=== PATIENT | female | born 1950 | race Caucasian/White ===

== ENCOUNTER → 2016-04-13 14:02 | Outpatient (CLI) | payer MEDICARE ==
[2016-01-31 13:47] VITALS: BMI 21.8
[~2016-04-13 14:02] MED LIST: ABILIFY2 MG PO; ALBUTEROL2.5 MG/0.5 UPD; ALDACTONE50 MG PO; BACLOFEN10 MG PO; BACTRIM DS TABL1 TAB PO; CARAFATE1 G PO; CYCLOBENZAPRINE10 MG PO; DEMEROL50 MG PO; ELIQUIS2.5 MG PO; ENULOSE10 G/15 ML PO; FERROUS SULFAT325 MG PO; HYDRALAZINE HCL10 MG PO; K-DUR20 MEQ PO; KLOR-CON M2020 MEQ PO; LASIX40 MG PO; MAG-OXIDE400 MG PO; MAGNESIUM OXID250 MG PO; NADOLOL20 MG PO; NIACIN100 MG PO; NORVASC10 MG PO; NYSTATIN ORAL SU5 ML PO; ONDANSETRON4 MG/2 M3 IV; PAXIL10 MG PO; PHENERGAN25 M1 PO; PRILOSEC20 MG PO; PRINIVIL20 MG PO; PRISTIQ50 MG PO; PROTONIX40 MG PO; REMERON30 MG PO; RESTORIL15 MG PO; TRAZODONE HCL50 MG PO; ULTRAM50 MG PO; VENTOLIN HFA18 GM INH; XANAX0.5 MG PO; XIFAXAN550 MG PO; ZOFRAN4 MG PO; ZYLOPRIM100 MG PO
== END | disposition home or self-care (01) ==
LOC: D.MRI 14:02
DX: M25.561 Pain in right knee (principal)

== ENCOUNTER → 2016-04-19 18:04 | Outpatient (CLI) | payer MEDICARE ==
[2016-01-31 13:47] VITALS: BMI 21.8
== END | disposition home or self-care (01) ==
LOC: D.LABREF 18:04
DX: M17.11 Unilateral primary osteoarthritis, right knee (principal); Z11.8 Encounter for screening for other infectious and parasitic diseases

== ENCOUNTER 2016-05-04 08:30 | Inpatient (IN) | payer MEDICARE ==
[~2016-05-04] VITALS: Ht 167.6 cm; Wt 61.4 kg
[2016-05-04 08:25] LABS: BASOPHILS 0.5 % (0.0-2.0); EOSINOPHILS 3.7 % (0-7); HEMATOCRIT 35.2 % (36.0-48.0); HEMOGLOBIN 11.5 g/dL (12-16); LYMPHOCYTES 47.4 % (15-50); MCH 31.6 pg (26.0-34.0); MCHC 32.7 g/dL (31.0-37.0); MCV 96.7 fL (80.0-100.0); MEAN PLATELET VOLUME 9.9 fL (7.4-10.4); MONOCYTES 15.2 % (2-11); NEUTROPHILS 33.2 % (40-80); PLATELET COUNT 210 10x3/uL (130-400); RBC 3.64 10x6/uL (4.00-5.40); RDW 15.5 % (11.5-14.5); WBC 5.7 10x3/uL (4.8-10.8)
[~2016-05-04 08:30] MED LIST changes: -ELIQUIS2.5 MG PO
[2016-05-04 08:38] LABS: APPEARANCE CLEAR (CLEAR); BILIRUBIN NEGATIVE (NEGATIVE); COLOR YELLOW (YELLOW); EPITHELIAL CELLS 0-5 /hpf (0-5); GLUCOSE NEGATIVE (NEGATIVE); KETONE NEGATIVE (NEGATIVE); LEUKOCYTE ESTERASE NEGATIVE (NEGATIVE); NITRITE NEGATIVE (NEGATIVE); PROTEIN 1+ mg/dL (NEGATIVE); RED CELLS - URINE 0-5 /hpf (0-5); SPECIFIC GRAVITY 1.015 (1.005-1.020); UROBILINOGEN NORMAL (NORMAL); WHITE CELLS - URINE OCC /hpf (0-5)
[2016-05-04 08:39] LABS: BACTERIA FEW /hpf (NONE SEEN); MUCUS <1+ /lpf (NONE SEEN)
[2016-05-04 08:43] LABS: ALBUMIN 3.5 g/dL (3.4-5.0); ANION GAP 18.1 mmol/L (8-16); BILIRUBIN - TOTAL 0.4 mg/dL (0.2-1.3); CALCIUM 8.9 mg/dL (8.5-10.1); CARBON DIOXIDE 20.4 mmol/L (21.0-32.0); CREATININE - SERUM 2.1 mg/dL (0.6-1.3); POTASSIUM - SERUM 4.5 mmol/L (3.5-5.1); PROTEIN - SERUM 7.9 g/dL (6.4-8.2)
[2016-05-04 08:46] LABS: APTT 34.6 SECONDS (22.8-39.4); INR 1.14 (0.85-1.17); PROTIME 14.5 SECONDS (11.6-15.0)
[2016-05-08] VITALS (11 sets, daily range): BP systolic 110–159; BP diastolic 63–84; Ht 167.6 cm; Wt 61.4 kg
--- NOTE | 2016-05-08 12:34 | NUR ---
RIGHT LEG AND FOOT WASHED WITH HIBICLENS AND ALCOHOL PRIOR TO CHLORPREP PER MARGARITA
--- NOTE | 2016-05-08 18:07 | NUR ---
PATIENT CURRENTLY IN CPM MACHINE AND TOLERATING WELL. ICE TO KNEE. SCDS ON SINCE SURGERY. BED ALARM FOR SAFETY. STATES PAIN RELIEVED TO A 5/10 ON DEMEROL. CALL LIGHT IN REACH
--- NOTE | 2016-05-08 19:25 | NUR ---
RECIEVED SHIFT REPORT. PT IS LYING IN BED. ALERT AND ORIENTED AND ABLE TO VERBALIZE NEEDS. IV IS PATENT AND FLUIDS ARE RUNNING PER ORDER. CPM ON. SCD'S ON. O2 @ 2 PER NASAL CANNULA. DRESSING TO RIGHT KNEE C/D/I. PT STATES PAIN IS 6/10. NO NEEDS ARE VERBALIZED AT THIS TIME. WILL CONTINUE TO MONITOR. SIDE RAILS ARE UP X 2. BED IS IN LOWEST POSITION. BED ALARM IS ON FOR SAFETY. CALL LIGHT IS WITHIN REACH.
--- NOTE | 2016-05-08 21:25 | NUR ---
SHIFT ASSESSMENT COMPLETED. NIGHT MEDS GIVEN WITH NO PROBLEMS. NO NEEDS ARE VOICED. WILL MONITOR. SIDE RAILS X 2. BED LOW. BED ALARM ON. CALL LIGHT IN REACH.
[2016-05-09 01:00] VITALS: BP 114/66
[2016-05-09 05:00] VITALS: BP 122/70
[2016-05-09 07:09] LABS: HEMATOCRIT 29.4 % (36.0-48.0); HEMOGLOBIN 9.6 g/dL (12-16); MCH 31.1 pg (26.0-34.0); MCHC 32.7 g/dL (31.0-37.0); MCV 95.1 fL (80.0-100.0); RBC 3.09 10x6/uL (4.00-5.40); RDW 14.9 % (11.5-14.5); WBC 11.2 10x3/uL (4.8-10.8)
--- NOTE | 2016-05-09 07:15 | NUR ---
REPORT RECEIVED FROM PUBLIC POLICY COORDINATOR NURSE. CALL LIGHT IN REACH.
--- NOTE | 2016-05-09 07:15 | NUR ---
REPORT RECEIVED FROM REGULATORY TECHNICIAN NURSE. CALL LIGHT IN REACH.
--- NOTE | 2016-05-09 08:16 | NUR ---
* Is the patient Alert and Oriented? Yes 0 * How many steps to enter\exit or inside your home? 0 0 * PCP Dr. Sofia 0 * Pharmacy [facility] 0 * Preadmission Environment Home with Family 0 * ADLs Partial Dependent 0 * Partial ADLs (Assistance needed) Ambulation 0 * Equipment Rolling Walker 0 * List name and contact numbers for known caregivers / representatives who currently or will assist patient after discharge: Spouse - Chip [phone] 0 * Additional services required to return to the preadmission environment? Yes 0 * Can the patient safely return to the preadmission environment? Yes 0 * Has this patient been hospitalized within the prior 30 days at any hospital? No 05/09/2016 8:02 DCP: Discharge Planning Patient Name: ISRAEL CHAUDHARI Admission Status: Elective Accout number: [id number] Admission Date: 05-08-2016 : 1950 Admission Diagnosis: Attending: CAITLIN Current LOS: 1 Anticipated DC Date: 05-10-2016 Planned Disposition: Outpatient PT\OT Primary Insurance: MEDICARE A & B Discharge Planning Comments: CM met with patient to assess dc plans/needs. Patient states she lives at home with her , Chip. She reports she was using a walker prior to surgery for assistance with mobility. At dc, she will return home with her . She has chosen to come to [facility] for out patient physical therapy - appt. scheduled for 05/12 @ 1100. Rx faxed. A CPM has been ordered through [facility] by MD office & will be delivered to the home after DC. Anticipate DC 05/10. CM will follow. Senior Research Engineer: Aby Recio
--- NOTE | 2016-05-09 09:00 | NUR ---
ASSESSMENT COMPLETED. PERCOCET PO WITH AM MEDS ADMINISTERED. SCDs TO BLE. ICE O RIGHT KNEE. BED ALARM ON. CALL LIGHT IN REACH. WILL CONTINUE WITH PLAN OF CARE.
[2016-05-09 09:47] VITALS: BP 141/62
--- NOTE | 2016-05-09 10:16 | NUR ---
ANCEF IVPB PER ORDER. SITTING IN CHAIR.
--- NOTE | 2016-05-09 11:22 | NUR ---
DEMEROL 50 MG PO PER C/O PAIN OF 9. CALL LIGHT IN REACH.
--- NOTE | 2016-05-09 13:50 | NUR ---
LYINGIN BED WITH EYES CLOSED. RESP EVEN AND UNLABORED. CALL LIGHT IN REACH.
[2016-05-09 14:31] VITALS: BP 145/61
--- NOTE | 2016-05-09 15:07 | NUR ---
ZOFRAN 4 MG PO PER C/O NAUSEA. PERCOCET PO BECAUSE STATES PAIN IS STILL A 10. CALL LIGHT IN REACH.
[2016-05-09 15:57] VITALS: BP 144/61
--- NOTE | 2016-05-09 16:15 | NUR ---
RESTING WITH EYES CLOSED. RESP EVEN AND UNLABORED. CALL LIGHT IN REACH.
--- NOTE | 2016-05-09 18:32 | NUR ---
NO CHANGES IN INITIAL ASSESSMENT. SCDs TO BLE. BED ALARM ON. CALL LIGHT IN REACH. WILL CONTINUE WITH PLAN OF CARE.
--- NOTE | 2016-05-09 19:20 | NUR ---
RECIEVED SHIFT REPORT. PT IS LYING IN BED. ALERT AND ORIENTED AND ABLE TO VERBALIZE NEEDS. IV IS PATENT AND SALINE LOC AT THIS TIME. CPM ON. SCD'S ON. DRESSING TO RIGHT KNEE C/D/I. PT STATES PAIN IS 10/10. PT IS AMBULATORY WITH ASSISTANCE. NO NEEDS ARE VERBALIZED AT THIS TIME. WILL CONTINUE TO MONITOR. SIDE RAILS ARE UP X 2. BED IS IN LOWEST POSITION. BED ALARM IS ON FOR SAFETY. CALL LIGHT IS WITHIN REACH.
[2016-05-09 21:00] VITALS: BP 148/76
--- NOTE | 2016-05-09 21:28 | NUR ---
SHIFT ASSESSMENT COMPLETED. NIGHT MEDS GIVEN WITH NO PROBLEMS. PT C/O 12/12. ADMINISTERED PRESCRIBED PRN DEMEROL PER ORDER. DENIES FURTHER NEEDS. WILL MONITOR. SIDE RAILS X 2. BED LOW. BED ALARM ON. CALL LIGHT IN REACH.
[2016-05-10 01:00] VITALS: BP 150/66
[2016-05-10 05:00] VITALS: BP 149/66
[2016-05-10 06:32] LABS: HEMATOCRIT 29.3 % (36.0-48.0); HEMOGLOBIN 9.4 g/dL (12-16); MCHC 32.1 g/dL (31.0-37.0); MCV 96.7 fL (80.0-100.0); MEAN PLATELET VOLUME 10.1 fL (7.4-10.4); RBC 3.03 10x6/uL (4.00-5.40); RDW 15.4 % (11.5-14.5); WBC 9.5 10x3/uL (4.8-10.8)
--- NOTE | 2016-05-10 07:30 | NUR ---
RECIEVED PT DURING WALKING ROUNDS. PT RESTING IN BED WITH COMPLAINTS OF PAIN OF A 10 ON A SCALE OF 1-10. NO MEDICATION CAN BE GIVEN AT THIS TIME. PT ON CPM. ASSESSMENT DONE PER FLOWSHEET. BED IN LOW POSITION AND CALL LIGHT WITHIN REACH. WILL CONTINUE TO MONITOR.
--- NOTE | 2016-05-10 08:15 | NUR ---
PT TAKEN OFF CPM AT THIS TIME. PT WAS HAVING PAIN OF A 10 AT THIS TIME. NO MEDICATION TO BE GIVEN. BED IN LOW POSITION AND CALL LIGHT WITHIN REACH. WILL CONTINUE TO MONITOR.
--- NOTE | 2016-05-10 09:28 | NUR ---
ADMINISTERED DEMEROL PER ORDER AT THIS TIME FOR PAIN OF A 10 ON A SCALE OF 1-10. WILL CONTINUE TO MONITOR.
--- NOTE | 2016-05-10 11:00 | NUR ---
ASSISSTED PT BACK TO BED FROM CHAIR AT THIS TIME. BED IN LOW POSITION AND CALL LIGHT WITHIN REACH. WILL CONTINUE TO MONITOR.
[2016-05-10 11:04] VITALS: BP 157/65
[2016-05-10 11:48] VITALS: BP 135/61
--- NOTE | 2016-05-10 12:55 | NUR ---
WAS CALLED INTO ROOM AT THIS TIME DUE TO PT HAVING DIFICULTY BREATHING. SAT PT UP IN BED. O2 SAT 90-92% ON 2.5L INCREASED OXYGEN LEVEL TO 3L, HR 126. EXITED THE ROOM TO SPEAK WITH DR. MUNIZ IN THE [facility] AND RECIEVED ORDERS FOR UPDRAFTS, CALLED RESPIRATORY AT THIS TIME TO ADMINISTER TREATMENT, WENT INTO ROOM APPROX 10 MINUTES AFTER TREATMENT AND PT STATED SHE WAS BETTER AND HAVING NO DIFFICULTY. BED IN LOW POSITION AND CALL LIGHT WITHIN REACH. WILL CONTINUE TO MONITOR.
--- NOTE | 2016-05-10 13:10 | NUR ---
PERCOCET GIVEN AT THIS TIME PER ODER FOR PAIN OF A 10 ON A SCALE OF 1-10. WILL CONTINUE TO MONITOR.
--- NOTE | 2016-05-10 13:30 | NUR ---
FLUSHED PT IV AT THIS TIME AND IV WAS LEAKING, REMOVED DRESSING AND WAS UNABLE TO MAINTAIN CURRENT IV. REMOVED CATH HELD PRESSURE. ATTEMPTED TO RESITE TO THE LEFT FOREARM AND WAS UNSUCCESSFUL. AT THIS TIME NIC WINSTON RN ACCESSED THE PT LEFT CHEST PORT. IV FLUIDS AND MEDICATION ADMINISTERED THROUGH PORT AT THIS TIME. PT TOLERATED WELL. BED IN LOW POSITION AND CALL LIGHT WITHIN REACH. WILL CONTINUE TO MONITOR
--- NOTE | 2016-05-10 13:49 | NUR ---
05/10/2016 13:35 DCP: Discharge Planning Patient tearful, worried about getting up & down her steps at home. POC discussed with interdisciplinary team - patient would benefit from home physical therapy initially. Discussed with patient - she & spouse are agreeable to home health for physical therapy for a week or so, then changing to outpatient physical therapy here at [facility]. ATIF signed for [facility]. Initial referral faxed and called to Carey with [facility]. Anticipate DC tomorrow afternoon. CM will follow.
--- NOTE | 2016-05-10 14:00 | NUR ---
PT ASLEEP IN BED WITH NO VISABLE SIGNS OF PAIN OR DISCOMFORT AT THIS TIME. BED IN LOW POSITION AND CALL LIGHT WITHIN REACH. WILL CONTINUE TO MONITOR.
[2016-05-10 16:35] VITALS: BP 140/56
--- NOTE | 2016-05-10 16:47 | NUR ---
UP AT BEDSIDE.FAMILY IN ROOM.PT WITHOUT DISTRESS.
--- NOTE | 2016-05-10 18:25 | NUR ---
PT ON CPM AT THIS TIME
--- NOTE | 2016-05-10 19:00 | NUR ---
BEDSIDE REPORT RECEIVED AND CARE OF PT ASSUMED. PT LYING IN SUPINE POSITION WITH EYES CLOSED AND EASY RESPIRATIONS. IV IN RIGHT FA SALINE LOCKED. CPM IN USE ON RIGHT KNEE. WILL MONITOR COSELY FOR NEEDS.
[2016-05-10 20:48] VITALS: BP 111/41
--- NOTE | 2016-05-10 21:30 | NUR ---
CPM REMOVED. POSITIONED PT FOR COMFORT.
--- NOTE | 2016-05-10 21:52 | NUR ---
HS MEDICATIONS GIVEN TO INCLUDE REQUESTED PERCOCET FOR PAIN. WILL MONITOR FOR EFFECTIVENESS. SIDE RAILS UP X2 FOR SAFETY.
--- NOTE | 2016-05-10 23:40 | NUR ---
SPO2 DECREASED TO 79 AT THIS ASSESSMENT ON ROOM AIR. PLACED O2 VIA NC AT 3L AND SPO2 92% . WILL CONTINUE TO MONITOR CLOSELY.
[2016-05-11 00:18] VITALS: BP 110/47
--- NOTE | 2016-05-11 02:27 | NUR ---
SPO2 92% AT THIS ASSESSMENT WITH O2 AT 3L VIA NC. WILL CONTINUE TO MONITOR CLOSELY. SIDE RAILS UP X2 FOR SAFETY.
[2016-05-11 04:27] VITALS: BP 120/39
--- NOTE | 2016-05-11 07:15 | NUR ---
PATIENT RECEIVED ALERT IN HIGH PARKER POSITION. RESPIRATIONS EVEN AND UNLABORED. SIDE RAILS UP X3. RIGHT LEG IN CPM. C/O PAIN 10/12. BED IN LOW POSITION. CALL LIGHT IN REACH.
--- NOTE | 2016-05-11 07:30 | NUR ---
DEMEROL ADMINISTERED PER PRN ORDER. NO FURTHER NEEDS VOICED.
[2016-05-11 08:07] VITALS: BP 121/52
--- NOTE | 2016-05-11 08:25 | NUR ---
ALERT IN BED EATING BREAKFAST. TOLERATING WELL. SCHEDULED MEDICATION ADMINISTERED. SIDE RAILS UP X2. BED IN LOW POSITION. CALL LIGHT IN REACH.
[2016-05-11] MEDS ORDERED: ELIQUIS2.5 MG PO (08:41)
--- NOTE | 2016-05-11 10:36 | NUR ---
CM REASSESSMENT NOTE: PATIENT IS DISCHARGING HOME TODAY WITH [facility]. CPM WILL BE DELIVERED TO HOME BY [facility]. PATIENT STATED SHE HAS A WALKER AT HOME. [facility] WILL TRANSPORT PATIENT HOME TODAY
--- NOTE | 2016-05-11 11:20 | NUR ---
DRESSING TO RIGHT KNEE CHANGED. 25 PONCHO INTACT. CLEANSED WITH WOUND CLEANSER AND IODINE SWAB. NO REDNESS OR DRAINAGE NOTED TO SITE. NEW AQUACEL AG PLACED OVER SITE. IV TO RIGHT WRIST D/C WITH CATH TIP INTACT. SITE COVERED WITH GAUZE AND BANDAID.
--- NOTE | 2016-05-11 12:30 | NUR ---
D/C TEACHING AND PRESCRIPTIONS PROVIDED TO PATIENT AND . STATES UNDERSTANDING. QUESTIONS ANSWERED.
--- NOTE | 2016-05-11 12:35 | NUR ---
PATIENT D/C HOME WITH . TRANSFERRED DOWNSTAIRS VIA WHEELCHAIR WITH VOLUNTEER
--- NOTE | 2016-05-14 11:01 | OP ---
PATIENT NAME: ISRAEL CHAUDHARI MEDICAL RECORD: [id number] :[birth year] LOCATION:[id number] ADMISSION DATE:05/08/16 SURGEON: MEREDITH LOVE MD DATE OF OPERATION: 05/08/2016 PREOPERATIVE DIAGNOSES: Degenerative arthritis of the knee with osteonecrosis of the medial femoral condyle and a portion of the lateral femoral condyle. POSTOPERATIVE DIAGNOSES: Degenerative arthritis of the knee with osteonecrosis of the medial femoral condyle and a portion of the lateral femoral condyle PROCEDURES: Difficult primary right total knee arthroplasty. SURGEON: Meredith Love MD ANESTHESIA: General. INTRAOPERATIVE COMPLICATIONS: None. SUMMARY OF PATHOLOGIC FINDINGS: The patient had areas of the medial femoral condyle with head sunken in consistent with the preoperative diagnosis with sclerotic bone. IMPLANTS USED: Marcel unit for universal cement restrictor, triathlon total knee cemented stem 12 x 100, Marcel total stabilizer femoral component size 5 right, triathlon tibial baseplate universal baseplate size 5, tibial insert size 9. OPERATIVE SUMMARY IN DETAIL: After obtaining the appropriate preoperative orthopedic surgery consents as well as anesthetic consultation, evaluation and clearance, the patient was brought to the operating room, placed on the operating table in supine position. After general laryngeal mask was administered, tourniquet was placed about the proximal aspect of the right lower extremity. Right lower extremity was then prepped and draped in routine sterile fashion. The leg was elevated and exsanguinated, tourniquet inflated to 350 mmHg. Routine midline incision was taken down for paramedian arthrotomy. Patella was everted, distal femur was exposed. Distal femoral intramedullary guide hole was created for distal femoral cutting. Likewise, the proximal tibia was exposed. Soft tissue was excised. Intramedullary guide hole was created for proximal tibial cutting. Having completed this, measurements were taken and then the femur was serial and sequentially reamed to a size 14 for a 12 x 100 cemented stem. The 14 reamer was left in place to put on a cutting guide. Chamfer cuts were made. Boss reaming was done. Having completed this, the femoral trial component of the stem was put into place. Next, the tibial component was followed in into the appropriate position, stabilized and then tamped and bolstered in for the universal baseplate. The components were assembled on the back table and then cemented into place. After all excess cement was removed and the cement was allowed to harden, the knee was taken through a range of motion and found to be stable in all planes. The paramedian arthrotomy was closed with #2 Ethibond followed by #1 Vicryl, 2-0 Vicryl and skin wade. Sterile dressings were applied. Tourniquet was deflated. The patient was awakened, taken to recovery room in stable condition. All final needle and sponge counts were correct. TRANSINT:[id number] Voice Confirmation ID: [id number] DOCUMENT ID: [id number] OPERATIVE REPORT [id number] ISRAEL CHAUDHARI MD, MEREDITH HO at 1101 CC: [id number] DICTATION DATE: 05/08/16 141 MANAGER INTRANET: 05/08/16 2309 DIS IN 05/11/16 [id number] [place] [address]
== END 2016-05-11 12:35 | disposition home health service (06) | DRG 470 ==
LOC: D.SDCHOLD 05-08 06:30 → D.MS 05-08 06:30 → D.SDCHOLD 05-08 08:30 → D.MS 05-08 13:35
PROVIDERS: Anesthesiology; ADMIT Orthopaedic Surgery
PROC: 0SRC0J9 Replacement of Right Knee Joint with Synthetic Substitute, Cemented, Open Approach (ICD-10-PCS; principal; 2016-05-08 11:00)
DX: M17.11 Unilateral primary osteoarthritis, right knee (principal); M90.551 Osteonecrosis in diseases classified elsewhere, right thigh; E11.22 Type 2 diabetes mellitus with diabetic chronic kidney disease; I12.9 Hypertensive chronic kidney disease with stage 1 through stage 4 chronic kidney disease, or unspecified chronic kidney disease; N18.3 Chronic kidney disease, stage 3 (moderate); J44.9 Chronic obstructive pulmonary disease, unspecified; E03.9 Hypothyroidism, unspecified; K74.60 Unspecified cirrhosis of liver; B18.2 Chronic viral hepatitis C; F17.200 Nicotine dependence, unspecified, uncomplicated

== ENCOUNTER → 2016-05-19 11:48 | Outpatient (CLI) | payer MEDICARE ==
[2016-05-08 14:24] VITALS: BMI 21.8
[~2016-05-19 11:48] MED LIST changes: +ELIQUIS2.5 MG PO
== END | disposition home or self-care (01) ==
LOC: D.LABREF 11:48
DX: N18.9 Chronic kidney disease, unspecified (principal); K74.60 Unspecified cirrhosis of liver

== ENCOUNTER → 2016-11-21 12:52 | Outpatient (CLI) | payer MEDICARE ==
[2016-05-08 14:24] VITALS: BMI 21.8
== END | disposition home or self-care (01) ==
LOC: D.MRI 12:52
DX: M54.16 Radiculopathy, lumbar region (principal)

== ENCOUNTER 2017-05-27 17:32 | Inpatient (IN) | payer MEDICARE ==
[~2017-05-27] VITALS: Ht 167.6 cm; Wt 61.2 kg
--- NOTE | ~2017-05-27 | HEMODYNAMI ---
PATIENT:ISRAEL CHAUDHARI MEDICAL RECORD: [id number] : 48 LOCATION:[address] [facility]# [id number] ADMISSION DATE: 05/27/17 Generatedon:05/28/20178:42 Patient name: ISRAEL CHAUDHARI Patient #: [id number] SSN: DO B: 1950 Date of study: 05/28/2017 Page: Of Hemodynamic Procedure Report Patient Data Patient Demographics Procedure consent was obtained First Name: ISRAEL Gender: Female Last Name: WATSON : 1950 Middle Initial: NICK Age: 66 year(s) Patient #: [id number] Race: Additional ID: [id number] Contact details Address: [address] [place] [address] State: [place] City: [facility] Zip code: [address] Past Medical History History of disease Date Diagnosis Comments Liver disease Allergies Allergen Reaction Date Comments Reported Penicillins 01/19/2015 Morphine 01/19/2015 Other allergy 01/19/2015 TIGAN, TRANXENE, DILAUDID, LACTOSE Other allergy 05/28/2017 Dilaudid, Tigan, Morphine Admission Admission Data Admission Date: 05/27/2017 Admission Time: 19:50 Room #: D.2121 Lab Results Lab Result Date: 05/28/2017 Lab Result Time: 0:00 Biochemistry Name Units Result Min Max BUN mg/dl 52 --(----)-* 7 18 Creatinine mg/dl 2.6 --(----)-* 0.6 1.3 CBC Name Units Result Min Max Hemoglobin g/dl 8 *-(----)-- 13.5 17.5 Procedure Procedure Types Cath Procedure Diagnostic Procedure LHC LHC w/Coronaries Procedure Description Procedure Date Procedure Date: 05/28/2017 Procedure Start Time: 8:15 Procedure End Time: 8:33 Procedure Staff Name Function Nathalia Holliday RN Nurse Narayan Wynn RT Monitor Paulie Carlin MD Performing Physician Marlene Banda RT Scrub Procedure Data Cath Procedure Fluoroscopy Diagnostic fluoroscopy Total fluoroscopy Time: 2.2 time: 2.2 min min Diagnostic fluoroscopy Total fluoroscopy dose: 2.2 dose: 2.2 mGy mGy Contrast Material Contrast Material Type Amount (ml) Isovue 300 26 Entry Location Entry Primary Successful Side Size Upsize Upsize Entry Closure Succes sful Closure Location (Fr) 1 (Fr) 2 (Fr) Remarks Device Remarks Femoral Right 5 Fr Exoseal artery Estimated blood loss: 5 ml Diagnostic catheters Device Type Used For End Catheter Placement MULTIPACK JL 4.0 5Fr Procedure catheter MULTIPACK 3DRC 5Fr Procedure catheter MULTIPACK Pigtail 5 Fr Procedure catheter Procedure Complications No complications Procedure Medications Medication Administration Route Dosage 0.9% NaCl I.V. 100 ml/hr Oxygen NC 2 l/min Heparin Flush Bag added to field 2 bags (1000units/500ml NS) Lidocaine 2% added to field 20 Versed I.V. 2 mg Fentanyl I.V. 25 mcg Lopressor I.V. 5 mg Hemodynamics Rest HGB: 8 (g/dl) Heart Rate: 92 (bpm) Pressure Samples Time Site Value (mmHg) Purpose Heart Use Rate(bpm) 8:25 LV 209/2,25 EDP 84 Gradients Valve Time Site Site Mean SEP/DFP Peak To Heart Use 1 2 (mmHg) (sec/min) Peak Rate (mmHg) (bpm) Aortic 8:25 LV AO 84 Snapshots Pre Cath Intra NCS Post Cath Vital Signs Time Heart Resp SPO2 etCO2 NIBP (mmHg) Rhythm Pain Sedation Rate (ipm) (%) (mmHg) Status Level (bpm) 8:03:06 75 19 97 0 150/101(137) NSR 0 (11) 10(A) , No pain 8:08:25 78 15 98 13.5 191/93(158) NSR 0 (11) 10(A) , No pain 8:13:14 74 15 98 18 180/88(149) NSR 0 (11) 10(A) , No pain 8:18:01 78 21 96 21.7 171/86(140) NSR 0 (11) 10(A) , No pain 8:22:46 83 22 96 21.7 177/91(144) NSR 0 (11) 10(A) , No pain 8:27:32 75 14 97 24 170/85(136) NSR 0 (11) 10(A) , No pain 8:32:17 69 17 97 24 184/91(147) NSR 0 (11) 10(A) , No pain Medications Time Medication Route Dose Verified Delivered Reason Notes Eff ectiveness by by 8:06:09 0.9% NaCl I.V. 100 Reji Reji Per ml/hr juliet Carr physician RN RN 8:06:24 Oxygen NC 2 Reji Reji Per l/min juliet Carr physician RN RN 8:06:38 Heparin Flush added 2 Reji Reji used for Bag to bags juliet Carr procedure (1000units/500ml field RN RN NS) 8:06:52 Lidocaine 2% added 20ml Reji Reji for local to vial juliet Carr anesthetic field RN RN 8:14:54 Versed I.V. 2 mg Reji Reji for sedation juliet Carr RN RN 8:15:05 Fentanyl I.V. 25 Reji Reji for sedation mcg juliet Carr RN RN 8:27:27 Lopressor I.V. 5 mg Reji Reji for juliet Carr hypertension RN property analyst Log Time Note 7:35:08 Signed procedure consent form obtained from patient. 7:35:54 Lab Result : Hemoglobin 8 g/dl 7:35:54 Lab Result : Creatinine 2.6 mg/dl 7:35:54 Lab Result : BUN 52 mg/dl 7:45:02 Nathalia Holliday RN sent for patient. Start room use. 7:57:59 Diagnostic Cath status Elective 7:58:08 Time tracking: Regular hours 7:58:12 Plan of Care:Hemodynamics will remain stable., Cardiac rhythm will remain stable., Comfort level will be maintained., Respiratory function will remain adequate., Patient/ family verbilizes understanding of procedure., Procedure tolerated without complication., Recovers from procedure without complications.. 7:58:27 Patient received from Med II to CCL 1 Alert and oriented. Tansferred to table in Supine position. 7:58:28 Warm blankets applied, and mercedes hugger turned on for patient comfort. 7:58:29 Correct patient and procedure confirmed by team. 7:58:32 ECG and BP/O2 sat monitors applied to patient. 8:02:12 Vital chart was started 8:02:23 H&P Date Dictated: 05/28/2017 Within 30 days and on chart.. 8:02:25 Pre-op teaching completed and patient verbalized understanding. 8:02:25 Pre-procedure instructions explained to patient. 8:02:32 Family unavailable. 8:02:34 Patient NPO since Midnight. 8:02:45 Is the patient allergic to Iodine/contrast media? No. 8:02:47 Is patient on blood thinner?Yes 8:02:51 ACC The patient was administered the following blood thiners within the last 24 hours: ACCPlavix 8:02:53 Patient diabetic? No. 8:03:01 Previous problem with sedation/anesthesia? No ? 8:03:02 Snore? Yes 8:03:03 Sleep apnea? No 8:03:04 Deviated septum? No 8:03:05 Sticks out tongue? Yes 8:03:05 Opens mouth fully? Yes 8:03:08 Airway obstruction? Yes copd 8:03:11 Dentures? Yes in tight 8:03:15 Pre procedure: right dorsailis pedis pulse 2+ Normal; easily identifiable; not easily obliterated 8:03:17 Patient pain scale 0/10 ?. 8:04:28 MICROPUNCTURE 4FR BiPar Sciences ([id number]) opened to sterile field. 8:04:40 IV patent on arrival in right wrist with 0.9% NaCl at KVO. 8:04:45 Lab results completed and on chart. 8:04:54 Right groin area was prepped with chlora-prep and draped in sterile fashion 8:05:10 Alarms reviewed by R. N. 8:05:11 Sharps counted by scrub and verified by R.N. 8:05:13 Use device set Femoral Dx 8:05:14 ACIST Syringe (56496) opened to sterile field. 8:05:15 Bag Decanter (2002S) opened to sterile field. 8:05:23 Medline Cath Pack ([id number]) opened to sterile field. 8:05:27 SHEATH 5Fr Prelude ([id number]) opened to sterile field. 8:05:32 Tegaderm 4 x 4 (1626W) opened to sterile field. 8:05:33 ACIST Manifold (11622) opened to sterile field. 8:05:34 ACIST Hand Control (51701) opened to sterile field. 8:05:38 DIAGNOSTIC Multipack 5Fr catheter set (AG7880) opened to sterile field. 8:05:39 DIAGNOSTIC WIRE .035 260cm J wire (226011) opened to sterile field. 8:05:50 Baseline sample Acquired. 8:05:56 Rhythm: sinus rhythm 8:06:03 --------ALL STOP TIME OUT------ 8:06:03 Physician arrived 8:06:04 Final Timeout: patient, procedure, and site verified with staff and physician. All members of the team are in agreement. 8:06:05 Right groin site verified by team. 8:06:08 Physical assessment completed. ASA score P 2 - A patient with mild systemic disease as per Paulie Carlin MD. 8:06:09 0.9% NaCl 100 ml/hr I.V. was administered by Reji Carr RN; Per physician; 8:06:10 Sedation plan: IV Moderate Sedation Medication:Versed, Fentanyl 8:06:24 Oxygen 2 l/min NC was administered by Reji Carr RN; Per physician; 8:06:38 Heparin Flush Bag (1000units/500ml NS) 2 bags added to field was administered by Reji Carr RN; used for procedure; 8:06:52 Lidocaine 2% 20ml vial added to field was administered by Reji Carr RN; for local anesthetic; 8:09:40 Patient allergic to Other allergyDilaudid, Tigan, Morphine 8:14:54 Versed 2 mg I.V. was administered by Reji Carr RN; for sedation; 8:15:05 Fentanyl 25 mcg I.V. was administered by Reji Carr RN; for sedation; 8:15:18 Full Disclosure recording started 8:15:18 Procedure started. 8:15:20 Local anesthetic to right femoral artery with Lidocaine 2% by Paulie Carlin MD.INITIAL ACCESS ONLY 8:15:25 Access obtained with 4Fr micropunture. 8:15:32 A 5 Fr sheath was inserted into the Right Femoral artery 8:16:34 Zero performed for pressure channel P1 8:20:03 GLIDE WIRE .038 180cm ANGLED (LL1623) opened to sterile field. 8:20:16 glide wire advanced 8:20:19 Wire removed. 8:22:05 A MULTIPACK JL 4.0 5Fr catheter was advanced over the wire and used for Procedure. 8:22:10 LCA angiography performed. 8:22:11 Catheter exchanged over wire. 8:22:19 A MULTIPACK 3DRC 5Fr catheter was advanced over the wire and used for Procedure. 8:23:06 RCA angiography performed. 8:23:15 Catheter exchanged over wire. 8:23:27 A MULTIPACK Pigtail 5 Fr catheter was advanced over the wire and used for Procedure. 8:25:03 LV hemodynamics recorded. 8:25:06 LV gram done using POSEY 8::08 Injector settings: Ml/sec: 12, Volume: 8, 8:25:34 EF : 50 % 8:25:37 Catheter removed. 8:25:54 EXOSEAL 5Fr (EX500) opened to sterile field. 8::02 Sheath removed intact; hemostasis achieved with Exoseal to the Right Femoral artery. 8:26:03 Procedure ended.(Physican Out) 8::27 Lopressor 5 mg I.V. was administered by Reji Carr RN; for hypertension; 8::53 Fluoroscopy time 02.20 minutes. 8:30:33 Fluoroscopy dose: 2.2 mGy 8:30:33 Flurop Dose total: 2.2 8::57 Contrast amount:Isovue 300 26ml. 8:30:59 Sharps counted by scrub and verified by R.N. 8:31:00 Insertion/operative site no bleeding no hematoma. 8:31:04 Post-op/insertion site Right Femoral artery dressed using a 4 x 4 and Tegaderm. 8:31:22 Post right femoral artery:stable, soft, clean and dry 8:31:23 Post Procedure Pulses reassessed and unchanged 8:31:26 Post-procedure physical assessment completed. ASA score P 2 - A patient with mild systemic disease as per Paulie Carlin MD. 8:31:28 Post procedure rhythm: unchanged. 8:31:35 Estimated blood loss: 5 ml 8:31:36 Patient needs reinforcement of post procedure teaching. 8:31:36 Post procedure instruction explained to patient.Patient verbalizes understanding. 8:32:52 Procedure and supply charges have been captured, reviewed, submitted and are correct. 8:32:55 Procedure Complication : No complications 8:32:57 Vital chart was stopped 8:32:58 See physician's report for complete and final results. 8:32:59 Report given to PCU. 8:33:01 Patient transfered to PCU with Stretcher. 8:33:03 Full Disclosure recording stopped 8:33:03 Procedure ended. 8:33:09 End room use (Document Last) 8:41:37 FEMSTOP Gold (M33419) opened to sterile field. 8:41:41 Femstop placed over the right femoral artery at 210 mmHg. Hemostasis achieved. Device Usage Item Name Manufacture Quantity Catalog Hospital Part Current Minima l Lot# / Number Charge Number Stock Stock Serial# Code ACIST Syringe Acist 1 42576 428409 899860 638319 20 (90969) Medical Systems Inc Bag Decanter Microtek 1 2001S 000758 48599 534641 5 () Medical Inc. Medline Cath Cardinal 1 [id number] 362998 17017 388916 5 [place] Approach ([id number]) Tegaderm 4 x 3M 1 1626W 520425 150439 537443 5 4 (1626W) ACIST Acist 1 91584 540722 451579 591079 5 Manifold Medical (99269) Systems Inc ACIST Hand Acist 1 17915 809403 509978 956158 5 Control Medical (60690) Systems Inc DIAGNOSTIC Cardinal 1 MU6007 993532 17724 733367 30 Multipack 5Fr Health catheter set (LX8521) DIAGNOSTIC St Artem 1 175965 204331 084631 270888 30 WIRE .035 260cm J wire (503560) SHEATH 5Fr Merit 1 [id number] 497355 286773 856023 5 Prelude Medical ([id number]) GLIDE WIRE Terumo 1 CQ1108 007854 762927 5 .038 180cm ANGLED (NR0739) MULTIPACK JL Cardinal 1 477205 5 4.0 5Fr Health catheter MULTIPACK Cardinal 1 575824 5 3DRC 5Fr Health catheter MULTIPACK Cardinal 1 428581 5 Pigtail 5 Fr Health catheter EXOSEAL 5Fr Cardinal 1 EX500 177356 061539 594419 10 (EX500) Health MICROPUNCTURE Cook Medical 1 B36259 291434 512506 164690 5 4FR BiPar Sciences (M75305) FEMSTOP Gold St Artem 1 O53015 072590 228442 571217 5 (F67199) Signature Audit [place] Stage Time Signature Unsigned Intra-Procedure 05/28/2017 Narayan Wynn RT(R) 8:33:44 AM RT(R) 05/28/2017 8:41:24 AM Intra-Procedure 05/28/2017 Narayan Wynn 8:42:48 AM RT(R) Signatures Monitor : Narayan Wynn RT Signature : Date : Time : [place] [id number] [place] [address]
[2017-05-27 18:26] LABS: BASOPHILS 0.2 % (0-2); EOSINOPHILS 1.6 % (0-7); HEMATOCRIT 26.9 % (36.0-48.0); HEMOGLOBIN 8.6 g/dL (12-16); LYMPHOCYTES 32.3 % (15-50); MCH 31.4 pg (26.0-34.0); MCV 98.2 fL (80.0-100.0); MEAN PLATELET VOLUME 9.4 fL (7.4-10.4); MONOCYTES 8.2 % (2-11); NEUTROPHILS 57.7 % (40-80); PLATELET COUNT 190 10x3/uL (130-400); RBC 2.74 10x6/uL (4.00-5.40); RDW 14.3 % (11.5-14.5); WBC 6.1 10x3/uL (4.8-10.8)
[2017-05-27 19:40] LABS: ALBUMIN 3.6 g/dL (3.4-5.0); ALKALINE PHOSPHATASE 95 U/L (46-116); ALT (SGPT) 25 U/L (10-68); BILIRUBIN - TOTAL 0.31 mg/dL (0.2-1.3); CALC OSMOLALITY 300 mosm/kg (275-300); CALCIUM 8.4 mg/dL (8.5-10.1); CARBON DIOXIDE 18.1 mmol/L (21.0-32.0); CHLORIDE - SERUM 112 mmol/L (98-107); GLUCOSE 108 mg/dL (74-106); POTASSIUM - SERUM 4.7 mmol/L (3.5-5.1); PROTEIN - SERUM 7.5 g/dL (6.4-8.2); SODIUM 144 mmol/L (136-145); UREA NITROGEN 49 mg/dL (7-18); eGFR NON AFRICAN AMERICAN 16 mL/min (90-120)
[2017-05-27 19:49] LABS: CKMB 3.8 U/L (0.0-3.6); CREATINE KINASE 88 UL (21-215)
[2017-05-27 19:51] LABS: TROPONIN-I 0.097 ng/mL (0.000-0.060)
[2017-05-28 02:37] VITALS: BP 180/78; BMI 21.8
[2017-05-28 05:24] LABS: BASOPHILS 0 % (0-2); EOSINOPHILS 0 % (0-7); IMMATURE GRANULOCYTES 0.2 % (0-5); LYMPHOCYTES 18.3 % (15-50); MCH 30.5 pg (26.0-34.0); MEAN PLATELET VOLUME 9.6 fL (7.4-10.4); NEUTROPHILS 80.5 % (40-80); PLATELET COUNT 194 10x3/uL (130-400); RBC 2.62 10x6/uL (4.00-5.40); RDW 14.1 % (11.5-14.5)
[2017-05-28 05:30] LABS: MCV 95.4 fL (80.0-100.0); WBC 4.2 10x3/uL (4.8-10.8)
[2017-05-28 05:41] LABS: ANION GAP 18.3 mmol/L (8-16); CALCIUM 8.4 mg/dL (8.5-10.1); CREATININE - SERUM 2.6 mg/dL (0.6-1.3); POTASSIUM - SERUM 5.3 mmol/L (3.5-5.1); TROPONIN-I 0.023 ng/mL (0.000-0.060)
[2017-05-28 13:48] VITALS: BMI 21.7
[2017-05-28 13:50] VITALS: Ht 167.6 cm; Wt 61.2 kg
[2017-05-28 16:20] VITALS: BP 169/88
[2017-05-28 21:00] VITALS: BP 125/68
[2017-05-29 00:24] VITALS: BP 135/65
[2017-05-29 05:31] VITALS: BP 153/78
[2017-05-29 08:00] VITALS: BP 149/72
[2017-05-29 11:46] VITALS: BP 124/70
[2017-05-29 15:11] VITALS: BP 148/71
[2017-05-30] VITALS: BP 148/70
[2017-05-30 06:21] LABS: BASOPHILS 0 % (0-2); EOSINOPHILS 0 % (0-7); HEMATOCRIT 23.7 % (36.0-48.0); HEMOGLOBIN 7.6 g/dL (12-16); IMMATURE GRANULOCYTES 0.1 % (0-5); LYMPHOCYTES 9.3 % (15-50); MCH 31.1 pg (26.0-34.0); MCHC 32.1 g/dL (31.0-37.0); MCV 97.1 fL (80.0-100.0); MEAN PLATELET VOLUME 9.8 fL (7.4-10.4); MONOCYTES 3.1 % (2-11); NEUTROPHILS 87.5 % (40-80); PLATELET COUNT 202 10x3/uL (130-400); RBC 2.44 10x6/uL (4.00-5.40); RDW 14.4 % (11.5-14.5)
[2017-05-30 06:31] LABS: ANION GAP 17.4 mmol/L (8-16); CALCIUM 7.9 mg/dL (8.5-10.1); CARBON DIOXIDE 19.2 mmol/L (21.0-32.0); CREATININE - SERUM 2.5 mg/dL (0.6-1.3); MAGNESIUM - SERUM 1.3 mg/dL (1.8-2.4); PHOSPHOROUS 4.1 mg/dL (2.5-4.9); POTASSIUM - SERUM 4.6 mmol/L (3.5-5.1)
[2017-05-30 10:52] VITALS: BP 152/71
[2017-05-30] MEDS ORDERED: MEDROL DOSE PACK4 MG PO (10:52)
== END 2017-05-30 13:35 | disposition home or self-care (01) | DRG 192 ==
LOC: D.ER 17:32 → D.EDHOLD 19:50 → OBSVTIME 19:50 → D.M2 19:50
PROVIDERS: Family Medicine; Internal Medicine Cardiovascular Disease; Internal Medicine Pulmonary Disease
PROC: B2151ZZ Fluoroscopy of Left Heart using Low Osmolar Contrast (ICD-10-PCS; 2017-05-28)
PROC: 4A023N7 Measurement of Cardiac Sampling and Pressure, Left Heart, Percutaneous Approach (ICD-10-PCS; 2017-05-28)
PROC: B2111ZZ Fluoroscopy of Multiple Coronary Arteries using Low Osmolar Contrast (ICD-10-PCS; principal; 2017-05-28 07:45)
DX: J44.1 Chronic obstructive pulmonary disease with (acute) exacerbation (principal); E11.22 Type 2 diabetes mellitus with diabetic chronic kidney disease; I12.9 Hypertensive chronic kidney disease with stage 1 through stage 4 chronic kidney disease, or unspecified chronic kidney disease; N18.3 Chronic kidney disease, stage 3 (moderate); F17.200 Nicotine dependence, unspecified, uncomplicated; F41.8 Other specified anxiety disorders; I25.10 Atherosclerotic heart disease of native coronary artery without angina pectoris; E11.21 Type 2 diabetes mellitus with diabetic nephropathy; J30.9 Allergic rhinitis, unspecified; K74.60 Unspecified cirrhosis of liver; B19.20 Unspecified viral hepatitis C without hepatic coma

== ENCOUNTER → 2017-07-12 12:31 | Outpatient (CLI) | payer MEDICARE, MEDICAID ==
[2017-05-28 13:50] VITALS: BMI 21.8
[~2017-07-12 12:31] MED LIST changes: +MEDROL DOSE PACK4 MG PO
== END | disposition home or self-care (01) ==
LOC: D.US 12:31
DX: I12.9 Hypertensive chronic kidney disease with stage 1 through stage 4 chronic kidney disease, or unspecified chronic kidney disease (principal); N18.3 Chronic kidney disease, stage 3 (moderate); N17.9 Acute kidney failure, unspecified; B18.2 Chronic viral hepatitis C

== ENCOUNTER → 2017-10-17 12:36 | Outpatient (CLI) | payer MEDICARE ==
[2017-05-28 13:50] VITALS: BMI 21.8
== END | disposition home or self-care (01) ==
LOC: D.RT 12:36
DX: R93.8 Abnormal findings on diagnostic imaging of other specified body structures (principal); J44.9 Chronic obstructive pulmonary disease, unspecified

== ENCOUNTER → 2018-01-17 17:01 | Outpatient (CLI) | payer MEDICARE, MEDICAID ==
[2017-05-28 13:50] VITALS: BMI 21.8
[~2018-01-17 17:01] MED LIST changes: +DEMEROL100 MG PO
[2018-01-17 17:29] LABS: BASOPHILS 0.4 % (0-2); EOSINOPHILS 2.4 % (0-7); HEMATOCRIT 29.6 % (36.0-48.0); HEMOGLOBIN 9.5 g/dL (12-16); IMMATURE GRANULOCYTES 0.3 % (0-5); LYMPHOCYTES 40.8 % (15-50); MCH 29.3 pg (26.0-34.0); MCHC 32.1 g/dL (31.0-37.0); MCV 91.4 fL (80.0-100.0); MONOCYTES 12.1 % (2-11); PLATELET COUNT 256 10x3/uL (130-400); RBC 3.24 10x6/uL (4.00-5.40); RDW 15.3 % (11.5-14.5); WBC 6.7 10x3/uL (4.8-10.8)
[2018-01-17 18:55] LABS: ERYTHROCYTE SEDIMENTATION RATE 72 mm/hr (0-30)
== END | disposition home or self-care (01) ==
LOC: D.LABREF 17:01
PROVIDERS: Clinical Nurse Specialist Family Health
DX: M25.562 Pain in left knee (principal)

== ENCOUNTER 2018-01-28 09:35 | Day surgery (SDC) | payer MEDICARE, MEDICAID ==
[~2018-01-28] VITALS: Ht 167.6 cm; Wt 59.0 kg
--- NOTE | ~2018-01-28 | OP ---
PATIENT NAME: ISRAEL CHAUDHARI MEDICAL RECORD: [id number] :48 LOCATION:D.OPS ADMISSION DATE: SURGEON: MEREDITH LOVE MD DATE OF OPERATION: 01/28/2018 PREOPERATIVE DIAGNOSIS: Pretibial hematoma of the right leg. POSTOPERATIVE DIAGNOSIS: Pretibial hematoma of the right leg. PROCEDURE: Evacuation of pretibial hematoma with primary closure. SURGEON: Meredith Love MD ANESTHESIA: General. INTRAOPERATIVE COMPLICATIONS: None. SUMMARY OF PATHOLOGIC FINDINGS: As expected, the patient had a coagulum of hematoma that was expressed easily. This was lavaged and closed. OPERATIVE SUMMARY IN DETAIL: After obtaining the appropriate preoperative orthopedic surgery consent as well as anesthetic consultation, evaluation and clearance, the patient was brought to the operating room and placed on the operating table in supine position. After adequate general laryngeal mask airway was administered, the patient's right lower extremity was prepped and draped in a routine sterile fashion. A small incision was made directly over the hematoma down to the level of the periosteum and at this point, copious amounts of hematoma was expressed. Combination of curettage as well as rongeur were utilized to debride the residual of the hematoma and all hematoma was completely removed. The wound was irrigated further time and then closed with 3-0 Prolene in a vertical mattress style fashion. Pressure dressings were applied. The patient was awakened, taken to the recovery room in stable condition. All final needle and sponge counts were correct. TRANSINT:[id number] Voice Confirmation ID: [id number] DOCUMENT ID: [id number] MEREDITH LOVE MD at 0840 CC: [id number] DICTATION DATE: 01/30/18 1638 ORTHODONTIST: 01/30/18 2324 [facility] 01/28/[address] [facility] [address] [place] [address]
[~2018-01-28 09:35] MED LIST changes: -DEMEROL100 MG PO
[2018-01-28 10:13] LABS: ALBUMIN 3.4 g/dL (3.4-5.0); ANION GAP 16.4 mmol/L (8-16); BILIRUBIN - TOTAL 0.2 mg/dL (0.2-1.3); CREATININE - SERUM 2.4 mg/dL (0.6-1.3); POTASSIUM - SERUM 4.4 mmol/L (3.5-5.1); PROTEIN - SERUM 8.1 g/dL (6.4-8.2)
[2018-01-28 10:14] LABS: INR 1.16 (0.85-1.17); PROTIME 14.3 SECONDS (11.6-15.0)
[2018-01-28 10:15] LABS: APTT 35.1 SECONDS (22.8-39.4)
[2018-01-28 10:20] LABS: HEMATOCRIT 30.3 % (36.0-48.0); HEMOGLOBIN 9.7 g/dL (12-16); MCH 29.5 pg (26.0-34.0); MCV 92.1 fL (80.0-100.0); MEAN PLATELET VOLUME 9.6 fL (7.4-10.4); RBC 3.29 10x6/uL (4.00-5.40); RDW 14.7 % (11.5-14.5); WBC 4.9 10x3/uL (4.8-10.8)
[2018-01-28 10:37] VITALS: BP 136/63; Ht 167.6 cm; Wt 59.0 kg
[2018-01-28] MEDS ORDERED: DEMEROL100 MG PO (14:41)
== END 2018-01-28 16:30 | disposition home or self-care (01) ==
LOC: D.OPS 09:35 → D.PAN 12:45 → D.OPS 12:45
PROVIDERS: Anesthesiology
DX: S80.11XA Contusion of right lower leg, initial encounter (principal); X58.XXXA Exposure to other specified factors, initial encounter; E11.9 Type 2 diabetes mellitus without complications; J43.9 Emphysema, unspecified; Z72.0 Tobacco use

== ENCOUNTER → 2018-04-23 18:30 | Outpatient (CLI) | payer MEDICARE, MEDICAID ==
[2018-01-28 10:37] VITALS: BMI 21.0
[~2018-04-23 18:30] MED LIST changes: +DEMEROL100 MG PO
== END | disposition home or self-care (01) ==
LOC: D.MAMMO 04-10 10:15
DX: Z12.31 Encounter for screening mammogram for malignant neoplasm of breast (principal)

== ENCOUNTER 2018-11-25 17:11 | Inpatient (IN) | payer MEDICARE, MEDICAID ==
[~2018-11-25] VITALS: Ht 167.6 cm; Wt 62.4 kg
--- NOTE | 2018-11-25 17:52 | NUR ---
PT ARRIVED VIA WHEELCHAIR, ALERT AND ORIENTED UP WITHOUT ASSIST. NO COMPLAINTS/COCNERNS, AT BEDSIDE. CL IN REACH, SRX2L
[2018-11-25 18:31] LABS: HEMATOCRIT 22.5 % (36.0-48.0)
[2018-11-25 18:39] LABS: HEMOGLOBIN 7.3 g/dL (12-16)
--- NOTE | 2018-11-25 19:20 | NUR ---
PT CARE ASSUMED. BEDSIDE SHIFT REPORT COMPLETE. PT IN BED RR EVEN AND UNLABORED. O2 ON VIA NC 2L. NO S/S OF DISTRESS NOTED AT THIS TIME. CALL LIGHT IN REACH. WILL CTM.
--- NOTE | 2018-11-25 19:32 | NUR ---
FIRST UNIT OF PRBCs STARTED TO PIV LEFT FA. NO S/S OF AN ADVERSE REACTION NOTED WILL CTM.
[2018-11-25 20:00] VITALS: BP 165/81
[2018-11-25 22:30] VITALS: BP 156/90
--- NOTE | 2018-11-25 22:47 | NUR ---
FIRST UNIT OF PRBCs COMPLETED. NO S/S OF AN ADVERSE REACTION NOTED.
--- NOTE | 2018-11-25 22:50 | NUR ---
SECOND UNIT OF PRBCs STARTED TO PIV LEFT FA. NO S/S OF AN ADVERSE REACTION NOTED. WILL CTM.
[2018-11-26 00:21] VITALS: BP 165/81
--- NOTE | 2018-11-26 02:30 | NUR ---
SECOND UNIT OF PRBC FINSIHED. PT TOLERATED WELL. NO S/S OF AN ADVERSE REACTION NOTED. VITALS REMAIN WNL. NO NEEDS EXPRESSED. NO S/S OF DISTRESS NOTED. WILL CTM.
[2018-11-26 03:38] LABS: HEMATOCRIT 28.1 % (36.0-48.0); HEMOGLOBIN 9.3 g/dL (12-16)
[2018-11-26 04:00] VITALS: BP 158/72
[2018-11-26 04:09] LABS: ALBUMIN 3.3 g/dL (3.4-5.0); ANION GAP 17.7 mmol/L (8-16); BILIRUBIN - TOTAL 0.32 mg/dL (0.2-1.3); CALCIUM 8.1 mg/dL (8.5-10.1); CARBON DIOXIDE 18.3 mmol/L (21.0-32.0); CREATININE - SERUM 3.2 mg/dL (0.6-1.3); PROTEIN - SERUM 7.7 g/dL (6.4-8.2)
--- NOTE | 2018-11-26 07:00 | NUR ---
RECEIVED REPORT. ASSUMED CARE OF PATIENT. PATIENT RESTING IN BED WITH EYES OPEN. RESP EVEN AND UNLABORED. NO DISTRESS.
[2018-11-26 08:00] VITALS: BP 154/67
[2018-11-26 11:05] LABS: HEMATOCRIT 28.6 % (36.0-48.0); HEMOGLOBIN 9.5 g/dL (12-16)
[2018-11-26 12:04] VITALS: BP 149/67
--- NOTE | 2018-11-26 13:36 | NUR ---
HERE FOR ROUNDS, REQUESTED AND RECEIVED ORDER FOR ZOFRAN FOR NAUSEA.
--- NOTE | 2018-11-26 13:54 | NUR ---
waiting for pharmacy to bring sodium bicarb to unit.
[2018-11-26 14:14] VITALS: Ht 167.6 cm; Wt 62.4 kg
[2018-11-26 15:07] VITALS: BP 139/62
--- NOTE | 2018-11-26 15:07 | NUR ---
IV FLUIDS INFUSING ORDERED AT THIS TIME. PATIENT RESTING IN BED, ATTENTION TOWARD TELEVISION. NO DISTRESS. CALL LIGHT WITHIN REACH.
[2018-11-26 18:22] LABS: HEMATOCRIT 27.6 % (36.0-48.0); HEMOGLOBIN 9.2 g/dL (12-16)
--- NOTE | 2018-11-26 19:34 | NUR ---
PT CARE ASSUMED. BEDSIDE SHIFT REPORT COMPLETE. PT IN BED RR EVEN AND UNLABORED ON 2L NC. NO S/S OF DISTRESS NOTED AT THIS TIME. PT DENIES NEEDS. CALL LIGHT IN REACH. WILL CPOC.
[2018-11-26 20:00] VITALS: BP 136/66
[2018-11-27] VITALS: BP 135/68
[2018-11-27 02:59] LABS: HEMOGLOBIN 8.9 g/dL (12-16)
[2018-11-27 03:18] LABS: ALBUMIN 3.1 g/dL (3.4-5.0); ANION GAP 17.2 mmol/L (8-16); BILIRUBIN - TOTAL 0.29 mg/dL (0.2-1.3); CALCIUM 8.1 mg/dL (8.5-10.1); CARBON DIOXIDE 18.7 mmol/L (21.0-32.0); CREATININE - SERUM 3.1 mg/dL (0.6-1.3); POTASSIUM - SERUM 3.9 mmol/L (3.5-5.1); PROTEIN - SERUM 7.4 g/dL (6.4-8.2)
[2018-11-27 04:00] VITALS: BP 163/74
--- NOTE | 2018-11-27 05:45 | NUR ---
FRESH BLOOD PRESENT AROUND PIV SITE TO LEFT FA. PIV D/C WITH CATHETER TIP INTACT. PIV RESITED TO RIGHT FA. PT TOLERATED WELL. LR INFUSING AT 75ML/HR PER ORDER. WILL CTM.
--- NOTE | 2018-11-27 06:50 | NUR ---
PATIENT IS STABLE AND VSS. PATIENT TO SURGERY VIA HOSPITAL BED AND SURGERY PERSONNEL FOR BRONCHOSCOPY.
--- NOTE | 2018-11-27 07:10 | NUR ---
PATIENT LAYING IN BED ON LEFT SIDE WITH EYES CLOSED AND BREATHING EVENLY. WILL CONTINUE WITH PLAN OF CARE. SR UP X 2 BED IN LOW POSITION AND CALL LIGHT IN REACH.
[2018-11-27 09:51] VITALS: BP 117/78
[2018-11-27 10:12] LABS: HEMATOCRIT 27.6 % (36.0-48.0); HEMOGLOBIN 9.1 g/dL (12-16)
--- NOTE | 2018-11-27 11:19 | MORECARE ---
CASE MANAGEMENT DISCHARGE SUMMARY PATIENT: ISRAEL CHAUDHARI UNIT: [id number] ADM DATE: 11/25/18 AGE: 68 : 49 SEX: F ROOM/BED: D.2104 AUTHOR: MAK PALENCIA PHYSICIAN: REFERRING PHYSICIAN: SELIN LUND MD DATE OF SERVICE: 11/27/18 Discharge Plan Patient Name: ISRAEL CHAUDHARI [facility] : 1950 Planned Disposition: Home Anticipated Discharge Date: Discharge Date: Expected LOS: Initial Reviewer: [email or web address] Initial Review Date: 11/27/2018 Generated: 11/27/18 12:18 pm DCPIA - Discharge Planning Initial Assessment Updated by [email or web address]: Aby Dos Santos on 11/27/18 11:17 am * Is the patient Alert and Oriented? Yes * PCP ASHELY * Pharmacy [facility] * Preadmission Environment Home with Family * ADLs Independent * Equipment Nebulizer Oxygen Walker * List name and contact numbers for known caregivers / representatives who currently or will assist patient after discharge: * Community resources currently utilized None * Additional services required to return to the preadmission environment? No * Can the patient safely return to the preadmission environment? Yes * Has this patient been hospitalized within the prior 30 days at any hospital? No Patient Name: ISRAEL CHAUDHARI Page 13473 at 1119 All edits/amendments must be made on the electronic document DICTATION DATE: 11/27/181117 COMMERCIAL LOAN REVIEWER: AUTUMN 11/27/18 1118 RPT#: [id number] DC DATE: STATUS: ADM IN [facility] [address] [place] [address] END OF REPORT
--- NOTE | 2018-11-27 11:24 | NUR ---
PATIENT HAVING BRONCHOSCOPY THIS MORNING. PREPARED PATIENT BY GIVING PATIENT 3ML ALBUTEROL AND 5ML OF LIDOCAINE. SPAO2 97% HR 105. PATIENT ON 2.5L OXYGEN. PATIENT START TO HAVE A APANIC ATTACK BUT WAS ABLE TO EASE PATIENT.
--- NOTE | 2018-11-27 11:26 | MORECARE ---
CASE MANAGEMENT DISCHARGE SUMMARY PATIENT: ISRAEL CHAUDHARI UNIT: [id number] ADM DATE: 11/25/18 AGE: 68 : 49 SEX: F ROOM/BED: D.8791 AUTHOR: MAK PALENCIA PHYSICIAN: REFERRING PHYSICIAN: SELIN LUND MD DATE OF SERVICE: 11/27/18 Discharge Plan Patient Name: ISRAEL CHAUDHARI Facility: [facility]:[place] : 1950 Planned Disposition: Home Anticipated Discharge Date: Discharge Date: Expected LOS: Initial Reviewer: [email or web address] Initial Review Date: 11/27/2018 Generated: 11/27/18 12:26 pm Comments DCP- Discharge Planning Updated by [email or web address]: Aby Dos Santos on 11/27/18 10:[address] Patient Name: ISRAEL CHAUDHARI Admission Status: Urgent Accout number: [id number] Admission Date: 11-25-2018 : 1950 Admission Diagnosis: Attending: SELIN LUND Current LOS: 2 Anticipated DC Date: Planned Disposition: Home Primary Insurance: [facility] [employer] [employer] Discharge Planning Comments: CM MET WITH PATIENT ABOUT DC PLANNING/NEEDS. STATES O2 AND NEBS AT HOME. DENIES NEED FOR REHAB, HH, OR OTHER SERVICES AT TIME OF DC. PLANS TO DC HOME WITH . Pyrotechnic Assembler: Aby Dos Santos DCPIA - Discharge Planning Initial Assessment Updated by [email or web address]: Aby Dos Santos on 11/27/18 11:17 am * Is the patient Alert and Oriented? Yes * PCP ASHELY * Pharmacy [facility] * Preadmission Environment Home with Family * ADLs Independent * Equipment Nebulizer Oxygen Walker * List name and contact numbers for known caregivers / representatives who currently or will assist patient after discharge: * Community resources currently utilized None * Additional services required to return to the preadmission environment? No * Can the patient safely return to the preadmission environment? Yes * Has this patient been hospitalized within the prior 30 days at any hospital? No Last DP export: 11/27/18 10:19 a Patient Name: ISRAEL CHAUDHARI Page 58541 at 1126 All edits/amendments must be made on the electronic document DICTATION DATE: 11/27/181124 NATIONAL SERVICE OFFICER: AUTUMN 11/27/18 112 RPT#: [id number] [place] DATE: STATUS: ADM IN [facility] [address] [place] [address] END OF REPORT
[2018-11-27 12:56] VITALS: BP 170/76
--- NOTE | 2018-11-27 15:14 | NUR ---
PATIENT IS STABLE AND VSS. PHONE CALL RECIEVED TO PRE OP PATIENT FROM GI LAB TEAM. PATIENT TO GI LAB VIA HOSPITAL BED AND GI LAB PERSONNEL.
--- NOTE | 2018-11-27 17:38 | NUR ---
1734 PROCEDURE COMPLETED WITHOUT PROBLEMS 140/69 98 12 100% SAT ON 10 L MASK
--- NOTE | 2018-11-27 17:42 | NUR ---
1742 O2 6L NC 143/88 98 24 98% SAT
--- NOTE | 2018-11-27 17:44 | NUR ---
1744 O2 DOWN TO 4L NC 97% SAT
--- NOTE | 2018-11-27 17:51 | NUR ---
1750 169/83 92 24 96 3L NC VERBALLY RESPONSIVE.
--- NOTE | 2018-11-27 17:57 | NUR ---
1758 181/69 98 98 24 O2 3L NC REPORT TO NURSE TO 7502
--- NOTE | 2018-11-27 18:15 | NUR ---
PATIENT RETURNED FROM [facility]. PATIENT IS STABLE AND VSS. WILL CONTINUE TO MONITOR. SR UP X 2 BED IN LOW POSITION AND CALL LIGHT IN REACH.
[2018-11-27 18:48] LABS: HEMATOCRIT 28.6 % (36.0-48.0); HEMOGLOBIN 9.3 g/dL (12-16)
[2018-11-27 20:00] VITALS: BP 150/60
[2018-11-28] VITALS: BP 125/54
[2018-11-28 04:00] VITALS: BP 142/60
[2018-11-28 06:56] LABS: BASOPHILS 0.4 % (0-2); EOSINOPHILS 1.8 % (0-7); HEMATOCRIT 27.5 % (36.0-48.0); HEMOGLOBIN 8.9 g/dL (12-16); IMMATURE GRANULOCYTES 0.2 % (0-5); LYMPHOCYTES 27.3 % (15-50); MCH 28.3 pg (26.0-34.0); MCHC 32.4 g/dL (31.0-37.0); MCV 87.6 fL (80.0-100.0); MEAN PLATELET VOLUME 9.4 fL (7.4-10.4); MONOCYTES 11.4 % (2-11); NEUTROPHILS 58.9 % (40-80); PLATELET COUNT 189 10x3/uL (130-400); RBC 3.14 10x6/uL (4.00-5.40); WBC 5.4 10x3/uL (4.8-10.8)
--- NOTE | 2018-11-28 07:10 | NUR ---
REPORT RECEIVED FROM SMOCKER AND PATIENT CARE ASSUMED. PATIENT LAYING IN BED ON BACK AWAKE, ALERT AND ORIENTED. PATIENT DENIES ANY NEEDS OR PAIN. WILL CONTINUE WITH PLAN OF CARE. SR UP X 2 BED IN LOW POSITION AND CALL LIGHT IN REACH.
[2018-11-28 07:32] LABS: ALBUMIN 3.1 g/dL (3.4-5.0); ANION GAP 15.5 mmol/L (8-16); BILIRUBIN - TOTAL 0.35 mg/dL (0.2-1.3); CALCIUM 8.6 mg/dL (8.5-10.1); CARBON DIOXIDE 21.7 mmol/L (21.0-32.0); CREATININE - SERUM 2.8 mg/dL (0.6-1.3); POTASSIUM - SERUM 4.2 mmol/L (3.5-5.1); PROTEIN - SERUM 7.1 g/dL (6.4-8.2)
[2018-11-28 08:00] VITALS: BP 178/78
[2018-11-28 12:00] VITALS: BP 168/76
--- NOTE | 2018-11-28 13:40 | NUR ---
Nutrition Follow-up: Pt continues to report poor appetite. Lactulose stopped. Loose BM this AM. Reports that she experiences nausea after eating and had an episode of vomiting this AM. Noted EGD revealed no active bleeding. Agreed to try Nepro. Diet: Renal No wt Labs reviewed Meds noted: LR @ 75, Lasix, Remeron Continue current diet as tolerated. Will provide Nepro with dinner tonight as trial. No wt on record; rec weigh pt. RD following.
[2018-11-28 16:00] VITALS: BP 186/99
--- NOTE | 2018-11-28 17:54 | NUR ---
PATIENT LAYING IN BED EAtING SUPPER. PATIENT IS STABLE AND VSS. PATIENT DENIES ANY NEEDS OR PAIN. WILL CONTINUE TO MONITOR. AT BS. SR UP X 2 BED IN LOW POSTION AND CALL LIGHT IN REACH.
--- NOTE | 2018-11-28 19:38 | NUR ---
PT CARE ASSUMED. BEDSIDE SHIFT REPORT COMPLETE. PT UP IN BED RR EVEN AND UNLABORED ON 2L NC. NO S/S OF DISTRESS NOTED AT THIS TIME. LR INFUSING AT 75 TO R FA. PT DENIES NEEDS AT THIS TIME. CALL LIGHT IN REACH. WILL CTM.
[2018-11-28 20:00] VITALS: BP 164/82
[2018-11-29] VITALS: BP 159/61
[2018-11-29 04:30] VITALS: BP 149/74
[2018-11-29 06:40] LABS: ALBUMIN 3.1 g/dL (3.4-5.0); ANION GAP 15.4 mmol/L (8-16); BILIRUBIN - TOTAL 0.25 mg/dL (0.2-1.3); CALCIUM 8.8 mg/dL (8.5-10.1); CREATININE - SERUM 3.1 mg/dL (0.6-1.3); POTASSIUM - SERUM 4.4 mmol/L (3.5-5.1); PROTEIN - SERUM 7.1 g/dL (6.4-8.2)
[2018-11-29 06:53] LABS: BASOPHILS 0 % (0-2); EOSINOPHILS 0 % (0-7); HEMATOCRIT 26.5 % (36.0-48.0); HEMOGLOBIN 8.4 g/dL (12-16); IMMATURE GRANULOCYTES 0.2 % (0-5); LYMPHOCYTES 20.2 % (15-50); MCH 28.7 pg (26.0-34.0); MCHC 31.7 g/dL (31.0-37.0); MCV 90.4 fL (80.0-100.0); MEAN PLATELET VOLUME 9.5 fL (7.4-10.4); MONOCYTES 13.4 % (2-11); NEUTROPHILS 66.2 % (40-80); PLATELET COUNT 194 10x3/uL (130-400); RBC 2.93 10x6/uL (4.00-5.40); RDW 17.5 % (11.5-14.5); WBC 5.1 10x3/uL (4.8-10.8)
--- NOTE | 2018-11-29 07:10 | NUR ---
REPORT RECEIVED FROM EQUIPMENT INSTALLER AND PATIENT CARE ASSUMED. PATIENT IS AWAKE, ALERT AND ORIENTED X 4. PATIENT IS STABLE AND VSS. PATIENT DENIES ANY NEEDS OR PAIN. WILL CONTINUE WITH PLAN OF CARE. SR UP X 2 BED IN LOW POSITION AND CALL LIGHT IN REACH.
[2018-11-29 08:20] VITALS: BP 167/73
[2018-11-29 08:40] LABS: PLATELET ESTIMATE DECREASED
--- NOTE | 2018-11-29 10:42 | NUR ---
PATIENT SITTING UP IN BED WATCHING TV. PATIENT IS STABLE . WILL CONTINUE TO MONITOR. SR UP X 2 BED IN LOW POSITION AND CALL LIGHT IN REACH.
[2018-11-29 12:13] VITALS: BP 163/86
--- NOTE | 2018-11-29 12:14 | NUR ---
DR CREWS IN ROOM. NEW ORDER RECEVIED FOR INPATIENT REHAB PRE-SCREENING.
--- NOTE | 2018-11-29 13:45 | NUR ---
PATIENT IS TEARFUL AND WRINGING HANDS. PATIENT STATES THAT SHE UNDERSTANDS ABOUT INPATIENT REHAB AND BENEFITS BUT SHE WAS REALLY LLOKING FORWARD TO GOING HOME. ALSO, HER FRIEND WAS IN ROOM EARLIER TODAY TERRI CREWS WAS PRESENT AND PATIENT STATES THAT SHE WAS EMBARESSED HOW FRIEND WAS DRESSED AND WAS ACTING. SPENT SEVERAL MINUTES WITH PATIENT LISTENING TO HER CONCERNS AND GIVING REASSURANCE. PATIENT WAS MEDICATED PER MAR WITH ATIVAN. PATIENT IS RESTING IN BED AND APPEARS MORE CALM AND IS NOT TEARFUL. WILL CONTINUE TO MONITOR. SR UP X 2 BED IN LOW POSITION AND CALL LIGHT IN REACH.
--- NOTE | 2018-11-29 13:48 | NUR ---
Rehab Note- Acute Inpatient prescreen order received. THe patient has [facility] and will require a PreAuth prior to an acute inpatient rehab stay. Spoke with JOANIE Rivera to get OT Eval ordered for PreAuth process. Will begin PreAuth process. Thank you for this referral! Carmen Bermudez RN CLinical Liaison, [facility] Rehab
--- NOTE | 2018-11-29 15:46 | NUR ---
CALLED TO PATIENTS ROOM. PATIENT STATES SHE DOES NOT WANT TO GO TO INPATIENT REHAB. INFORMED WARP PICKER ISMAEL.
[2018-11-29 16:08] LABS: ACID FAST SMEAR Negative (()); AFB SPECIMEN PROCESSING Concentration (())
[2018-11-29 16:08] LABS: ACID FAST SMEAR Negative (()); AFB SPECIMEN PROCESSING Concentration (())
[2018-11-29 16:14] VITALS: BP 165/76
--- NOTE | 2018-11-29 16:17 | MORECARE ---
CASE MANAGEMENT DISCHARGE SUMMARY PATIENT: ISRAEL CHAUDHARI UNIT: [id number] ADM DATE: 11/25/18 AGE: 68 : 49 SEX: F ROOM/BED: D.1281 AUTHOR: MAK PALENCIA PHYSICIAN: REFERRING PHYSICIAN: SELIN LUND MD DATE OF SERVICE: 11/29/18 Discharge Plan Patient Name: ISRAEL CHAUDHARI Facility: [facility]:[place] : 1950 Planned Disposition: Home Anticipated Discharge Date: Discharge Date: Expected LOS: Initial Reviewer: [email or web address] Initial Review Date: 11/27/2018 Generated: 11/29/18 5:17 pm Comments DCP- Discharge Planning Updated by [email or web address]: Aby Dos Santos on 11/29/18 3:[address] Patient Name: ISRAEL CHAUDHARI Admission Status: Urgent Accout number: [id number] Admission Date: 11-25-2018 : 1950 Admission Diagnosis:GASTROINTESTINAL HEMORRHAGE, UNSPECIFIED Attending: SELIN LUND Current LOS: 4 Anticipated DC Date: Planned Disposition: Home Primary Insurance: [facility] MEDICARE SOLUTIONS Discharge Planning Comments: CM MET WITH PATIENT AND SHE DOES NOT WANT IPRH OR HH. STATES HAS EQUIPMENT AT HOME AND IS THERE WITH HER AND HELPS IF SHE NEEDS IT. WANTS TO GO HOME TODAY. CM WILL FOLLOW AND ASSIST. Director Of District Office: Aby Dos Santos DCP- Discharge Planning Updated by [id number]: Aby Dos Santos on 11/27/18 10:[address] Patient Name: ISRAEL CHAUDHARI Admission Status: Urgent Accout number: [id number] Admission Date: 11-25-2018 : 1950 Admission Diagnosis: Attending: SELIN LUND Current LOS: 2 Anticipated DC Date: Planned Disposition: Home Primary Insurance: [facility] MEDICARE SOLUTIONS Discharge Planning Comments: CM MET WITH PATIENT ABOUT DC PLANNING/NEEDS. STATES O2 AND NEBS AT HOME. DENIES NEED FOR REHAB, HH, OR OTHER SERVICES AT TIME OF DC. PLANS TO DC HOME WITH . Director Of District Office: Aby Dos Santos DCPIA - Discharge Planning Initial Assessment Updated by [id number]: Aby Dos Santos on 11/27/18 11:17 am * Is the patient Alert and Oriented? Yes * PCP ASHELY * Pharmacy [facility] * Preadmission Environment Home with Family * ADLs Independent * Equipment Nebulizer Oxygen Walker * List name and contact numbers for known caregivers / representatives who currently or will assist patient after discharge: * Community resources currently utilized None * Additional services required to return to the preadmission environment? No * Can the patient safely return to the preadmission environment? Yes * Has this patient been hospitalized within the prior 30 days at any hospital? No Coverage Notice Reviewer: [email or web address] Queenie Dos Santos Notice Issued Date-Time: 11/29/2018 16:14 Notice Type: IM Discharge Notice Notice Delivered To: Patient Relationship to Patient: It Risk Advisor Name: Delivery Method: HAND - Hand Delivered Soumya Days: Prior Verbal Notification: Recipient Understood Notice: Yes Recipient Signature: Yes Med Rec Note Co-signed by Attending: Coverage Notice Comment: Last DP export: 11/27/18 10:26 a Patient Name: ISRAEL CHAUDHARI Page [phone] at 1617 All edits/amendments must be made on the electronic document DICTATION DATE: 11/29/18 1617 SURGICAL MANAGER: AUTUMN 11/29/18 1617 RPT#: [id number] DC DATE: STATUS: ADM IN [facility] [address] [place] [address] END OF REPORT
[2018-11-29] MEDS ORDERED: PREDNISONE20 MG PO (16:59)
--- NOTE | 2018-12-02 08:37 | MORECARE ---
CASE MANAGEMENT DISCHARGE SUMMARY PATIENT: ISRAEL CHAUDHARI UNIT: [id number] ADM DATE: 11/25/18 AGE: 68 : 49 SEX: F ROOM/BED: D.9789 AUTHOR: MAK PALENCIA PHYSICIAN: REFERRING PHYSICIAN: SELIN LUND MD DATE OF SERVICE: 12/02/18 Discharge Plan Patient Name: ISRAEL CHAUDHARI Facility: [facility]:[place] : 1950 Planned Disposition: Home Anticipated Discharge Date: 11/29/18 Discharge Date: 11/29/2018 Expected LOS: 4 Initial Reviewer: [id number] Initial Review Date: 11/27/2018 Generated: 12/02/18 9:37 am Comments DCP- Discharge Planning Updated by [email or web address]: Aby Dos Santos on 11/29/18 3:[address] Patient Name: ISRAEL CHAUDHARI Admission Status: Urgent Accout number: [id number] Admission Date: 11-25-2018 : 1950 Admission Diagnosis:GASTROINTESTINAL HEMORRHAGE, UNSPECIFIED Attending: SELIN LUND Current LOS: 4 Anticipated DC Date: Planned Disposition: Home Primary Insurance: [facility] MEDICARE SOLUTIONS Discharge Planning Comments: CM MET WITH PATIENT AND SHE DOES NOT WANT IPRH OR HH. STATES HAS EQUIPMENT AT HOME AND IS THERE WITH HER AND HELPS IF SHE NEEDS IT. WANTS TO GO HOME TODAY. CM WILL FOLLOW AND ASSIST. Cable Maintainer: Aby Dos Santos DCP- Discharge Planning Updated by [id number]: Aby Dos Santos on 11/27/18 10:[address] Patient Name: ISRAEL CHAUDHARI Admission Status: Urgent Accout number: [id number] Admission Date: 11-25-2018 : 1950 Admission Diagnosis: Attending: SELIN LUND Current LOS: 2 Anticipated DC Date: Planned Disposition: Home Primary Insurance: [facility] MEDICARE SOLUTIONS Discharge Planning Comments: CM MET WITH PATIENT ABOUT DC PLANNING/NEEDS. STATES O2 AND NEBS AT HOME. DENIES NEED FOR REHAB, HH, OR OTHER SERVICES AT TIME OF DC. PLANS TO DC HOME WITH . Cable Maintainer: Aby Dos Santos DCPIA - Discharge Planning Initial Assessment Updated by [email or web address]: Aby Dos Santos on 11/27/18 11:17 am * Is the patient Alert and Oriented? Yes * PCP ASHELY * Pharmacy [facility] * Preadmission Environment Home with Family * ADLs Independent * Equipment Nebulizer Oxygen Walker * List name and contact numbers for known caregivers / representatives who currently or will assist patient after discharge: * Community resources currently utilized None * Additional services required to return to the preadmission environment? No * Can the patient safely return to the preadmission environment? Yes * Has this patient been hospitalized within the prior 30 days at any hospital? No Coverage Notice Reviewer: [email or web address] Queenie Dos Santos Notice Issued Date-Time: 11/29/2018 16:14 Notice Type: IM Discharge Notice Notice Delivered To: Patient Relationship to Patient: Income Tax Return Preparer Name: Delivery Method: HAND - Hand Delivered Soumya Days: Prior Verbal Notification: Recipient Understood Notice: Yes Recipient Signature: Yes Med Rec Note Co-signed by Attending: Coverage Notice Comment: Last DP export: 11/29/18 3:17 p Patient Name: ISRAEL CHAUDHARI Page 85875 at 0837 All edits/amendments must be made on the electronic document DICTATION DATE: 12/02/18 0837 VOCATIONAL NURSE: AUTUMN 12/02/18 0837 RPT#: [id number] DC DATE:11/29/18 STATUS: DIS IN [facility] [address] [place] [address] END OF REPORT
== END 2018-11-29 18:38 | disposition home or self-care (01) | DRG 377 ==
LOC: D.M2 17:11
PROVIDERS: Internal Medicine Gastroenterology; Internal Medicine Pulmonary Disease; ADMIT Family Medicine; ATTEND Family Medicine
PROC: 0B9J8ZX Drainage of Left Lower Lung Lobe, Via Natural or Artificial Opening Endoscopic, Diagnostic (ICD-10-PCS; 2018-11-27)
PROC: 0B9F8ZX Drainage of Right Lower Lung Lobe, Via Natural or Artificial Opening Endoscopic, Diagnostic (ICD-10-PCS; 2018-11-27)
PROC: 0DJ08ZZ Inspection of Upper Intestinal Tract, Via Natural or Artificial Opening Endoscopic (ICD-10-PCS; principal; 2018-11-27 15:21)
DX: K29.71 Gastritis, unspecified, with bleeding (principal); I85.11 Secondary esophageal varices with bleeding; J44.0 Chronic obstructive pulmonary disease with (acute) lower respiratory infection; J96.11 Chronic respiratory failure with hypoxia; D62 Acute posthemorrhagic anemia; N17.9 Acute kidney failure, unspecified; J20.9 Acute bronchitis, unspecified; I12.9 Hypertensive chronic kidney disease with stage 1 through stage 4 chronic kidney disease, or unspecified chronic kidney disease; N18.3 Chronic kidney disease, stage 3 (moderate); K74.60 Unspecified cirrhosis of liver; B19.20 Unspecified viral hepatitis C without hepatic coma; K21.0 Gastro-esophageal reflux disease with esophagitis; K29.70 Gastritis, unspecified, without bleeding; Z72.0 Tobacco use

== ENCOUNTER 2019-01-21 09:13 | Inpatient (IN) | payer MEDICARE, MEDICAID ==
[~2019-01-21] VITALS: Ht 167.6 cm; Wt 59.1 kg
[~2019-01-21 09:13] MED LIST changes: +PREDNISONE20 MG PO
[2019-01-21] MEDS ORDERED: SINGULAIR10 MG PO (09:21)
[2019-01-21] MEDS ORDERED: DALIRESP500 MCG PO (09:22)
[2019-01-21] MEDS ORDERED: CARAFATE1 G PO (09:22)
[2019-01-21] MEDS ORDERED: DOXEPIN HCL10 MG PO (09:22)
--- NOTE | 2019-01-21 09:32 | NUR ---
URINE SENT WITH GLAZE GRINDER AFTER BLOOD DRAW
[2019-01-21 09:50] LABS: BASOPHILS 0.2 % (0-2); IMMATURE GRANULOCYTES 0.2 % (0-5); LYMPHOCYTES 37.1 % (15-50); MCHC 31.5 g/dL (31.0-37.0); MCV 98.4 fL (80.0-100.0); MEAN PLATELET VOLUME 8.5 fL (7.4-10.4); MONOCYTES 17.5 % (2-11); RDW 19.8 % (11.5-14.5); WBC 5.6 10x3/uL (4.8-10.8)
--- NOTE | 2019-01-21 09:53 | NUR ---
PT REUSED GOWN AT THIS TIME.
[2019-01-21 09:57] LABS: ANION GAP 18.6 mmol/L (8-16); CALCIUM 8.5 mg/dL (8.5-10.1); CARBON DIOXIDE 17.6 mmol/L (21.0-32.0); POTASSIUM - SERUM 4.2 mmol/L (3.5-5.1)
[2019-01-21 10:03] LABS: ALBUMIN 3.1 g/dL (3.4-5.0); BILIRUBIN - TOTAL 0.27 mg/dL (0.2-1.3); PROTEIN - SERUM 7.5 g/dL (6.4-8.2); RBC 1.84 10x6/uL (4.00-5.40)
[2019-01-21 10:04] LABS: HEMATOCRIT 18.1 % (36.0-48.0); HEMOGLOBIN 5.7 g/dL (12-16); PLATELET COUNT 253 10x3/uL (130-400)
[2019-01-21 10:09] LABS: APPEARANCE CLEAR (CLEAR); BILIRUBIN NEGATIVE (NEGATIVE); COLOR YELLOW (YELLOW); GLUCOSE NEGATIVE (NEGATIVE); KETONE NEGATIVE (NEGATIVE); NITRITE NEGATIVE (NEGATIVE); PROTEIN 1+ mg/dL (NEGATIVE); SPECIFIC GRAVITY 1.015 (1.005-1.020); UROBILINOGEN NORMAL (NORMAL)
[2019-01-21 10:10] LABS: BACTERIA FEW /hpf (NEGATIVE); EPITHELIAL CELLS 0-5 /hpf (0-5); MUCUS <1+ /lpf (NONE SEEN); RED CELLS - URINE NONE SEEN /hpf (0-5); WHITE CELLS - URINE NSEEN /hpf (NEGATIVE)
--- NOTE | 2019-01-21 10:57 | MORECARE ---
CASE MANAGEMENT DISCHARGE SUMMARY PATIENT: ISRAEL CHAUDHARI UNIT: [id number] ADM DATE: 01/21/19 AGE: 68 : 49 SEX: F ROOM/BED: D.2102 AUTHOR: MAK PALENCIA PHYSICIAN: REFERRING PHYSICIAN: SELIN LUND MD DATE OF SERVICE: 01/21/19 Discharge Plan Patient Name: ISRAEL CHAUDHARI Facility: [facility]:[place] : 1950 Planned Disposition: Home Anticipated Discharge Date: 01/24/19 Discharge Date: Expected LOS: 3 Initial Reviewer: [id number] Initial Review Date: 01/21/2019 Generated: 01/21/19 11:56 am DCP- Discharge Planning Updated by [id number]: Preeti Hill on 01/21/19 9:[address] DC PLAN: Return home with . ANTICIPATED DC NEEDS: Denied known dc needs at time of initial assessment. CM met with patient and her to complete initial dc planning assessment. CM educated patient on the CM role and verbal consent given by patient to complete assessment. CM verified patient's address, phone number, and emergency contact phone numbers. Patient lives at home with her . She reports he helps her in all areas of her ADL's at times. She has dizziness at times. He stated he quit driving his truck to stay home and take care of her. At discharge patient plans to return home and feels this is a safe discharge. CM discussed availability of home health, rehab services, and medical equipment. Patient and her spouse denied known discharge needs at this time. Transportation provider at discharge will be her . CM will continue to follow and will assist as needed with dc plans/needs. Preeti Hill RN, [facility] DCPIA - Discharge Planning Initial Assessment Updated by [email or web address]: Preeti Hill on 01/21/19 10:52 am * Is the patient Alert and Oriented? Yes * How many steps to enter\exit or inside your home? * PCP Dr. Lund * Pharmacy [place] * Preadmission Environment Home with Family * ADLs Partial Dependent * Partial ADLs (Assistance needed) Ambulation Bathing Dressing Transfers * Equipment Nebulizer Oxygen Rolling Walker Shower Chair * Other Equipment Home O2 with portability. Barbara is DME provider. * List name and contact numbers for known caregivers / representatives who currently or will assist patient after discharge: Chip Chaudhari - [facility] - [phone] * Verbal permission to speak to the caregivers and representatives has been obtained from the patient. Yes * Community resources currently utilized None * Additional services required to return to the preadmission environment? No * Can the patient safely return to the preadmission environment? Yes * Has this patient been hospitalized within the prior 30 days at any hospital? No Patient Name: ISRAEL CHAUDHARI Page [phone] at 1057 All edits/amendments must be made on the electronic document DICTATION DATE: 01/21/191055 PREPARED FOODS PRODUCTION TEAM MEMBER: AUTUMN 01/21/19 105 RPT#: [id number] DC DATE: STATUS: ADM IN [facility] [address] [place] [address] END OF REPORT
[2019-01-21 12:23] LABS: % SATURATION 11 % (15-55); IRON 27 ug/dl (35-150); TOTAL IRON BIND CAPACITY 232 ug/dl (260-445); UNSAT IRON BIND CAPACITY 205 ug/dl (150-375)
--- NOTE | 2019-01-21 12:50 | NUR ---
BLOOD TRANSFUSION STOPPED WHEN PT WENT TO CT
--- NOTE | 2019-01-21 12:51 | NUR ---
RECEIVED PT FROM ER WITH BLOOD INFUSING BY GRAVITY AND BEING HELD IN PATIENTS HAND WHILE IN WHEELCHAIR. PT IS AAO AND UP WITH ASSIST. VSS AND WNL. QUICKSTART, MED REQ, AND HISTORY COMPLETE. NO S/S OF DISTRESS NOTED. PT DENIES ANY NEEDS. WILL CTM.
[2019-01-21 13:44] VITALS: BP 135/62; Ht 167.6 cm; Wt 59.1 kg
[2019-01-21 15:25] VITALS: BP 149/66
--- NOTE | 2019-01-21 15:52 | NUR ---
BEGAN TRANSFUSION OF SECOND UNIT OF BLOOD, PRETRANSFUSION VSS AND WNL. AFTER 5 MINUTES OF INFUSING, PATIENT SITS UP IN BED, AUDIBLY WHEEZING, COMPLAINING OF LOW BACK PAIN, CHILLS, SWEATS, AND NAUSEA. IMMEDIATELY STOPPED INFUSION AND FLUSHED PIV WITH 10ML OF NORMAL SALINE. NOTIFIED EDILSON BOWERS WHO ORDERED ONE TIME DOSE OF LASIX 40MG IV NOW. ADMININSTERED LASIX VIA PIV. NOTIFIED WHO TELEPHONE ORDERED 650MG TYLENOL PREMED AND BENADRYL 50MG PREMED. WAS ORDERED BY TO ADMINISTER PREMEDS, WAIT 15 MINUTES, AND RESTART TRANFUSION. NOTIFIED BLOOD BANK WHO INSTRUCTED ME TO DISCARD THE UNIT OF BLOOD AND PLACE ORDER FOR NEW UNIT. WILL CTM. PT REPORTS OF FEELING MUCH BETTER AFTER TRANFUSION WAS STOPPED. WILL CTM.
--- NOTE | 2019-01-21 18:01 | NUR ---
BEGAN THIRD UNIT OF BLOOD. VSS AND WNL. MONITORED PT FOR 15 MINUTES AND PT REPORTS OF NO S/S OF REACTION. PT DENIES ANY NEEDS AT THIS TIME. WILL CTM.
--- NOTE | 2019-01-21 19:15 | NUR ---
REPORT RECEIVED, WILL CONTINUE POC. PATIENT IS AAOX4, IN HIGH FOWLERS POSITION. NO S/S OF DISTRESS OBSERVED, RR EVEN AND UNLABORED ON 2L O2 VIA NC. PATIENT HAS BLOOD PRODUCTS INFUSING TO RT FOREARM. IV PATENT, DRSG C/D/I. PATIENT DENIES FURTHER NEEDS AT THIS TIME. CL IN REACH, BED LOCKED AND LOWERED. WILL CTM.
[2019-01-21 20:30] VITALS: BP 130/57
[2019-01-21 23:53] LABS: HEMATOCRIT 22.2 % (36.0-48.0); HEMOGLOBIN 7.2 g/dL (12-16)
[2019-01-22] VITALS (11 sets, daily range): BP systolic 114–159; BP diastolic 55–77
--- NOTE | 2019-01-22 00:02 | NUR ---
BERTA WAGGONER APN ABOUT CRITICAL H&H.
--- NOTE | 2019-01-22 01:13 | NUR ---
BERTA WAGGONER APN AGAIN. CALLBACK RECEIVED, ORDER FOR 2 UNITS PRBC'S RECEIVED.
--- NOTE | 2019-01-22 02:47 | NUR ---
TRANSFUSING PRBC'S PER ORDERS. PRE-TRANSFUSION VS: T 98.1 HR 89 RR 16 O2 98% BP 137/55. BLOOD PRODUCTS STARTED AT 0245 BY JOSE MALDONADO.
--- NOTE | 2019-01-22 03:02 | NUR ---
NO S/S OF REACTION. PATIENTS VS T 98.1 HR 90 RR 18 BP 130/62 O2 97% PATIENT DENIES NEEDS AT THIS TIME. CL IN REACH, BED LOCKED AND LOWERED. WILL CTM.
--- NOTE | 2019-01-22 03:15 | NUR ---
I have reviewed this patient and I concur with the Shift Assessment completed by the Licensed Practical Nurse today this shift.
--- NOTE | 2019-01-22 08:05 | NUR ---
PRBC DONE INFUSING NS INFUSING NOW. PT HAS NO S/S OF ALLERGIC REACTION. WILL START SECOND UNIT OF PRBC.
--- NOTE | 2019-01-22 08:30 | NUR ---
THIS NURSE LEV MORRIS RN STARTED SECOND UNIT OF PRBC. ALEXANDRA GARCIA SPIKED AND RAN PRBC AT 100ML/HR. VS STABLE. WILL STAY WITH PT FOR FIRST 15 MIN. TO WATCH FOR ALLERGIC REACTION. PT AWARE OF S/S TO REPORT FOR REACTION.
--- NOTE | 2019-01-22 08:50 | NUR ---
PT STATES "I FEEL FINE." PT SHOWS NO S/S OF ALLERGIC REACTION TO PRBC. VS STABLE. INCREASED PRBC TO 115ML/HR VEIN DID NOT TOLERATE DECREASED BACK DOWN TO 100ML/HR. WILL CONTINUE TO MONITOR.
--- NOTE | 2019-01-22 09:36 | NUR ---
PT HAD A BM IN HAT BUT ALSO URINATED IN HAT. WILL TRY AND GET A NEW SPECIMEN.
--- NOTE | 2019-01-22 09:44 | NUR ---
REFUSED SCD'S. COLLECTED STOOL SPECIMEN AND TKAEN TO LAB.
--- NOTE | 2019-01-22 11:43 | NUR ---
SECOND UNIT OF PRBC DONE INFUSING. NS NOW INFUSING AT 100ML/LR VIA RIGHT FA IV. PT SHOWS NO S/S OF ALLERGIC REACTION. WILL CONTINUE TO MONITOR.
[2019-01-22 12:19] LABS: BASOPHILS 0.2 % (0-2); EOSINOPHILS 2.8 % (0-7); IMMATURE GRANULOCYTES 0.6 % (0-5); LYMPHOCYTES 32.5 % (15-50); MCH 29.7 pg (26.0-34.0); MCHC 31.7 g/dL (31.0-37.0); MEAN PLATELET VOLUME 9.1 fL (7.4-10.4); MONOCYTES 18.3 % (2-11); NEUTROPHILS 45.6 % (40-80); RDW 18.5 % (11.5-14.5); WBC 4.9 10x3/uL (4.8-10.8)
[2019-01-22 12:20] LABS: ALBUMIN 2.9 g/dL (3.4-5.0); ANION GAP 19.6 mmol/L (8-16); BILIRUBIN - TOTAL 0.39 mg/dL (0.2-1.3); CALCIUM 8.3 mg/dL (8.5-10.1); CARBON DIOXIDE 15.5 mmol/L (21.0-32.0); CREATININE - SERUM 3.7 mg/dL (0.6-1.3); POTASSIUM - SERUM 4.1 mmol/L (3.5-5.1); PROTEIN - SERUM 7.1 g/dL (6.4-8.2)
[2019-01-22 12:25] LABS: HEMOGLOBIN 9.2 g/dL (12-16); MCV 93.5 fL (80.0-100.0); PLATELET COUNT 196 10x3/uL (130-400)
--- NOTE | 2019-01-22 15:21 | NUR ---
I have reviewed this patient and I concur with the Shift Assessment completed by the Licensed Practical Nurse today this shift.
--- NOTE | 2019-01-22 18:35 | NUR ---
CONSENTS SIGNED FOR EGD TOMORROW AND NPO AFTER MIDNIGHT SIGN HUNG ON DOOR.
--- NOTE | 2019-01-22 19:21 | NUR ---
REPORT RECEIVED, WILL CONTINUE POC. PATIENT IS AAOX4, UP AD DELVIN, LYING IN SEMI-FOLWERS POSITION. NO S/S OF DISTRESS OBSERVED, RR EVEN AND UNLABORED ON 3L O2 VIA NC. PATIENT DENIES NEEDS AT THIS TIME. CL IN REACH, BED LOCKED AND LOWERED. WILL CTM.
[2019-01-23 00:13] VITALS: BP 139/58
[2019-01-23 04:45] VITALS: BP 157/71
--- NOTE | 2019-01-23 04:51 | NUR ---
PO MEDS WITH HELD THIS AM. PT IS NPO FOR EGD LATER THIS AFTERNOON.
[2019-01-23 05:48] LABS: BASOPHILS 0.4 % (0-2); HEMATOCRIT 28.2 % (36.0-48.0); IMMATURE GRANULOCYTES 0.4 % (0-5); LYMPHOCYTES 33.3 % (15-50); MCH 29.6 pg (26.0-34.0); MCHC 31.9 g/dL (31.0-37.0); MCV 92.8 fL (80.0-100.0); MEAN PLATELET VOLUME 9.2 fL (7.4-10.4); MONOCYTES 17.1 % (2-11); NEUTROPHILS 46.8 % (40-80); PLATELET COUNT 202 10x3/uL (130-400); RBC 3.04 10x6/uL (4.00-5.40); RDW 18.6 % (11.5-14.5); WBC 4.5 10x3/uL (4.8-10.8)
[2019-01-23 06:17] LABS: ANION GAP 14.7 mmol/L (8-16); CALCIUM 8.5 mg/dL (8.5-10.1); CARBON DIOXIDE 21.1 mmol/L (21.0-32.0); CREATININE - SERUM 3.7 mg/dL (0.6-1.3); POTASSIUM - SERUM 3.8 mmol/L (3.5-5.1)
[2019-01-23 09:36] VITALS: BP 143/77
--- NOTE | 2019-01-23 11:58 | NUR ---
PATIENT LAYING ON LEFT SIDE. VISITING WITH FAMILY. OXYGEN NOTED TO BE AT 3LPM. IV TO THE RIGHT FOREARM IS SALINE LOCKED WITH DRESSING CLEAN DRY AND INTACT. EDUCATED PATIENT ON NPO STATUS FOR PROCEDURE TODAY. BED IS IN LOW POSITION AND CALL LIGHT IS IN REACH. PATIENT DENIES ROSE MARIE PAIN OR ADDITIONAL NEEDS AT THIS TIME.
[2019-01-23 13:17] VITALS: BP 153/67
[2019-01-23 17:27] VITALS: BP 160/84
[2019-01-23 19:00] VITALS: BP 142/82
--- NOTE | 2019-01-23 19:01 | NUR ---
REPORT RECEIVED, WILL CONTINUE POC. PATIENT IS AAOX4, UP WITH ASSIST. NO S/S OF DISTRESS OBSERVED, RR EVEN AND UNLABORED ON 3L O2 VIA NC. PT HAS PIV IN RT FA, SL, PATENT, DRSG C/D/I. PATIENT DENIES NEEDS AT THIS TIME. CL IN REACH, BED LOCKED AND LOWERED. WILL CTM.
[2019-01-24] VITALS: BP 154/69
[2019-01-24 04:00] VITALS: BP 155/70
[2019-01-24 04:35] LABS: BASOPHILS 0.4 % (0-2); EOSINOPHILS 1.3 % (0-7); HEMATOCRIT 29.2 % (36.0-48.0); HEMOGLOBIN 9.1 g/dL (12-16); IMMATURE GRANULOCYTES 0.2 % (0-5); LYMPHOCYTES 29.3 % (15-50); MCH 29.4 pg (26.0-34.0); MCHC 31.2 g/dL (31.0-37.0); MCV 94.2 fL (80.0-100.0); MEAN PLATELET VOLUME 9.2 fL (7.4-10.4); MONOCYTES 17.3 % (2-11); NEUTROPHILS 51.5 % (40-80); PLATELET COUNT 194 10x3/uL (130-400); RDW 18.4 % (11.5-14.5); WBC 4.5 10x3/uL (4.8-10.8)
[2019-01-24 04:53] LABS: ANION GAP 16.7 mmol/L (8-16); CALCIUM 8.8 mg/dL (8.5-10.1); CARBON DIOXIDE 19.9 mmol/L (21.0-32.0); CREATININE - SERUM 3.5 mg/dL (0.6-1.3); POTASSIUM - SERUM 3.6 mmol/L (3.5-5.1)
--- NOTE | 2019-01-24 04:55 | NUR ---
I have reviewed this patient and I concur with the Shift Assessment completed by the Licensed Practical Nurse today this shift.
--- NOTE | 2019-01-24 08:00 | NUR ---
ALERT AND ORIENTED X4. ABDOMEN SOFT WITH BOWEL SOUNDS NOTED X4. TELEMETRY INTACT O2 3L N/C. DENEIS ANY ABDOMINAL TENDERNESS ON PALPATION. IV TO RT. F/A WITH NO S/S OF INFECTION OR INFILTRATION. ENCOURAGED TO USE CALL LIGHT FOR ASSIST.
[2019-01-24] MEDS ORDERED: PROTONIX40 MG PO (09:34)
[2019-01-24] MEDS ORDERED: CARAFATE1 G PO (09:34)
[2019-01-24] MEDS ORDERED: FERROUS SULFAT325 MG PO (09:36)
[2019-01-24 09:51] VITALS: BP 177/80
--- NOTE | 2019-01-24 13:00 | NUR ---
NUTRITION F/U TOLERATING LOW NA+ DIET. NOTE POSSIBLE DC. WILL CONTINUE TO PROVIDE CURRENT DIET, MONITOR PO INTAKE. RD FOLLOWING
--- NOTE | 2019-01-24 14:36 | MORECARE ---
CASE MANAGEMENT DISCHARGE SUMMARY PATIENT: ISRAEL CHAUDHARI UNIT: [id number] ADM DATE: 01/21/19 AGE: 68 : 49 SEX: F ROOM/BED: D.8067 AUTHOR: MAK PALENCIA PHYSICIAN: REFERRING PHYSICIAN: SELIN LUND MD DATE OF SERVICE: 01/24/19 Discharge Plan Patient Name: ISRAEL CHAUDHARI Facility: [facility]:[place] : 1950 Planned Disposition: Home Anticipated Discharge Date: 01/24/19 Discharge Date: Expected LOS: 3 Initial Reviewer: [email or web address] Initial Review Date: 01/21/2019 Generated: 01/24/19 3:35 pm Comments DCP- Discharge Planning Updated by [email or web address]: Richie Ojeda on 01/24/19 1:[address] Patient Name: ISRAEL CHAUDHARI Encounter No: [id number] : 1950 Primary Insurance: [facility] MEDICARE SOLUTIONS Anticipated DC Date: 01-24-2019 Planned Disposition: Home DCP follow-up note: CM MET WITH PT IN ROOM TO DISCUSS DISCHARGE NEEDS AND PLANNING. CM DISCUSSED AVAILABILITY OF HOME HEALTH, REHAB SERVICES AND MEDICAL EQUIPMENT. PT DENIES DISCHARGE NEEDS. SPOUSE TO TRANSPORT HOME AT DISCHARGE. IMPORTANT MESSAGE FROM MEDICARE PROVIDED AND EXPLAINED. INSPECTION MACHINE TENDER NURSE NOTIFIED. JAVIER Jeffrey DCP- Discharge Planning Updated by [email or web address]: Preeti Sergio on 01/21/19 9:[address] DC PLAN: Return home with . ANTICIPATED DC NEEDS: Denied known dc needs at time of initial assessment. CM met with patient and her to complete initial dc planning assessment. CM educated patient on the CM role and verbal consent given by patient to complete assessment. CM verified patient's address, phone number, and emergency contact phone numbers. Patient lives at home with her . She reports he helps her in all areas of her ADL's at times. She has dizziness at times. He stated he quit driving his truck to stay home and take care of her. At discharge patient plans to return home and feels this is a safe discharge. CM discussed availability of home health, rehab services, and medical equipment. Patient and her spouse denied known discharge needs at this time. Transportation provider at discharge will be her . CM will continue to follow and will assist as needed with dc plans/needs. Preeti Hill RN, CCM DCPIA - Discharge Planning Initial Assessment Updated by [id number]: Preeti Hill on 01/21/19 10:52 am * Is the patient Alert and Oriented? Yes * How many steps to enter\exit or inside your home? * PCP Dr. Lund * Pharmacy [place] * Preadmission Environment Home with Family * ADLs Partial Dependent * Partial ADLs (Assistance needed) Ambulation Bathing Dressing Transfers * Equipment Nebulizer Oxygen Rolling Walker Shower Chair * Other Equipment Home O2 with portability. Barbara is DME provider. * List name and contact numbers for known caregivers / representatives who currently or will assist patient after discharge: Chip Chaudhari - [facility] - [phone] * Verbal permission to speak to the caregivers and representatives has been obtained from the patient. Yes * Community resources currently utilized None * Additional services required to return to the preadmission environment? No * Can the patient safely return to the preadmission environment? Yes * Has this patient been hospitalized within the prior 30 days at any hospital? No Coverage Notice Reviewer: [id number] Queenie Ojeda Notice Issued Date-Time: 01/24/2019 14:25 Notice Type: IM Discharge Notice Notice Delivered To: Patient Relationship to Patient: Mobile Disc Jockey Name: Delivery Method: HAND - Hand Delivered Soumya Days: Prior Verbal Notification: Recipient Understood Notice: Yes Recipient Signature: Yes Med Rec Note Co-signed by Attending: Coverage Notice Comment: Last DP export: 01/21/19 9:57 Patient Name: ISRAEL CHUADHARI Page [phone] at 1436 All edits/amendments must be made on the electronic document DICTATION DATE: 01/24/19 143 SWEET PICKLE MAKER: AUTUMN 01/24/19 143 RPT#: [id number] DC DATE: STATUS: ADM IN [facility] [address] [place] [address] END OF REPORT
--- NOTE | 2019-01-24 15:30 | NUR ---
IV DISCONTINUED AND VERBALIZED UNDERSTANDING OF DSICHARGE INSTRUCTIONS. BROUGHT OXYGEN FROM HOME FOR DISCHARGE. STABLE AT TIME OF DEPARTURE AND LEFT UNDER CARE OF FAMILY.
== END 2019-01-24 15:30 | disposition home or self-care (01) | DRG 682 ==
LOC: D.ER 09:13 → D.M2 10:23
PROVIDERS: Family Medicine; Internal Medicine; Internal Medicine Gastroenterology; ADMIT Family Medicine; ATTEND Family Medicine
PROC: 0DJ08ZZ Inspection of Upper Intestinal Tract, Via Natural or Artificial Opening Endoscopic (ICD-10-PCS; principal; 2019-01-23 16:46)
DX: N17.9 Acute kidney failure, unspecified (principal); K76.7 Hepatorenal syndrome; J96.10 Chronic respiratory failure, unspecified whether with hypoxia or hypercapnia; K92.1 Melena; I85.00 Esophageal varices without bleeding; I12.9 Hypertensive chronic kidney disease with stage 1 through stage 4 chronic kidney disease, or unspecified chronic kidney disease; N18.4 Chronic kidney disease, stage 4 (severe); J43.9 Emphysema, unspecified; F41.8 Other specified anxiety disorders; D63.1 Anemia in chronic kidney disease; K70.30 Alcoholic cirrhosis of liver without ascites; K21.0 Gastro-esophageal reflux disease with esophagitis; K29.70 Gastritis, unspecified, without bleeding

== ENCOUNTER 2019-03-04 14:36 | Inpatient (IN) | payer MEDICARE, MEDICAID ==
[~2019-03-04] VITALS: Ht 162.6 cm; Wt 60.3 kg
[~2019-03-04 14:36] MED LIST changes: +DALIRESP500 MCG PO; +DOXEPIN HCL10 MG PO; +SINGULAIR10 MG PO
--- NOTE | 2019-03-04 16:00 | NUR ---
PT ARRIVES TO ROOM VIA WHEELCHAIR ESCORTED BY HOSPITAL STAFF. FAMILY AT BEDSIDE. PT IS AAO X 4. DYSPNEA UPON EXERTION. PT STATES THAT SHE WEARS O2 AT HOME AND NEEDS IT RIGHT NOW. O2 APPLIED VIA NC @ 2.5L PER PT REQUEST. KEV ALARM IN PLACE. PT WITH SLIGHT WEAKNESS UPON AMBULATION. PT DENIES PRESENCE OF PAIN/N/V AT THIS TIME. YELLOW GOWN, YELLOW BRACELET AND NON SKID SOCKS ON PT. INCENTIVE SPIROMETER GIVEN. PT EDUCATED ON USE OF INCENTIVE SPIROMETER. PT VERBALIZES UNDERSTANDING AND GIVES PROPER RETURN DEMONSTRATION. BED IS IN THE LOWEST POSITION. CALL LIGHT AND BEDSIDE TABLE ARE WITHIN REACH. SIDE RAILS X 2. PT DENIES FURTHER NEEDS. WILL CONT TO MONITOR.
[2019-03-04 16:12] VITALS: BP 184/87; BMI 22.8
--- NOTE | 2019-03-04 17:18 | NUR ---
20G TO LEFT AC X 1 ATTEMPT. PT TOLERATED WELL.
--- NOTE | 2019-03-04 18:50 | NUR ---
PREMED GIVING SEE EMAR.
--- NOTE | 2019-03-04 18:53 | NUR ---
UNIT (1) OF PRBC TRANSFUSION INITIATED. VSS. SEE TRANSFUSION CARD. PT RESTING IN BED WITHOUT APPARENT S/S OF DISTRESS NOTED. BED IS IN THE LOWEST POSITION. CALL LIGHT AND BEDSIDE TABLE ARE WITIHN REACH. SIDE RAILS X 2. ALL FALL PRECAUTIONS ARE IN PLACE. WILL STAY IN ROOM TO CLOSELY MONITOR FOR FIRST 15 MINUTES OF TRANSFUSION.
[2019-03-04 19:30] VITALS: BP 156/71
[2019-03-05 00:30] VITALS: BP 152/70
[2019-03-05 05:30] VITALS: BP 142/57
--- NOTE | 2019-03-05 05:37 | NUR ---
1930) REC'D CHGE OF SHIFT WALKING ROUNDS WITH 1ST UNIT PRBC'S INFUSING JERILYN/ WELL WITH NO SIGNS OR SYMPTOMS OF TRANSFUSION REACTION AT PRESENT TIME.SCD'S ON KEV MAT IN PLACE INSTRUCTED IF NEED TO GET UP PLEASE CALL FOR ASSIST VOICES UNDERSTANDING.WILL CONTINUE TO MONITOR FOR ANY CHGES. AND FOLLOW CURRENT PLAN OF CARE.
--- NOTE | 2019-03-05 06:29 | NUR ---
I have reviewed this patient and I concur with the Shift Assessment completed by the Licensed Practical Nurse today this shift.
[2019-03-05 06:51] LABS: ALBUMIN 2.7 g/dL (3.4-5.0); ANION GAP 17.4 mmol/L (8-16); BILIRUBIN - TOTAL 0.2 mg/dL (0.2-1.3); CALCIUM 7.9 mg/dL (8.5-10.1); CARBON DIOXIDE 17.8 mmol/L (21.0-32.0); CREATININE - SERUM 2.8 mg/dL (0.6-1.3); POTASSIUM - SERUM 4.2 mmol/L (3.5-5.1); PROTEIN - SERUM 6.6 g/dL (6.4-8.2)
[2019-03-05 07:04] LABS: BASOPHILS 0.5 % (0-2); EOSINOPHILS 1.9 % (0-7); HEMOGLOBIN 8.3 g/dL (12-16); IMMATURE GRANULOCYTES 0.2 % (0-5); LYMPHOCYTES 39.4 % (15-50); MCH 29.7 pg (26.0-34.0); MCHC 31.9 g/dL (31.0-37.0); MCV 93.2 fL (80.0-100.0); MEAN PLATELET VOLUME 9.1 fL (7.4-10.4); MONOCYTES 14.9 % (2-11); NEUTROPHILS 43.1 % (40-80); PLATELET COUNT 223 10x3/uL (130-400); RBC 2.79 10x6/uL (4.00-5.40); RDW 16.5 % (11.5-14.5); WBC 4.2 10x3/uL (4.8-10.8)
--- NOTE | 2019-03-05 07:42 | NUR ---
PT IS RESTING IN BED WITH EYES CLOSED. RESPIRATIONS ARE EVEN AND UNLABORED. PT IS EASILY AROUSED WITH VERBAL STIMULATION. PT IS AAO X 4 UPON AROUSAL. PT STATES "I AM FEELING MUCH BETTER THIS MORNING". PIV TO LEFT AC IS SL AND FLUSHES WITHOUT DIFFICULTY. PT DENIES PRESENCE OF PAIN/N/V/DYSPNEA AT THIS TIME. PT ON 2.5L VIA NC AND STATES THAT IS THE AMOUNT OF O2 THAT SHE WEAR AT HOME. ALL FALL PRECAUTIONS ARE IN PLACE. BED IS IN THE LOWEST POSITION. CALL LIGHT AND BEDSIDE TABLE ARE WITHIN REACH. SIDE RAILS X 2. WILL CONT TO MONITOR.
[2019-03-05 08:19] VITALS: BP 167/69
[2019-03-05 12:18] VITALS: BP 156/74
--- NOTE | 2019-03-05 14:47 | MORECARE ---
CASE MANAGEMENT DISCHARGE SUMMARY PATIENT: ISRAEL CHAUDHARI UNIT: [id number] ADM DATE: 03/04/19 AGE: 68 : 49 SEX: F ROOM/BED: D.2238 AUTHOR: MAK PALENCIA PHYSICIAN: REFERRING PHYSICIAN: SELIN LUND MD DATE OF SERVICE: 03/05/19 Discharge Plan Patient Name: ISRAEL CHAUDHARI Facility: [facility]:[place] : 1950 Planned Disposition: Home Anticipated Discharge Date: Discharge Date: Expected LOS: Initial Reviewer: [email or web address] Initial Review Date: 03/04/2019 Generated: 03/05/19 3:46 pm Patient Name: ISRAEL CHAUDHARI Page [phone] at 1447 All edits/amendments must be made on the electronic document DICTATION DATE: 03/05/19 144 MANAGER BUSINESS PLANNING: AUTUMN 03/05/19 1446 RPT#: [id number] DC DATE: STATUS: ADM IN [facility] [address] [place] [address] END OF REPORT
--- NOTE | 2019-03-05 14:54 | MORECARE ---
CASE MANAGEMENT DISCHARGE SUMMARY PATIENT: ISRAEL CHAUDHARI UNIT: [id number] ADM DATE: 03/04/19 AGE: 68 : 49 SEX: F ROOM/BED: D.2238 AUTHOR: MAK PALENCIA PHYSICIAN: REFERRING PHYSICIAN: SELIN LUND MD DATE OF SERVICE: 03/05/19 Discharge Plan Patient Name: ISRAEL CHAUDHARI Facility: [facility]:[place] : 1950 Planned Disposition: Home Anticipated Discharge Date: Discharge Date: Expected LOS: Initial Reviewer: [email or web address] Initial Review Date: 03/04/2019 Generated: 03/05/19 3:54 pm DCPIA - Discharge Planning Initial Assessment Updated by [email or web address]: Verena Sky on 03/05/19 2:49 pm * Is the patient Alert and Oriented? Yes * How many steps to enter\exit or inside your home? 5 w/ rail * PCP DR Lund * Pharmacy [facility] * Preadmission Environment Home with Family * ADLs Partial Dependent * Partial ADLs (Assistance needed) Ambulation Bathing Dressing Transfers * Equipment Nebulizer Oxygen Rolling Walker Shower Chair * List name and contact numbers for known caregivers / representatives who currently or will assist patient after discharge: Chip Chaudhari- - [phone] * Verbal permission to speak to the caregivers and representatives has been obtained from the patient. No * Community resources currently utilized None * Please name any agencies selected above. N/A * Additional services required to return to the preadmission environment? Yes * Can the patient safely return to the preadmission environment? Yes * Has this patient been hospitalized within the prior 30 days at any hospital? No Last DP export: 03/05/19 1:47 pm Patient Name: ISRAEL CHAUDHARI Page [id number] at 1454 All edits/amendments must be made on the electronic document DICTATION DATE: 03/05/19 1456 CERTIFIED DETENTION DEPUTY: AUTUMN 03/05/19 1454 RPT#: [id number] DC DATE: STATUS: ADM IN [facility] [address] [place] [address] END OF REPORT
--- NOTE | 2019-03-05 15:08 | MORECARE ---
CASE MANAGEMENT DISCHARGE SUMMARY PATIENT: ISRAEL CHAUDHARI UNIT: [id number] ADM DATE: 03/04/19 AGE: 68 : 49 SEX: F ROOM/BED: D.2238 AUTHOR: SLIMEDOC PHYSICIAN: REFERRING PHYSICIAN: SELIN LUND MD DATE OF SERVICE: 03/05/19 Discharge Plan Patient Name: ISRAEL CHAUDHARI Facility: [facility]:[place] : 1950 Planned Disposition: Home Anticipated Discharge Date: Discharge Date: Expected LOS: Initial Reviewer: [email or web address] Initial Review Date: 03/04/2019 Generated: 03/05/19 4:08 pm Comments DCP- Discharge Planning Updated by [email or web address]: Verena Sky on 03/05/19 2:[address] CM MET W/ THE PATIENT AT THE BEDSIDE. EXPLAINED CM ROLE. RECEIVED PERMISSION TO PROCEED W/ ASSESSMENT. THE PATIENT LIVES AT HOME ALONE. SHE AND HER HAVE . HE LIVES IN A CAMPER CLOSE TO HER HOUSE. HE STILL ASSIST W/ HER CARE. SHE HAD 5 STEPS W/ "RICKETY RAIL" TO ENTER HER HOME. SHE STATES HER ASSIST HER INTO THE HOUSE. SHE IS NOT RECEIVING ANY HOME HEALTH SERVICES AT THIS TIME. SHE DOES NOT FEELS THAT NEEDS THEM DISCUSSED CARE PROVIDERS. [facility] ON AGING REFERRAL MAYBE OF ASSISTANCE. SHE HAS STATIONARY AND PORTABLE OXYGEN UNITS. SHE WAS ON 2.5 LITERS OF OXYGEN PRIOR TO ADMISSION. SHE APPEARS SHORT OF BREATH AT REST NOW. SHE STATES SHE DOES NOT FEEL WELL. SHE ALSO COMPLAINS OF ABDOMINAL PAIN AND DIARRHEA. SHE HAS HAD 5 STOOLS SO FAR TODAY. SHE STATES IT IS BECOMING MORE LIQUID. SHE THINKS THE NURSE IS AWARE. PMD- DR [facility] DME PROVIDER- AERCL SHE HAS OXYGEN, NEBULIZER. ROLLING WALKER AND SHOWER CHAIR FOOD COUNSELOR- CHIP CHAUDHARI- - [phone] CM CONCLUDED ASSESSMENT PATIENT APPEARS UNCOMFORTABLE. HER NURSE WAS SEEING ANOTHER PATIENT. CM ADVISED THE DRYWALL CONTRACTOR WHO SAYS NURSE IS COGNIZANT OF THE DIARRHEA AND SHORTNESS OF BREATH. DCPIA - Discharge Planning Initial Assessment Updated by [id number]: Verena Sky on 03/05/19 2:49 pm * Is the patient Alert and Oriented? Yes * How many steps to enter\\exit or inside your home? 5 w/ rail * PCP DR Lund * Pharmacy [facility] * Preadmission Environment Home with Family * ADLs Partial Dependent * Partial ADLs (Assistance needed) Ambulation Bathing Dressing Transfers * Equipment Nebulizer Oxygen Rolling Walker Shower Chair * List name and contact numbers for known caregivers / representatives who currently or will assist patient after discharge: [facility]- [phone] * Verbal permission to speak to the caregivers and representatives has been obtained from the patient. No * Community resources currently utilized None * Please name any agencies selected above. N/A * Additional services required to return to the preadmission environment? Yes * Can the patient safely return to the preadmission environment? Yes * Has this patient been hospitalized within the prior 30 days at any hospital? No Last DP export: 03/05/19 1:54 pm Patient Name: ISRAEL CHAUDHARI Page [phone] at 1508 All edits/amendments must be made on the electronic document DICTATION DATE: 03/05/19 1508 QUALITY NURSE: AUTUMN 03/05/19 1508 RPT#: [id number] DC DATE: STATUS: ADM IN [facility] [address] [place] [address] END OF REPORT
--- NOTE | 2019-03-05 15:39 | NUR ---
PT WITH MULTIPLE LOOSE BM THIS SHIFT. PT REPORTS ABDOMINAL PAIN WITH NAUSEA. STOOL SAMPLE RECD AND IS WATERY. PT STATES "I DO NOT FEEL GOOD AT ALL".
[2019-03-05 17:03] VITALS: BP 135/60; BP 140/65
--- NOTE | 2019-03-05 17:26 | NUR ---
PT STATES THAT DALIRESP MEDICATION MAKES HER "STOMACH UPSET" AND REPORTS THAT SHE STOPPED TAKING THE MEDICATION AT HOME "BECAUSE IT MAKES MY STOMACH SO UPSET".
[2019-03-05 20:00] VITALS: BP 155/67
[2019-03-06] VITALS: BP 138/57
--- NOTE | 2019-03-06 02:54 | NUR ---
REC'D SITTING ON SIDE OF BED.TALKING ON PHONE DENIES ANY DISCOMFORT AT PRESENT TIME/WILL CONTINUE TO MONITOR FOR ANY CHGES. AND FOLLOW CURRENT PLAN OF CARE.
[2019-03-06 04:00] VITALS: BP 147/59
[2019-03-06 04:55] LABS: BASOPHILS 0.2 % (0-2); EOSINOPHILS 1.5 % (0-7); HEMATOCRIT 26.1 % (36.0-48.0); HEMOGLOBIN 8.4 g/dL (12-16); IMMATURE GRANULOCYTES 0.4 % (0-5); LYMPHOCYTES 27.6 % (15-50); MCH 29.7 pg (26.0-34.0); MCHC 32.2 g/dL (31.0-37.0); MCV 92.2 fL (80.0-100.0); MEAN PLATELET VOLUME 8.9 fL (7.4-10.4); NEUTROPHILS 52.3 % (40-80); PLATELET COUNT 201 10x3/uL (130-400); RBC 2.83 10x6/uL (4.00-5.40); RDW 17.1 % (11.5-14.5); WBC 4.8 10x3/uL (4.8-10.8)
[2019-03-06 05:15] LABS: ALBUMIN 2.8 g/dL (3.4-5.0); ANION GAP 18.3 mmol/L (8-16); BILIRUBIN - TOTAL 0.17 mg/dL (0.2-1.3); CALCIUM 8.2 mg/dL (8.5-10.1); CARBON DIOXIDE 17.8 mmol/L (21.0-32.0); POTASSIUM - SERUM 4.1 mmol/L (3.5-5.1); PROTEIN - SERUM 6.6 g/dL (6.4-8.2)
--- NOTE | 2019-03-06 07:56 | NUR ---
I have reviewed this patient and I concur with the Shift Assessment completed by the Licensed Practical Nurse today this shift.
--- NOTE | 2019-03-06 11:14 | NUR ---
PT ALERT X 4, BREATH SOUNDS CLEAR BILAT, 2.5L O2 PER NC. PT REPORTING CRAMPING TO ABDOMEN, WILL MONITOR. IV TO RIGHT FOREARM, SALINE LOCKED. REDDENED AREA TO LEFT AC, WILL MONITOR. BED LOW, CALL LIGHT IN REACH. NO OTHER NEEDS AT THIS TIME.
[2019-03-06 12:36] VITALS: BP 147/69
[2019-03-06 13:16] VITALS: Ht 162.6 cm; Wt 60.3 kg
--- NOTE | 2019-03-06 14:32 | MORECARE ---
CASE MANAGEMENT DISCHARGE SUMMARY PATIENT: ISRAEL CHAUDHARI UNIT: [id number] ADM DATE: 03/04/19 AGE: 68 : 49 SEX: F ROOM/BED: D.2238 AUTHOR: MAK PALENCIA PHYSICIAN: REFERRING PHYSICIAN: SELIN LUND MD DATE OF SERVICE: 03/06/19 Discharge Plan Patient Name: ISRAEL CHAUDHARI Facility: [facility]:[place] : 1950 Planned Disposition: Home Anticipated Discharge Date: Discharge Date: Expected LOS: Initial Reviewer: [email or web address] Initial Review Date: 03/04/2019 Generated: 03/06/19 3:32 pm Comments DCP- Discharge Planning Updated by [email or web address]: Fidelina Miranda on 03/06/19 1:[address] Patient Name: ISRAEL CHAUDHARI Encounter No: [id number] : 1950 Primary Insurance: [facility] MEDICARE SOLUTIONS Anticipated DC Date: Planned Disposition: Home External Planned Provider: : DCP follow-up note: Patient and family in agreement with discharge plan. No changes to plan. Case management will follow and assist as needed. Fidelina Miranda DCP- Discharge Planning Updated by [id number]: Verena Sky on 03/05/19 2:[address] CM MET W/ THE PATIENT AT THE BEDSIDE. EXPLAINED CM ROLE. RECEIVED PERMISSION TO PROCEED W/ ASSESSMENT. THE PATIENT LIVES AT HOME ALONE. SHE AND HER HAVE . HE LIVES IN A CAMPER CLOSE TO HER HOUSE. HE STILL ASSIST W/ HER CARE. SHE HAD 5 STEPS W/ "RICKETY RAIL" TO ENTER HER HOME. SHE STATES HER ASSIST HER INTO THE HOUSE. SHE IS NOT RECEIVING ANY HOME HEALTH SERVICES AT THIS TIME. SHE DOES NOT FEELS THAT NEEDS THEM DISCUSSED CARE PROVIDERS. [facility] ON AGING REFERRAL MAYBE OF ASSISTANCE. SHE HAS STATIONARY AND PORTABLE OXYGEN UNITS. SHE WAS ON 2.5 LITERS OF OXYGEN PRIOR TO ADMISSION. SHE APPEARS SHORT OF BREATH AT REST NOW. SHE STATES SHE DOES NOT FEEL WELL. SHE ALSO COMPLAINS OF ABDOMINAL PAIN AND DIARRHEA. SHE HAS HAD 5 STOOLS SO FAR TODAY. SHE STATES IT IS BECOMING MORE LIQUID. SHE THINKS THE NURSE IS AWARE. PMD- DR [facility] DME PROVIDER- JOHN SHE HAS OXYGEN, NEBULIZER. ROLLING WALKER AND SHOWER CHAIR GUN MECHANIC- CHPI CHAUDHARI- - [phone] CM CONCLUDED ASSESSMENT PATIENT APPEARS UNCOMFORTABLE. HER NURSE WAS SEEING ANOTHER PATIENT. CM ADVISED THE NET SOFTWARE DEVELOPER WHO SAYS NURSE IS COGNIZANT OF THE DIARRHEA AND SHORTNESS OF BREATH. DCPIA - Discharge Planning Initial Assessment Updated by [email or web address]: Verena Sky on 03/05/19 2:49 pm * Is the patient Alert and Oriented? Yes * How many steps to enter\\exit or inside your home? 5 w/ rail * PCP DR Lund * Pharmacy [facility] * Preadmission Environment Home with Family * ADLs Partial Dependent * Partial ADLs (Assistance needed) Ambulation Bathing Dressing Transfers * Equipment Nebulizer Oxygen Rolling Walker Shower Chair * List name and contact numbers for known caregivers / representatives who currently or will assist patient after discharge: Chip whalen- [phone] * Verbal permission to speak to the caregivers and representatives has been obtained from the patient. No * Community resources currently utilized None * Please name any agencies selected above. N/A * Additional services required to return to the preadmission environment? Yes * Can the patient safely return to the preadmission environment? Yes * Has this patient been hospitalized within the prior 30 days at any hospital? No Last DP export: 03/05/19 2:08 pm Patient Name: ISRAEL CHAUDHARI Page [id number] at 1432 All edits/amendments must be made on the electronic document DICTATION DATE: 03/06/19 1432 DYE WEIGHER HELPER: AUTUMN 03/06/19 1432 RPT#: [id number] DC DATE: STATUS: ADM IN [facility] [address] [facility] [place] [address] END OF REPORT
--- NOTE | 2019-03-06 15:46 | NUR ---
DISCHARGE PAPERWORK SIGNED, ALL QUESTIONS ANSWERED. IV TO RIGHT FOREARM DC'D, TIP INTACT. ESCORTED OUT BY WHEELCHAIR.
--- NOTE | 2019-03-08 09:58 | MORECARE ---
CASE MANAGEMENT DISCHARGE SUMMARY PATIENT: ISRAEL CHAUDHARI UNIT: [id number] ADM DATE: 03/04/19 AGE: 68 : 49 SEX: F ROOM/BED: D.2238 AUTHOR: SLIMEDOC PHYSICIAN: REFERRING PHYSICIAN: SELIN LUND MD DATE OF SERVICE: 03/08/19 Discharge Plan Patient Name: ISRAEL CHAUDHARI Facility: [facility]:[place] : 1950 Planned Disposition: Home Anticipated Discharge Date: Discharge Date: 03/06/2019 Expected LOS: Initial Reviewer: [email or web address] Initial Review Date: 03/04/2019 Generated: 03/08/19 10:57 am DCP- Discharge Planning Updated by [email or web address]: Fidelina Miranda on 03/06/19 1:[address] Patient Name: ISRAEL CHAUDHARI Encounter No: [id number] : 1950 Primary Insurance: [facility] MEDICARE SOLUTIONS Anticipated DC Date: Planned Disposition: Home External Planned Provider: : DCP follow-up note: Patient and family in agreement with discharge plan. No changes to plan. Case management will follow and assist as needed. Fidelina Miranda DCP- Discharge Planning Updated by [email or web address]: Verena Sky on 03/05/19 2:[address] CM MET W/ THE PATIENT AT THE BEDSIDE. EXPLAINED CM ROLE. RECEIVED PERMISSION TO PROCEED W/ ASSESSMENT. THE PATIENT LIVES AT HOME ALONE. SHE AND HER HAVE . HE LIVES IN A CAMPER CLOSE TO HER HOUSE. HE STILL ASSIST W/ HER CARE. SHE HAD 5 STEPS W/ "RICKETY RAIL" TO ENTER HER HOME. SHE STATES HER ASSIST HER INTO THE HOUSE. SHE IS NOT RECEIVING ANY HOME HEALTH SERVICES AT THIS TIME. SHE DOES NOT FEELS THAT NEEDS THEM DISCUSSED CARE PROVIDERS. [facility] ON AGING REFERRAL MAYBE OF ASSISTANCE. SHE HAS STATIONARY AND PORTABLE OXYGEN UNITS. SHE WAS ON 2.5 LITERS OF OXYGEN PRIOR TO ADMISSION. SHE APPEARS SHORT OF BREATH AT REST NOW. SHE STATES SHE DOES NOT FEEL WELL. SHE ALSO COMPLAINS OF ABDOMINAL PAIN AND DIARRHEA. SHE HAS HAD 5 STOOLS SO FAR TODAY. SHE STATES IT IS BECOMING MORE LIQUID. SHE THINKS THE NURSE IS AWARE. PMD- DR [facility]D [facility] DME PROVIDER- JOHN SHE HAS OXYGEN, NEBULIZER. ROLLING WALKER AND SHOWER CHAIR FURNITURE SALES ASSOCIATE- CHIP CHAUDHARI- - [phone] CM CONCLUDED ASSESSMENT PATIENT APPEARS UNCOMFORTABLE. HER NURSE WAS SEEING ANOTHER PATIENT. CM ADVISED THE COATING INSPECTOR WHO SAYS NURSE IS COGNIZANT OF THE DIARRHEA AND SHORTNESS OF BREATH. DCPIA - Discharge Planning Initial Assessment Updated by [id number]: Verena Sky on 03/05/19 2:49 pm * Is the patient Alert and Oriented? Yes * How many steps to enter\\exit or inside your home? 5 w/ rail * PCP DR Lund * Pharmacy [facility] * Preadmission Environment Home with Family * ADLs Partial Dependent * Partial ADLs (Assistance needed) Ambulation Bathing Dressing Transfers * Equipment Nebulizer Oxygen Rolling Walker Shower Chair * List name and contact numbers for known caregivers / representatives who currently or will assist patient after discharge: Chip whalen- [phone] * Verbal permission to speak to the caregivers and representatives has been obtained from the patient. No * Community resources currently utilized None * Please name any agencies selected above. N/A * Additional services required to return to the preadmission environment? Yes * Can the patient safely return to the preadmission environment? Yes * Has this patient been hospitalized within the prior 30 days at any hospital? No Last DP export: 03/06/19 1:32 pm Patient Name: ISRAEL CHAUDHARI Page [phone] at 0958 All edits/amendments must be made on the electronic document DICTATION DATE: 03/08/19956 GATEHOUSE ATTENDANT: AUTUMN 03/08/19956 RPT#: [id number] DC DATE:03/06/19 STATUS: DIS IN [facility] [address] [place] [address] END OF REPORT
== END 2019-03-06 15:46 | disposition home or self-care (01) | DRG 682 ==
LOC: D.MS 14:36
PROVIDERS: Internal Medicine Hematology & Oncology; ADMIT Family Medicine; ATTEND Family Medicine
DX: I12.9 Hypertensive chronic kidney disease with stage 1 through stage 4 chronic kidney disease, or unspecified chronic kidney disease (principal); I50.33 Acute on chronic diastolic (congestive) heart failure; D62 Acute posthemorrhagic anemia; N18.4 Chronic kidney disease, stage 4 (severe); J96.10 Chronic respiratory failure, unspecified whether with hypoxia or hypercapnia; I10 Essential (primary) hypertension; D63.1 Anemia in chronic kidney disease; K74.69 Other cirrhosis of liver; B18.2 Chronic viral hepatitis C; J43.9 Emphysema, unspecified; J42 Unspecified chronic bronchitis

== ENCOUNTER → 2019-03-19 15:30 | Outpatient (CLI) | payer MEDICARE, MEDICAID ==
[2019-03-06 13:16] VITALS: BMI 22.8
== END | disposition home or self-care (01) ==
LOC: D.RT 02-28 10:00
PROVIDERS: ATTEND Internal Medicine Pulmonary Disease
DX: J45.909 Unspecified asthma, uncomplicated (principal)

== ENCOUNTER 2019-03-27 07:18 | Outpatient (CLI) | payer MEDICARE, MEDICAID ==
[~2019-03-27] VITALS: Ht 162.6 cm; Wt 59.1 kg
[2019-03-27 07:45] LABS: BASOPHILS 0.3 % (0-2); EOSINOPHILS 3.2 % (0-7); HEMATOCRIT 25.3 % (36.0-48.0); HEMOGLOBIN 7.9 g/dL (12-16); IMMATURE GRANULOCYTES 0.5 % (0-5); LYMPHOCYTES 42.3 % (15-50); MCH 29.6 pg (26.0-34.0); MCHC 31.2 g/dL (31.0-37.0); MCV 94.8 fL (80.0-100.0); MEAN PLATELET VOLUME 8.7 fL (7.4-10.4); MONOCYTES 11.1 % (2-11); NEUTROPHILS 42.6 % (40-80); PLATELET COUNT 309 10x3/uL (130-400); RBC 2.67 10x6/uL (4.00-5.40); WBC 5.9 10x3/uL (4.8-10.8)
[2019-03-27 07:51] LABS: CALCIUM 8.7 mg/dL (8.5-10.1); CARBON DIOXIDE 19.6 mmol/L (21.0-32.0); CREATININE - SERUM 3.6 mg/dL (0.6-1.3); POTASSIUM - SERUM 4.6 mmol/L (3.5-5.1)
[2019-03-27 07:53] LABS: APTT 35.9 SECONDS (22.8-39.4); INR 1.06 (0.85-1.17); PROTIME 13.8 SECONDS (11.6-15.0)
[2019-03-27] MEDS ORDERED: OMEPRAZOLE20 M1 PO (09:14)
[2019-03-27 09:24] VITALS: Ht 162.6 cm; Wt 59.1 kg
--- NOTE | 2019-03-27 16:45 | NUR ---
1130 TO ROOM AWAKE DENIES PAIN. ON O2. HAS O2 AT HOME AND RESP TX X4/DAY. FREQ VS DONE SITE W/O SWELLING OR BLEEDING. RECIEVED A FULL LIQ TRAY. NO SOB. 1145 DR SOSA CALLED ABOUT LOW HG/HCT. SPOKE WITH LISSET. 1320 DR SOSA PAGED WITH LAB RESULTS.WAITING FOR RETURN CALL 1325 ORDERS GIVEN AND NOTED. CONCENT OBTAINED. 1345 LAB HERE TO DRAW A T AND MATCH. 1505 FIRST UNIT STARTED AND INSTRUCTIONS GIVEN FOR POST OP BONE BX AND BLOOD INFUSION. 1630 BLOOD FINISHED 1645 IV REMOVED AND ASSISTED WITH GETTING DRESSED. PT SOB AND HAS AUDIBLE WHEEZING. ANESTHESIA NOTIFIED AND RESP PAGED FOR TX 1653 RESP HERE TO GIVE TX AND THEN DISCHARGED HOME
== END 2019-03-27 17:10 | disposition home or self-care (01) ==
LOC: D.SP 07:18 → D.CT 10:00 → D.SP 17:10
PROVIDERS: Radiology Vascular & Interventional Radiology; ATTEND Internal Medicine Hematology & Oncology
DX: N18.4 Chronic kidney disease, stage 4 (severe) (principal); D63.8 Anemia in other chronic diseases classified elsewhere; K74.60 Unspecified cirrhosis of liver; I10 Essential (primary) hypertension; J44.9 Chronic obstructive pulmonary disease, unspecified; K21.9 Gastro-esophageal reflux disease without esophagitis; Z72.0 Tobacco use; Z99.81 Dependence on supplemental oxygen

== ENCOUNTER 2019-07-02 12:12 | Outpatient (CLI) | payer MEDICARE, MEDICAID ==
[~2019-07-02] VITALS: Ht 162.6 cm; Wt 59.5 kg
[~2019-07-02 12:12] MED LIST changes: +COREG6.25 MG PO; +HYDRALAZINE HCL50 MG PO; +OMEPRAZOLE20 M1 PO; +SODIUM BICARBO650 MG PO
[2019-07-02 13:26] VITALS: Ht 162.6 cm; Wt 59.5 kg
== END 2019-07-02 16:03 | disposition home or self-care (01) ==
LOC: D.OPS 12:12
PROVIDERS: ATTEND Internal Medicine Hematology & Oncology
DX: D64.9 Anemia, unspecified (principal)

== ENCOUNTER → 2019-08-07 12:56 | Outpatient (CLI) | payer MEDICARE, MEDICAID ==
[~2019-08-07] VITALS: Ht 162.6 cm; Wt 57.7 kg
[2019-08-07 13:38] VITALS: Ht 162.6 cm; Wt 57.7 kg
== END | disposition home or self-care (01) ==
LOC: D.OPS 12:56
PROVIDERS: ATTEND Internal Medicine Hematology & Oncology
DX: D63.8 Anemia in other chronic diseases classified elsewhere (principal)

== ENCOUNTER 2019-10-13 09:39 | Inpatient (IN) | payer MEDICARE, MEDICAID ==
[2019-10-13] VITALS (8 sets, daily range): BP systolic 150–191; BP diastolic 69–84; BMI 21.6
[~2019-10-13] VITALS: Ht 162.6 cm; Wt 57.0 kg
[2019-10-13 10:41] LABS: CALC OSMOLALITY 296 mosm/kg (275-300); CALCIUM 8.9 mg/dL (8.5-10.1); CARBON DIOXIDE 17.2 mmol/L (21.0-32.0); CHLORIDE - SERUM 108 mmol/L (98-107); CREATININE - SERUM 4.9 mg/dL (0.6-1.3); GLUCOSE 131 mg/dL (74-106); SODIUM 140 mmol/L (136-145); UREA NITROGEN 56 mg/dL (7-18); eGFR NON AFRICAN AMERICAN 9 mL/min (90-120)
[2019-10-13 10:50] LABS: ALBUMIN 3.6 g/dL (3.4-5.0); ALKALINE PHOSPHATASE 123 U/L (30-120); ALT (SGPT) 14 U/L (10-68); AMYLASE - SERUM 105 U/L (25-115); BILIRUBIN - TOTAL 0.35 mg/dL (0.2-1.3); LIPASE 447 U/L (73-393); PROTEIN - SERUM 8.4 g/dL (6.4-8.2)
[2019-10-13 10:51] LABS: TROPONIN-I < 0.017 ng/mL (0.000-0.060)
[2019-10-13 10:59] LABS: BASOPHILS 0.4 % (0-2); EOSINOPHILS 1.7 % (0-7); HEMOGLOBIN 9.2 g/dL (12-16); IMMATURE GRANULOCYTES 0.2 % (0-5); MCH 30.5 pg (26.0-34.0); MCHC 31.7 g/dL (31.0-37.0); MONOCYTES 14.7 % (2-11); PLATELET COUNT 223 10x3/uL (130-400); RBC 3.02 10x6/uL (4.00-5.40); RDW 15.9 % (11.5-14.5); WBC 5.2 10x3/uL (4.8-10.8)
[2019-10-13 11:18] LABS: BILIRUBIN NEGATIVE (NEGATIVE); GLUCOSE NEGATIVE (NEGATIVE); KETONE NEGATIVE (NEGATIVE); NITRITE NEGATIVE (NEGATIVE); UROBILINOGEN NORMAL (NORMAL)
[2019-10-13 11:20] LABS: BACTERIA FEW /hpf (NEGATIVE); EPITHELIAL CELLS 0-5 /hpf (0-5); RED CELLS - URINE OCC /hpf (0-5); WHITE CELLS - URINE RARE /hpf (NEGATIVE)
--- NOTE | 2019-10-13 17:00 | NUR ---
REPORT TO JOSE CHAWLA.
--- NOTE | 2019-10-13 18:45 | NUR ---
PATIENT IN BED WITH EYES CLOSED RESTING QUIETLY. IV INTACT. CALL LIGHT WITHIN REACH.
[2019-10-14] VITALS: BP 110/59
--- NOTE | 2019-10-14 03:42 | NUR ---
ALERT AND ORENTED ABLE TO VOICE NEEDS AND WANTS TO STAFF. O2 AT 2.5LETERS VIA N/C IN PLACE. IV TO RIGHT AC INTACT, TELEMTRY IN PLACE. NPO PER ORDERS. NO S/S OF DISTRESS
[2019-10-14 04:00] VITALS: BP 121/50
[2019-10-14 06:00] LABS: BASOPHILS 0.2 % (0-2); EOSINOPHILS 0.9 % (0-7); HEMATOCRIT 25.5 % (36.0-48.0); LYMPHOCYTES 17.8 % (15-50); MCH 30.2 pg (26.0-34.0); MCHC 31.4 g/dL (31.0-37.0); MCV 96.2 fL (80.0-100.0); MEAN PLATELET VOLUME 9.3 fL (7.4-10.4); MONOCYTES 12.3 % (2-11); NEUTROPHILS 68.8 % (40-80); PLATELET COUNT 188 10x3/uL (130-400); RBC 2.65 10x6/uL (4.00-5.40); RDW 15.9 % (11.5-14.5); WBC 5.8 10x3/uL (4.8-10.8)
[2019-10-14 06:30] LABS: ANION GAP 21.9 mmol/L (8-16); CARBON DIOXIDE 15.9 mmol/L (21.0-32.0); CHOL - HDL RATIO 2.6 ratio (2.3-4.1); CREATININE - SERUM 5.2 mg/dL (0.6-1.3); LDL-HDL RATIO 1.3 ratio (1.5-3.5); MAGNESIUM - SERUM 1.8 mg/dL (1.8-2.4); PHOSPHOROUS 5.8 mg/dL (2.5-4.9); POTASSIUM - SERUM 4.8 mmol/L (3.5-5.1)
[2019-10-14 08:00] VITALS: BP 165/78
--- NOTE | 2019-10-14 08:30 | NUR ---
PT LAYING IN BED A&O X4. PIV IN RIGHT AC, PATENT, NO REDNESS OR SWELLING. O2 SAT 97% VIA NC 2.5L. C/O N/V/D X3 DAYS. C/O WEAKNESS IN BILAT LOWER EXTREMITIES. ABD IS TENDER TO TOUCH. BRUISES ON BILAT UPPER EXTREMITIES. SCDS IN PLACE ON BILAT LOWER EXTREMITIES. TELEMETRY IN PLACE, 72 SR. PTS SPOUSE BROUGHT IN ALL HOME MEDS WITH LIST, WENT OVER MEDS AND REC. EDUCATED PT ON CL AND NEEDS, VERBALIZED UNDERSTANDING. BED LOW, RAILS X2. CL IN REACH.
--- NOTE | 2019-10-14 09:45 | NUR ---
PT C/O OF PAIN ON IV SITE, REDNESS AND SWELLING, D/C IV IN R AC. PIV INSERTED IN RIGHT FOREARM, 2 ATTEMPTS, GOOD RETURN, FLUSHED WELL, PATENT AND INFUSING D5. BED LOW, RAILS X2. CL IN REACH.
[2019-10-14] MEDS ORDERED: CADUET 10 MG/101 TAB PO (10:10)
[2019-10-14] MEDS ORDERED: ZOFRAN4 MG PO (10:12)
[2019-10-14] MEDS ORDERED: HYDRALAZINE HCL50 MG PO (10:16)
[2019-10-14] MEDS ORDERED: REMERON15 MG PO (10:16)
[2019-10-14] MEDS ORDERED: PRISTIQ50 MG PO (10:17)
[2019-10-14] MEDS ORDERED: LASIX20 MG PO (10:17)
[2019-10-14] MEDS ORDERED: PEPCID AC20 MG PO (10:17)
[2019-10-14] MEDS ORDERED: DULERA 200 MCG8.8 GM INH (10:18)
[2019-10-14] MEDS ORDERED: LOKELMA10 GM PO (10:18)
[2019-10-14] MEDS ORDERED: FERROUS SULFAT325 MG PO (10:18)
--- NOTE | 2019-10-14 12:30 | NUR ---
ASSISTED PT TO BR, ONE PERSON ASSIST. PT SHERITA, RYAN CHAMBERLAIN. ASSISTED PT BACK TO BED. DENIES FURTHER NEEDS. BED LOW, RAILS X2. CL IN REACH. WILL CONTINUE TO MONITOR.
[2019-10-14 13:06] VITALS: BMI 21.5
[2019-10-14 13:31] VITALS: BP 121/54
[2019-10-14 13:58] VITALS: Ht 162.6 cm; Wt 57.0 kg
[2019-10-14 15:26] LABS: ERYTHROCYTE SEDIMENTATION RATE 70 mm/hr (0-30)
[2019-10-14 16:46] VITALS: BP 163/75
[2019-10-14 17:57] LABS: PRO/CRE RATIO URINE 1.6 mg/g; PROTEIN - URINE 203.5 mg/dL (0.0-11.9)
[2019-10-14 18:08] LABS: BILIRUBIN NEGATIVE (NEGATIVE); GLUCOSE NEGATIVE (NEGATIVE); KETONE NEGATIVE (NEGATIVE); NITRITE NEGATIVE (NEGATIVE); UROBILINOGEN NORMAL (NORMAL)
[2019-10-14 20:00] VITALS: BP 156/63
[2019-10-15 04:00] VITALS: BP 145/63
--- NOTE | 2019-10-15 07:15 | NUR ---
A&O RESTING IN BED WITH EYES OPEN. NO C/O PAIN. NO S/S OF ACUTE DISTRESS NOTED. UP WITH ASSIST. PASSING GAS THIS AM. SCDS. ON 2.5L O2, NC. IV TO RIGHT FOREARM, SL AND LEFT FOREARM, 1/2 NS INFUSING @ 100ML/HR. SITES PATENT WITHOUT REDNESS OR SWELLING. ON TELEMETRY 72 SR WITH BBB. DENIES ANY NEEDS AT THIS TIME. CALL LIGHT IN REACH. WILL CONTINUE TO MONITOR.
--- NOTE | 2019-10-15 07:38 | HP ---
PATIENT: ISRAEL CHAUDHARI MEDICAL RECORD: [id number] ACCOUNT: [id number] LOCATION:[facility] [id number] : [birth year] ADMISSION DATE: 10/13/19 PCP: KAI YIP MD HISTORY AND PHYSICAL EXAMINATION REASON FOR ADMISSION: Abdominal pain and vomiting. HISTORY OF PRESENT ILLNESS: The patient is a 68-year-old female, patient of Dr. Chele Sofia, who says she awoke at 2:00 this morning with abdominal pain, nausea and then began vomiting in the ED. She states she had no alcohol last night and is a rare wine drinker. She states has had normal BM last night and this morning that was not melanotic. She states has never had anything like this before, has constant nausea. Denies fever. She denies any loss of sense of smell or taste. She presented to the ED and was evaluated by Dr. Copeland initially with normal vital signs except for temperature 99 and a blood pressure of 172/76. PAST MEDICAL HISTORY: History of treated hepatitis C in remission, cirrhosis, anemia of chronic renal disease, chronic kidney disease stage IV, COPD, nicotine abuse, currently smoking, essential hypertension, anxiety, GERD, presbycusis, history of respiratory failure on O2, hiatal hernia, osteoarthritis, chronic back pain, osteoporosis, depression, anxiety, history of thrombocytopenia, proteinuria, secondary hyperparathyroidism of renal origin. History of hepatic encephalopathy. PAST SURGICAL HISTORY: Appendectomy, hysterectomy, knee surgery, wrist surgery, recent EGD and colonoscopy showing polyps, but no tumors. Esophageal varices banding, lumbar discectomy, right total knee replacement, and arthroscopy of knee. ALLERGIES: CODEINE, MORPHINE, SULFATE, HYDROCODONE, PENICILLIN, BACTRIM, TRANXENE, HYDROMORPHONE, OXYCODONE. SOCIAL HISTORY: Current smoker for many years, 1 pack a day. Denies illegal drug use. Drinks 1 glass of wine maybe once a week. HOME MEDICATIONS: Xifaxan 550 mg p.o. daily, Ventolin inhaler HFA 1-2 puffs q.4 hours p.r.n., ferrous sulfate 325 mg daily, amlodipine 10 mg daily, Coreg 6.25 mg b.i.d., Apresoline 50 mg p.o. t.i.d., Xanax 0.5 mg t.i.d., Abilify 2 mg p.o. daily, Pristiq 50 mg daily, Sinequan 10 mg daily, Singulair 10 mg at bedtime, Daliresp 500 mg p.o. daily, Protonix 40 mg daily, and sodium bicarbonate 650 daily. REVIEW OF SYSTEMS: GENERAL: No weight change, fever, or loss of appetite until today. HEENT: No recent visual change, sinus congestion, sore throat. She has trouble hearing. RESPIRATORY: Has chronic shortness of breath, no recent cough, sputum production. CARDIAC: No recent chest pain, claudication, palpitations, or edema. GASTROINTESTINAL: She has had nausea with intermittent vomiting now dry heaves. Normal bowel movement this morning, severe abdominal pain, mid epigastric area at the umbilicus. GENITOURINARY: No incontinence. GYNECOLOGIC: No vaginal bleeding. HISTORY AND PHYSICAL [id number] ISRAEL CHAUDHARI MUSCULOSKELETAL: Has chronic lumbago without sciatica. INTEGUMENT: No rash or itching. PSYCHIATRIC: Admits to depressed mood, but no suicidal ideation or hallucinosis. PHYSICAL EXAMINATION: VITAL SIGNS: Temperature is 99 degrees Fahrenheit, pulse 83 and regular, blood pressure 167/75 with a sat of 90% on room air. HEENT: Normocephalic. Eyes are clear. Pupils are reactive. NECK: Supple, without bruits, masses or JVD. CHEST: Distant breath sounds without wheeze or rales. HEART: Regular without murmur. BREASTS: Symmetrical. ABDOMEN: Mildly distended, hyper-tympanic with rare bowel sounds. She is very tender in the epigastrium in the midline above the umbilicus. RECTAL: Deferred. EXTREMITIES: No CC and E. She has scars over the knees. SKIN: Shows no icterus. She does have multiple tattoos. Good skin turgor. LABORATORY DATA: His white count of 5200 with a normal diff, H and H is 9. 2 and 29.0, which has improved from prior 7.5 and 21. Platelet count 223,000. Chemistry: Potassium is 5, BUN and creatinine is 56 and 4.9 with a CO2 of 17.2, alkaline phosphatase of 123. Troponin less than 0.017. Amylase 105 and lipase is 447. Urinalysis is hazy, 2+ protein, otherwise unremarkable. CT of the abdomen and pelvis shows hepatic cirrhosis, small volume ascites, prominent loops of proximal small bowel, which may represent small bowel ileus. Bosniak type 2 cyst. There is a probable small mass in the left kidney 2.6 cm anteriorly calcified plaque throughout the abdominal aorta. Pancreas appears normal. ASSESSMENT: 1. Abdominal pain with vomiting possible early small-bowel obstruction. 2. Elevated lipase, possible early pancreatitis. 3. Hepatitis C in remission. 4. Chronic renal insufficiency, stage IV, anemia of chronic renal disease, nicotine addiction. 5. COPD. 6. GERD. 7. Essential hypertension. 8. Depression. PLAN: The patient will be admitted with minimal p.o. meds at this time. If nausea does not improve, we will place on Zofran drip. We will hydrate IV Apresoline as needed for hypertension. Renal consult and possible surgical consult if not improving. TRANSINT:[id number] Voice Confirmation ID: [id number] DOCUMENT ID: [id number] HISTORY AND PHYSICAL [id number] ISRAEL CHAUDHARI TIMOTHY MD at 0738 CC: [id number] DICTATION DATE: 10/13/191837 CONVENTION WORKER: 10/14/19 0019 ADM IN [facility] [address] [place] [id number]
[2019-10-15 07:52] LABS: ANION GAP 18.3 mmol/L (8-16); CREATININE - SERUM 4.7 mg/dL (0.6-1.3); POTASSIUM - SERUM 4.3 mmol/L (3.5-5.1)
[2019-10-15 08:03] LABS: BASOPHILS 0.2 % (0-2); EOSINOPHILS 2.8 % (0-7); HEMATOCRIT 23.3 % (36.0-48.0); IMMATURE GRANULOCYTES 0.2 % (0-5); LYMPHOCYTES 28.4 % (15-50); MCH 29.6 pg (26.0-34.0); MCHC 30.9 g/dL (31.0-37.0); MCV 95.9 fL (80.0-100.0); MEAN PLATELET VOLUME 9.1 fL (7.4-10.4); NEUTROPHILS 55.4 % (40-80); PLATELET COUNT 166 10x3/uL (130-400); RBC 2.43 10x6/uL (4.00-5.40); RDW 15.6 % (11.5-14.5)
[2019-10-15 08:10] LABS: WBC 4.2 10x3/uL (4.8-10.8)
[2019-10-15 08:11] LABS: HEMOGLOBIN 7.2 g/dL (12-16)
[2019-10-15 10:09] VITALS: BP 157/67
[2019-10-15 13:36] VITALS: BP 142/68
[2019-10-15 14:10] LABS: SPE - ALBUMIN 3.5 g/dL (2.9-4.4); SPE - ALPHA-1 GLOBULIN 0.2 g/dL (0.0-0.4); SPE - BETA GLOBULIN 0.8 g/dL (0.7-1.3); SPE - GAMMA GLOBULIN 1.6 g/dL (0.4-1.8); SPE - M-SPIKE Not Observed g/dL (Not Observed)
--- NOTE | 2019-10-15 16:08 | NUR ---
LYING IN BED,WITHOUT NEEDS.CALL LIGHT IN REACH
[2019-10-15 16:31] LABS: HEMATOCRIT 22.8 % (36.0-48.0)
[2019-10-15 16:53] LABS: HEMOGLOBIN 7.2 g/dL (12-16)
[2019-10-15 18:41] VITALS: BP 160/67
--- NOTE | 2019-10-15 18:52 | NUR ---
RESTING IN BED. UNIT OF PRBC INFUSING. NO C/O PAIN. NO S/S OF ACUTE DISTRESS NOTED. CALL LIGHT IN REACH.
[2019-10-15 20:00] VITALS: BP 152/69
--- NOTE | 2019-10-16 00:57 | NUR ---
PATIENT WOKE AND WAS CONFUSED. PATIENT SMOKING CIGARETTE IN ROOM. REORIENTED JESS AND PATIENT GAVE CIGARETTES TO THIS NURSE AND PLACED IN CASETTE. NOTIFIED UTILITY LINEMAN. PATIENT ACCIDENTALLY PULLED OUT IV, CATH IN TACT. PATIENT ASKED TO NOT RESTART AT THIS TIME SHE STATES "I AM SO TIRED." PATIENT BED CHANGED, RETURNED TO BED SAFELY. NOW ALERT AND ORIENTED AND DENIES NEEDS. REMINDED PATIENT THAT STOOL SAMPLE IS NEEDED. PATIENT STATES UNDERSTANDING.
--- NOTE | 2019-10-16 02:17 | NUR ---
ANSWERED PATIENT CALL LIGHT. PATIENT STATES SHE HAD TWO BOWEL MOVEMENTS. ASKED PATIENT WHY SHE DID NOT USE HAT SO THIS NURSE COULD OBTAIN SAMPLE. PATIENT STATES SHE FORGOT AND THAT SHE THOUGHT SHE WAS JUST SUPPOSED TO TELL THIS NURSE WHEN SHE WENT. RE-DISCUSSED NEEDS OF STOOL SAMPLE. PATIENT VERBALIZES UNDERSTANDING. HAT PLACED BACK IN TOILET TO OBTAIN SAMPLE.
[2019-10-16 04:00] VITALS: BP 163/73
--- NOTE | 2019-10-16 04:47 | NUR ---
RESITED PATIENT IV TO THE RIGHT FOREARM AFTER PATIENT ACCIDENTALLY PULLED OUT LEFT FOREARM. 22 G X 1 ATTEMPT. PATIENT ALSO DISCLOSES SHE DOES NOT WANT TO WEAR SCD'S ANYMORE, THAT THEY BOTHER HER. DENIES FURTHER NEEDS AT THIS TIME. CPOC.
[2019-10-16 07:17] LABS: BASOPHILS 0.3 % (0-2); EOSINOPHILS 3.7 % (0-7); HEMATOCRIT 24.8 % (36.0-48.0); LYMPHOCYTES 37.9 % (15-50); MCH 29.9 pg (26.0-34.0); MCHC 32.3 g/dL (31.0-37.0); MEAN PLATELET VOLUME 9.2 fL (7.4-10.4); NEUTROPHILS 41.1 % (40-80); PLATELET COUNT 165 10x3/uL (130-400); RBC 2.68 10x6/uL (4.00-5.40); WBC 3.8 10x3/uL (4.8-10.8)
[2019-10-16 07:18] LABS: CALCIUM 8.1 mg/dL (8.5-10.1); CREATININE - SERUM 3.9 mg/dL (0.6-1.3); MCV 92.5 fL (80.0-100.0)
[2019-10-16 10:13] VITALS: BP 162/71
--- NOTE | 2019-10-16 11:40 | NUR ---
ASSESSMENT PER FLOW SHEET. PATIENT WITHOUT DISTRESS.ANXIETY THIS AM,BUT GETTING BETTER AFTER AM MEDS. BED ALARM ON AND WORKING.CALL LIGHT IN REACH
[2019-10-16 14:34] VITALS: BP 161/70
[2019-10-16 15:12] LABS: UPE RAND - ALBUMIN 51.4 % (()); UPE RAND - ALPHA 1 GLOBULIN 5.6 % (()); UPE RAND - ALPHA 2 GLOBULIN 9.2 % (()); UPE RAND - BETA GLOBULIN 17.3 % (()); UPE RAND - GAMMA GLOBULIN 16.4 % (())
--- NOTE | 2019-10-16 15:33 | NUR ---
NUTRITION F/U CHART REVIEWED. PT REMAINS ON CLEAR LIQUID DIET. WILL CONTINUE TO MONITOR DIET ADVANCEMENT. ASSIST WITH NUTRITION SUPPORT IF NEEDED. RD FOLLOWING
[2019-10-16 20:00] VITALS: BP 158/73
--- NOTE | 2019-10-17 04:32 | NUR ---
ASSESSED AT THE BEGINNING OF THE SHIFT. PT IS ALERT AND ORIENTED, ABLE TO VERBALIZE NEEDS. SHE IS WEARING TELEMETRY AND HAS SR 87. SHE IS GETTING UP TO THE BATHROOM AD DELVIN AND AND WEARING O2 AT 2 LITERS. MD WAS CALLED TO GET PAIN MEDS AND THEN IT WAS GIVEN. PT STATES SHE HAD 3 LOOSE STOOLS DURING THE DAY BUT HAS NOT STATED SHE HAD ANY TONIGHT . WE NEED A STOOL SAMPLE AND SHE HAS BEEN ADVISED.
--- NOTE | 2019-10-17 06:32 | NUR ---
APPEARS ASLEEP AT THIS TIME AND NO DISTRESS NOTED.
[2019-10-17 07:27] LABS: ANION GAP 16.6 mmol/L (8-16); CARBON DIOXIDE 20.5 mmol/L (21.0-32.0); CREATININE - SERUM 3.4 mg/dL (0.6-1.3); POTASSIUM - SERUM 4.1 mmol/L (3.5-5.1)
[2019-10-17 07:36] LABS: BASOPHILS 0.5 % (0-2); EOSINOPHILS 10.6 % (0-7); HEMATOCRIT 29.2 % (36.0-48.0); HEMOGLOBIN 9.5 g/dL (12-16); IMMATURE GRANULOCYTES 2.5 % (0-5); LYMPHOCYTES 38.1 % (15-50); MCH 29.3 pg (26.0-34.0); MCHC 32.5 g/dL (31.0-37.0); MEAN PLATELET VOLUME 9.3 fL (7.4-10.4); MONOCYTES 14.6 % (2-11); NEUTROPHILS 33.7 % (40-80); PLATELET COUNT 174 10x3/uL (130-400); RDW 16.8 % (11.5-14.5)
[2019-10-17 07:41] LABS: MCV 90.1 fL (80.0-100.0); RBC 3.24 10x6/uL (4.00-5.40)
[2019-10-17 11:02] VITALS: BP 154/75
[2019-10-17 13:02] VITALS: BP 144/58
[2019-10-17 17:08] VITALS: BP 171/78
[2019-10-17 20:00] VITALS: BP 175/83
--- NOTE | 2019-10-18 02:12 | NUR ---
I have reviewed this patient and I concur with the Shift Assessment completed by the Licensed Practical Nurse today this shift.
[2019-10-18 07:01] LABS: BASOPHILS 0.3 % (0-2); HEMATOCRIT 29.3 % (36.0-48.0); HEMOGLOBIN 9.4 g/dL (12-16); LYMPHOCYTES 40.6 % (15-50); MCH 28.9 pg (26.0-34.0); MCHC 32.1 g/dL (31.0-37.0); MCV 90.2 fL (80.0-100.0); MEAN PLATELET VOLUME 9.1 fL (7.4-10.4); MONOCYTES 13.7 % (2-11); NEUTROPHILS 41.4 % (40-80); PLATELET COUNT 175 10x3/uL (130-400); RBC 3.25 10x6/uL (4.00-5.40); RDW 16.3 % (11.5-14.5); WBC 3.7 10x3/uL (4.8-10.8)
[2019-10-18 07:25] LABS: ANION GAP 17.6 mmol/L (8-16); CALCIUM 8.1 mg/dL (8.5-10.1); CARBON DIOXIDE 20.1 mmol/L (21.0-32.0); CREATININE - SERUM 3.2 mg/dL (0.6-1.3); POTASSIUM - SERUM 3.7 mmol/L (3.5-5.1)
[2019-10-18 09:57] VITALS: BP 180/82
[2019-10-18 14:09] VITALS: BP 166/79
[2019-10-18 17:04] VITALS: BP 178/78
[2019-10-18 21:00] VITALS: BP 166/70
--- NOTE | 2019-10-19 04:19 | NUR ---
I have reviewed this patient and I concur with the Shift Assessment completed by the Licensed Practical Nurse today this shift.
[2019-10-19 06:56] LABS: BASOPHILS 0.3 % (0-2); HEMATOCRIT 28.8 % (36.0-48.0); HEMOGLOBIN 9.3 g/dL (12-16); IMMATURE GRANULOCYTES 0.3 % (0-5); LYMPHOCYTES 42.1 % (15-50); MCHC 32.3 g/dL (31.0-37.0); MCV 89.7 fL (80.0-100.0); MEAN PLATELET VOLUME 8.8 fL (7.4-10.4); MONOCYTES 14.4 % (2-11); NEUTROPHILS 38.9 % (40-80); PLATELET COUNT 179 10x3/uL (130-400); RBC 3.21 10x6/uL (4.00-5.40); RDW 16.1 % (11.5-14.5); WBC 3.8 10x3/uL (4.8-10.8)
[2019-10-19 07:19] LABS: ANION GAP 15.2 mmol/L (8-16); CALCIUM 8.2 mg/dL (8.5-10.1); CARBON DIOXIDE 20.9 mmol/L (21.0-32.0); CREATININE - SERUM 3.4 mg/dL (0.6-1.3)
[2019-10-19 07:25] LABS: POTASSIUM - SERUM 3.1 mmol/L (3.5-5.1)
[2019-10-19 09:01] VITALS: BP 156/74
[2019-10-19 12:25] VITALS: BP 151/70
--- NOTE | 2019-10-19 13:11 | NUR ---
PATIENT IN ROOM EATING LUNCH. DENIES NEEDS OR PAIN. BED LOW POSITION, CALL LIGHT IN REACH, WILL CONTINUE TO MONITOR.
[2019-10-19 16:00] VITALS: BP 170/73
--- NOTE | 2019-10-19 16:15 | NUR ---
LEFT FOREARM IV REMOVED. CATH TIP INTACT.
--- NOTE | 2019-10-19 17:49 | NUR ---
PATIENT RECIEVED DC INSTRUCTIONS BY ALLEN GARCIA. TRANPORTED OUT OF HOSPITAL VIA WC BY MID LEVEL DEVELOPER WITH PERSONAL BELONGINGS TO PRIVATE VEHICLE.
--- NOTE | 2019-10-20 07:58 | DS ---
PATIENT:ISRAEL CHAUDHARI :48 MEDICAL RECORD: [id number] DISCHARGE SUMMARY ADMISSION DATE: 10/13/19 DISCHARGE DATE: 10/19/19 DISCHARGE DIAGNOSES: [id number] renal insufficiency, anemia of chronic disease, abdominal pain with partial small-bowel obstruction, cirrhosis of the liver, hepatitis C, hepatic encephalopathy, improved, esophageal varices, melena, chronic obstructive pulmonary disease, and hypertension. HOSPITAL COURSE: A 68-year-old female with both history of cirrhosis and chronic renal insufficiency with creatinine approximately 3 range. She presented with creatinine of over 5, nausea, vomiting and abdominal distention. Initial CT did show partial small-bowel obstruction. She was held n.p.o., placed on IV fluids for hydration and creatinine monitored. Her creatinine did drop from 5.2 down to 3.2. An ultrasound performed without obstruction, did show question. She has renal cyst on the right and a question of solid mass in the left kidney. It was seen on CT scan, but not on ultrasound, MRI is recommended. Discussed with the patient. She said she did not want MRI any further workup for the suspicious mass in the left kidney. She has full responsibility for this realizing could be a malignancy. She agreed to have followup CT in 3-[address] Sofia or renal. The patient denies being gradually advanced. Her bowels are moving well. Her ammonia level has improved. Creatinine is down to 3.4 at this time. She will discharge today to have follow up with Dr. Sofia in 1 week with BMP and CBC and Dr. Vicente in 2 weeks. Discharge white count 3800, H&H is 9.3 and 28.8 after 2 units of packed cells and 8000 units of Procrit. Potassium was 3.1, corrected orally prior to discharge. Creatinine now 3.2-3.4. No blood cultures were performed. DISCHARGE MEDICATIONS: Xifaxan 550 mg p.o. b.i.d., Ventolin HFA 1-2 puffs q.4 hours p.r.n., DuoNeb updrafts p.r.n., ferrous sulfate 325 mg a day, hydralazine 50 mg t.i.d., Coreg 6.25 mg b.i.d., she is on Caduet 12/12 one p.o. at bedtime, Pristiq 50 mg daily, Abilify 2 mg daily, Remeron 15 mg at bedtime, Xanax 0.5 t.i.d. p.r.n. anxiety, Sinequan 10 mg p.o. daily, Lasix 20 mg p.o. in the morning, sodium zirconium 10 grams p.o. daily, montelukast 10 mg p.o. at bedtime, Dulera 2 puffs b.i.d., Daliresp 500 mcg daily, p.o. Pepcid 20 mg at bedtime, Zofran 4 mg q.4 hours p.r.n. nausea or vomiting, Protonix 40 mg a day, sodium bicarbonate 650 mg p.o. daily, and Carafate 1 g p.o. before meals. ACTIVITY: Progress as tolerated. Return to clinic to see Dr. Sofia in 1 week with BMP, CBC, renal in 2 weeks. DIET: Renal. TRANSINT:[id number] Voice Confirmation ID: [id number] DOCUMENT ID: [id number] KAI YIP MD at 0758 CC: [id number] DICTATION DATE: 10/19/19 1546 LOADING MACHINE ADJUSTER: 10/20/19 0124 DIS IN 10/19/19 [facility] [address] [place] [address]
== END 2019-10-19 17:51 | disposition home or self-care (01) | DRG 683 ==
LOC: D.ER 09:39 → D.MS 15:57
PROVIDERS: Emergency Medicine; Family Medicine; Internal Medicine Nephrology; ADMIT Family Medicine; ATTEND Family Medicine
DX: N17.9 Acute kidney failure, unspecified (principal); K56.609 Unspecified intestinal obstruction, unspecified as to partial versus complete obstruction; R18.8 Other ascites; J44.1 Chronic obstructive pulmonary disease with (acute) exacerbation; N18.4 Chronic kidney disease, stage 4 (severe); I12.9 Hypertensive chronic kidney disease with stage 1 through stage 4 chronic kidney disease, or unspecified chronic kidney disease; K74.60 Unspecified cirrhosis of liver; F32.9 Major depressive disorder, single episode, unspecified; D63.1 Anemia in chronic kidney disease; B19.20 Unspecified viral hepatitis C without hepatic coma; K72.90 Hepatic failure, unspecified without coma; E86.9 Volume depletion, unspecified

== ENCOUNTER 2019-12-04 20:06 | Inpatient (IN) | payer MEDICARE, MEDICAID ==
[~2019-12-04] VITALS: Ht 162.6 cm; Wt 54.5 kg
[~2019-12-04 20:06] MED LIST changes: +CADUET 10 MG/101 TAB PO; -DOXEPIN HCL10 MG PO; +DULERA 200 MCG8.8 GM INH; +LASIX20 MG PO; +LOKELMA10 GM PO; +PEPCID AC20 MG PO; +REMERON15 MG PO; +SINEQUAN25 MG PO
--- NOTE | 2019-12-04 20:39 | NUR ---
IV ESTABLISHED 22 GA LEFT FA BLOOD OBTAINED AND HANDED OFF TO VERIFICATION LEAD.
[2019-12-04 20:46] LABS: BASOPHILS 0.1 % (0-2); EOSINOPHILS 0.7 % (0-7); HEMATOCRIT 25.8 % (36.0-48.0); HEMOGLOBIN 8.3 g/dL (12-16); IMMATURE GRANULOCYTES 0.4 % (0-5); LYMPHOCYTES 16.4 % (15-50); MCH 29.4 pg (26.0-34.0); MCHC 32.2 g/dL (31.0-37.0); MCV 91.5 fL (80.0-100.0); MEAN PLATELET VOLUME 9.1 fL (7.4-10.4); MONOCYTES 16.5 % (2-11); NEUTROPHILS 65.9 % (40-80); RBC 2.82 10x6/uL (4.00-5.40); RDW 16.5 % (11.5-14.5); WBC 12.1 10x3/uL (4.8-10.8)
[2019-12-04 20:47] LABS: PLATELET COUNT 277 10x3/uL (130-400)
[2019-12-04 20:58] VITALS: BP 124/67
[2019-12-04 21:07] LABS: APTT 38.8 SECONDS (22.8-39.4); INR 1.37 (0.85-1.17); PROTIME 16.8 SECONDS (11.6-15.0)
[2019-12-04 21:17] LABS: CALC OSMOLALITY 290 mosm/kg (275-300); CALCIUM 8.3 mg/dL (8.5-10.1); CARBON DIOXIDE 14.1 mmol/L (21.0-32.0); CHLORIDE - SERUM 104 mmol/L (98-107); CREATININE - SERUM 4.9 mg/dL (0.6-1.3); GLUCOSE 119 mg/dL (74-106); POTASSIUM - SERUM 5.2 mmol/L (3.5-5.1); SODIUM 133 mmol/L (136-145); UREA NITROGEN 81 mg/dL (7-18); eGFR NON AFRICAN AMERICAN 9 mL/min (90-120)
[2019-12-04 21:21] LABS: D-DIMER-QUANTITATIVE 8.11 ug/mLFEU (0.20-0.54)
[2019-12-04 21:32] LABS: ALKALINE PHOSPHATASE 164 U/L (30-120); ALT (SGPT) 22 U/L (10-68); AMYLASE - SERUM 51 U/L (25-115); BILIRUBIN - TOTAL 0.28 mg/dL (0.2-1.3); CKMB 1.1 U/L (0.0-3.6); LIPASE 260 U/L (73-393); MAGNESIUM - SERUM 1.9 mg/dL (1.8-2.4); PROTEIN - SERUM 7.8 g/dL (6.4-8.2)
[2019-12-04 21:42] LABS: PRO BNP < 5 pg/mL (0-125); TROPONIN-I < 0.017 ng/mL (0.000-0.060)
[2019-12-04 21:43] VITALS: BP 136/70
--- NOTE | 2019-12-04 22:56 | NUR ---
URINE OBTAINED AND SENT TO LAB
[2019-12-04 23:08] LABS: BILIRUBIN NEGATIVE (NEGATIVE); KETONE NEGATIVE (NEGATIVE); NITRITE NEGATIVE (NEGATIVE); UROBILINOGEN NORMAL mg/dL (< 2)
[2019-12-04 23:15] LABS: C-REACTIVE PROTEIN 57.5 mg/dL (0.0-0.9)
[2019-12-04 23:17] VITALS: BP 128/65
[2019-12-05] VITALS (11 sets, daily range): BP systolic 110–158; BP diastolic 52–100; BMI 20.6
--- NOTE | 2019-12-05 01:01 | NUR ---
REPORT RECEIVED FROM JOSE APARICIO, ASSUMED CARE OF PT AT THIS TIME. PT REPOSITIONED IN STRETCHER X2 ASSIST. CALL LIGHT WITHIN REACH, WILL CONTINUE TO MONITOR.
--- NOTE | 2019-12-05 02:57 | NUR ---
PT MOVED FROM STRETCHER TO HOSPITAL BED FOR COMFORT. REPOSITIONED IN BED X2 ASSIST. NOTABLY SHORT OF BREATH, MAINTAINING 94% ON 5L NC, RESPIRATIONS 38 A
--- NOTE | 2019-12-05 02:57 | NUR ---
PT MOVED FROM STRETCHER TO HOSPITAL BED FOR COMFORT, CHANGED INTO GOWN. REPOSITIONED IN BED X2 ASSIST. NOTABLY SHORT OF BREATH, MAINTAINING 94% ON 5L NC. RESPIRATORY CALLED FOR ALBUTEROL TX. CALL LIGHT WITHIN REACH. WILL CONTINUE TO MONITOR.
--- NOTE | 2019-12-05 04:35 | NUR ---
ASSISTED PT WITH BEDPAN AT THIS TIME, MEDICATION GIVEN PER MAY. SPOKE WITH LENNY RT CONCERNING PT RESPIRATIONS. PT STILL MAINTAINING SAT 96% TO CONTINUE PLAN OF CARE.
[2019-12-05 06:18] LABS: BASOPHILS 0 % (0-2); EOSINOPHILS 0 % (0-7); HEMATOCRIT 23.5 % (36.0-48.0); IMMATURE GRANULOCYTES 0.5 % (0-5); LYMPHOCYTES 6.8 % (15-50); MCH 28.6 pg (26.0-34.0); MCHC 31.1 g/dL (31.0-37.0); MCV 92.2 fL (80.0-100.0); MEAN PLATELET VOLUME 9.4 fL (7.4-10.4); MONOCYTES 1.2 % (2-11); NEUTROPHILS 91.5 % (40-80); PLATELET COUNT 268 10x3/uL (130-400); RBC 2.55 10x6/uL (4.00-5.40); RDW 16.7 % (11.5-14.5)
[2019-12-05 06:19] LABS: WBC 8.2 10x3/uL (4.8-10.8)
[2019-12-05 06:20] LABS: HEMOGLOBIN 7.3 g/dL (12-16)
--- NOTE | 2019-12-05 06:25 | NUR ---
CALLED DR. RANKIN CONCERNING PT CRITICAL LAB RESULT HGB 7.3, OCCULT BLOOD STOOL NEGATIVE. DR. RANKIN INFORMED. VERBAL ORDERS RECEIVED, SEE ORDERS. DR. RANKIN TOLD NURSE TO HOLD OFF ON BLOOD TRANSFUSION UNTIL DR. LUND ASSESSES PT.
[2019-12-05 06:33] LABS: ALBUMIN 2.7 g/dL (3.4-5.0); ALKALINE PHOSPHATASE 149 U/L (30-120); ALT (SGPT) 20 U/L (10-68); BILIRUBIN - TOTAL 0.21 mg/dL (0.2-1.3); CALC OSMOLALITY 303 mosm/kg (275-300); CALCIUM 8.1 mg/dL (8.5-10.1); CHLORIDE - SERUM 111 mmol/L (98-107); CKMB 1.3 U/L (0.0-3.6); CREATINE KINASE 23 UL (21-215); CREATININE - SERUM 4.8 mg/dL (0.6-1.3); GLUCOSE 148 mg/dL (74-106); POTASSIUM - SERUM 5.8 mmol/L (3.5-5.1); PROTEIN - SERUM 7.3 g/dL (6.4-8.2); SODIUM 138 mmol/L (136-145); UREA NITROGEN 82 mg/dL (7-18); eGFR NON AFRICAN AMERICAN 9 mL/min (90-120)
[2019-12-05 06:40] LABS: TROPONIN-I < 0.017 ng/mL (0.000-0.060)
--- NOTE | 2019-12-05 07:00 | NUR ---
PT STILL HAS NS INFUSING AT 125ML/HR, PT CONTINUES TO MESS WITH HER IV AND HAS STOPPED HER INFUSION A FEW TIMES.
--- NOTE | 2019-12-05 08:15 | NUR ---
PT SITTING ON THE EDGE OF HER BED WITH ALL V/S EQUIPMENT REMOVED. PT INFORMED THAT SHE NEEDS TO STAY IN BED AND KEEP ALL V/S EQUIPMENT ON. PT PULLING AT HER IV AT THIS TIME, STATING "HOW LONG DOES THIS THING NEED TO STAY ON." PT INSTRUCTED THAT IT IS HER IV AND IT IS GIVING HER MEDICATION, SO SHE NEEDS TO LEAVE IT ON. PT ASSISTED BACK INTO BED AND V/S EQUIPMENT PLACED BACK ON PT.
--- NOTE | 2019-12-05 08:45 | NUR ---
PT ASSISTED BACK INTO BED, SHE WAS NOTED TRYING TO WALK ACROSS THE ROOM. PT AGAIN HELPED BACK INTO POSITION OF COMFORT AND SAFETY AND V/S EQUIPMENT PLACED ON PT. PT GIVEN HER BREAKFAST TRAY AND MEAL SET UP IN ORDER TO HELP HER EAT MORE SUCCESSFULLY AND TO ATTEMPT TO KEEP THE PT IN BED AND ALL PROPER EQUIPMENT IN PLACE.
--- NOTE | 2019-12-05 11:30 | NUR ---
PT'S FIRST LITER OF NS, STILL CONTINUES TO INFUSE PT IS VERY ANXIOUS AND STILL CONTINUES TO DISCONNECT HERSELF FROM INFUSING IV. PT CONTINUES TO TRY TO MOVE AROUND THE ROOM, ALTHOUGH SHE HAS BEEN REDIRECTED AND INSTRUCTED TO STAY IN BED AND USE HER CALL LIGHT. PT SHOWN HER CALL LIGHT MULTIPLE TIMES.
--- NOTE | 2019-12-05 12:19 | NUR ---
Pt out of bed and in a wheelchair, states needs to void. Pt placed obto bedside commode and voided. Pt cleaned and placed back into bed. Pt wants her hearing aids and found them in her purse but states her dog chewed them. Tv turned on and blanket applied for comfort and water given per request. Instructed to use the call light for any other needs. IV pulled out and found in bed from Rt AC site, no bleeding noted. Pt continues to have IV saline lock to RT FA.
--- NOTE | 2019-12-05 13:12 | NUR ---
PT CONTINUES TO HAVE APPROXIMATELY 200ML OF NS INFUSING FROM INITIAL LITER OF NS.
--- NOTE | 2019-12-05 14:24 | NUR ---
PT DISCONNECTED FROM HER V/S EQUIPEMENT, PT LEANING OUT OF THE BED AND REACHING DOWN ONTO THE FLOOR TO TRY TO OBTAIN SOMETHING. WHEN ASKED WHAT SHE WAS DOING PT REPORTED, "I DONT KNOW, I'M CONFUSED." PT ASSISTED BACK INTO BED, IN POSITION OF COMFORT. WHILE HELPING PT BACK INTO BED, ED NURSE NOTED THAT PT DID NOT HAVE HER OXYGEN ON, PT'S O2 SATURATION 92 ON RA. PT'S RESPIRATORY RATE CONTINUES TO BE TACHY ESPECIALLY WITH EXERTION. PT CONTINUES TO APPEAR AGITATED SHE ATTEMPTS TO MOVE AROUND THE ROOM. WHEN ASKED WHERE SHE IS AT, PT REPORTS [employer], BUT PT CONTINUES TO TRY TO REMOVE HER IV STATING THAT SHE CAN'T "FIGURE OUT HOW TO TURN THIS THING OFF." PT INSTRUCTED THAT SHE NEEDS TO LEAVE HER IV IN PLACE IT IS GIVING HER MEDICATION.
--- NOTE | 2019-12-05 16:13 | NUR ---
REPORT CALLED TO [facility] ON [facility] REGARDING THE PT. [facility] STATED THAT THEY WOULD CALL BACK WHEN PT'S ROOM IS CLEAN.
--- NOTE | 2019-12-05 18:31 | NUR ---
JUST ARRIVED TO ROOM 2232 WITH NOTED CONFUSION. RESP EVEN AND UNLABORED WITH DISTRESS NOTED. CAN EXPRESS SOME NEEDS AND WANTS. NO C/O NOTED OR VOICED AT THIS TIME. C/L IN REACH AT BEDSIDE.
--- NOTE | 2019-12-05 21:00 | NUR ---
PT SEEN OOB. RETURNED TO BED, KEV MAT APPLIED. CONFUSED. ORIENTED TO SELF. PT HAD CIGARETTES AND PILL BOTTLES FOR ASPIRIN AND XANAX IN PURSE, REMOVED FROM ROOM, LABELED, AND SET IN CASSETTE. CTM.
[2019-12-06] MEDS ORDERED: LOW DOSE ASPIRI81 M1 PO (03:26)
[2019-12-06 06:51] LABS: BASOPHILS 0 % (0-2); EOSINOPHILS 0.1 % (0-7); HEMATOCRIT 21.9 % (36.0-48.0); IMMATURE GRANULOCYTES 0.5 % (0-5); LYMPHOCYTES 7.5 % (15-50); MCH 28.7 pg (26.0-34.0); MCHC 31.1 g/dL (31.0-37.0); MCV 92.4 fL (80.0-100.0); MEAN PLATELET VOLUME 9.1 fL (7.4-10.4); MONOCYTES 4.8 % (2-11); NEUTROPHILS 87.1 % (40-80); PLATELET COUNT 302 10x3/uL (130-400); RBC 2.37 10x6/uL (4.00-5.40); RDW 17.1 % (11.5-14.5); WBC 8.6 10x3/uL (4.8-10.8)
[2019-12-06 07:30] LABS: ALBUMIN 2.8 g/dL (3.4-5.0); ANION GAP 20.9 mmol/L (8-16); BILIRUBIN - TOTAL 0.17 mg/dL (0.2-1.3); CALCIUM 8.5 mg/dL (8.5-10.1); CARBON DIOXIDE 12.2 mmol/L (21.0-32.0); CREATININE - SERUM 4.4 mg/dL (0.6-1.3); POTASSIUM - SERUM 5.1 mmol/L (3.5-5.1)
--- NOTE | 2019-12-06 07:54 | NUR ---
0700 FOUND PT IN BATHROOM WITH ASSIST EXPIRATORY WHEEZING AND HERNANDES WEARING 02 AT 5L HFNC ASSISTED BACK TO BED AND CALLED RT FOR RESP TX PLACED MONITOR ON
--- NOTE | 2019-12-06 07:56 | NUR ---
UPDRAFT TREATMENT COMPLETE
[2019-12-06 07:58] LABS: HEMOGLOBIN 6.8 g/dL (12-16)
--- NOTE | 2019-12-06 08:40 | NUR ---
0759 CRITICAL LAB HGB 6.[address] LUND NEW ORDER TRANSFUSE 2 UNITS PRBC GIVE LASIX 20MG IV IN BETWEEN UNITS.
[2019-12-06 09:15] VITALS: BP 167/74
--- NOTE | 2019-12-06 09:37 | NUR ---
0920 STARTED 1ST UNIT PRBC
--- NOTE | 2019-12-06 10:29 | NUR ---
1000 DECREASED 02 T0 2.5L/HFNC O2 SAT 92% DR SUTHERLAND ROUNDING ON PT NEW ORDERS NOTED
--- NOTE | 2019-12-06 10:30 | NUR ---
1015 PLACED PADILLA PER ORDER
[2019-12-06 12:23] VITALS: BP 161/84
--- NOTE | 2019-12-06 14:31 | NUR ---
1359 PRBC X 2 UNITS COMPLETE
--- NOTE | 2019-12-06 14:32 | NUR ---
[address] LUND OF HEART RATE INCREASE UP TO 130 RT STOPPED NEB TREATMENT ASHELY SAID HE WAS IN ER AND WILL RETURN TO EVAL PT
--- NOTE | 2019-12-06 16:43 | NUR ---
1600 DR SHUKLA ROUNDING ON PATIENT NEW ORDERS NOTED INCREASED BICARB DRIP TO 50ML PER ORDER
[2019-12-06 17:40] VITALS: BP 124/62
--- NOTE | 2019-12-06 18:09 | NUR ---
1615 SINUS RHYTHM CALLED FOR UPDATE AND PT HAD GONE INTO AFIB
--- NOTE | 2019-12-06 18:17 | NUR ---
[address] LUND OF AFIB AT 107 NOTED PT IS ON SLOVENO 50MG Q24 NO NEW ORDERS NOTED
--- NOTE | 2019-12-06 18:18 | NUR ---
1700 PT PLACED O BPAP PER ORDERS BY RT
--- NOTE | 2019-12-06 19:00 | NUR ---
RECEIVED REPORT, ASSUMED CARE, BREATHING EVEN UNLABORED, CALL LIGHT IN REACH, BED LOWEST POSITION, DENIES NEEDS, NO S/S OF DISTRESS NOTED, IV RH PATENT, BIPAP ON, KEV ALARM ON, PADILLA TO GRAVITY
[2019-12-06 19:30] LABS: HEMATOCRIT 29.2 % (36.0-48.0); HEMOGLOBIN 9.5 g/dL (12-16)
[2019-12-06 21:35] VITALS: BP 147/84
[2019-12-07] VITALS (16 sets, daily range): BP systolic 111–152; BP diastolic 46–98
[2019-12-07 06:02] LABS: BASOPHILS 0 % (0-2); EOSINOPHILS 0 % (0-7); HEMATOCRIT 31.2 % (36.0-48.0); HEMOGLOBIN 9.1 g/dL (12-16); IMMATURE GRANULOCYTES 1.6 % (0-5); LYMPHOCYTES 6.3 % (15-50); MCH 25.9 pg (26.0-34.0); MCHC 29.2 g/dL (31.0-37.0); MEAN PLATELET VOLUME 10.3 fL (7.4-10.4); MONOCYTES 4.6 % (2-11); NEUTROPHILS 87.5 % (40-80); PLATELET COUNT 260 10x3/uL (130-400); RDW 18.8 % (11.5-14.5); WBC 8.5 10x3/uL (4.8-10.8)
[2019-12-07 06:05] LABS: MCV 88.9 fL (80.0-100.0); RBC 3.51 10x6/uL (4.00-5.40)
[2019-12-07 06:31] LABS: ALBUMIN 2.8 g/dL (3.4-5.0); BILIRUBIN - TOTAL 0.15 mg/dL (0.2-1.3); CALCIUM 8.5 mg/dL (8.5-10.1); CREATININE - SERUM 4.3 mg/dL (0.6-1.3); POTASSIUM - SERUM 5.2 mmol/L (3.5-5.1)
[2019-12-07 06:35] LABS: ANION GAP 19.9 mmol/L (8-16); CARBON DIOXIDE 18.3 mmol/L (21.0-32.0)
--- NOTE | 2019-12-07 10:40 | NUR ---
PT ARRIVED TO UNIT AT THIS TIME VIA BED ACCOMPANIED BY HOSPITAL STAFF. PER DR MORALES "WHEN PT ARRIVES CALL ANESTHESIOLOGY TO INTUBATED." DR SLAUGHTER HAS ALREADY BEEN MADE AWARE OF THIS CONSULT, AND WAS HERE READY FOR PTS ARRIVAL TO UNIT. PT INTUBATED IMMEDIATELY. ETT 8.0, 21 AT THE LIP. IV INTUBATION MEDS ADMIN BY PHYSICIAN. PHYSICAIN ORDERED DIPROVAN FOR SEDATION. VSS. WILL CONTINUE PLAN OF CARE.
--- NOTE | 2019-12-07 10:45 | NUR ---
BEDSIDE REPORT RECEIVED PT ON 70% 02 VIA BPAP ASSESSMENT COMPLETE
--- NOTE | 2019-12-07 10:46 | NUR ---
BERTA SPOKE WITH SPOUSE REGARDING DNR SPOUSE INSIST FULL CODE STATUS
--- NOTE | 2019-12-07 10:46 | NUR ---
SPOKE WITH DR SUTHERLAND REGARD DECREASING STATUS SP
--- NOTE | 2019-12-07 10:48 | NUR ---
DR SHUKLA RETURNED PAGE ASKING TO INTUBATE AND NOTIFY ANESTHESIA
--- NOTE | 2019-12-07 10:49 | NUR ---
TRANSPORTED TO 2300 AFTER GIVING REPORT TO SANDRA AGRCIA IN ICU TRANSPORTERD WITH O2 AND TELEMETRY SPOUSE NOT IN ROOM AT THIS TIME BUT HAD REPORTED THAT SHE MANDY GO TO ICU FOR A HIGHER LEVEL OF CARE
--- NOTE | 2019-12-07 15:19 | NUR ---
1330 180FR OGT PLACED.. PLACEMENT CHECKED WITH AIR BOLUS...
[2019-12-08] VITALS (23 sets, daily range): BP systolic 129–173; BP diastolic 71–89; BMI 22.8
[2019-12-08 05:00] LABS: BASOPHILS 0 % (0-2); EOSINOPHILS 0 % (0-7); HEMATOCRIT 27.9 % (36.0-48.0); HEMOGLOBIN 8.9 g/dL (12-16); IMMATURE GRANULOCYTES 0.5 % (0-5); LYMPHOCYTES 8.7 % (15-50); MCH 27.6 pg (26.0-34.0); MCHC 31.9 g/dL (31.0-37.0); MEAN PLATELET VOLUME 9.1 fL (7.4-10.4); MONOCYTES 4.6 % (2-11); NEUTROPHILS 86.2 % (40-80); PLATELET COUNT 268 10x3/uL (130-400); RBC 3.23 10x6/uL (4.00-5.40)
[2019-12-08 05:12] LABS: MCV 86.4 fL (80.0-100.0); WBC 4.1 10x3/uL (4.8-10.8)
[2019-12-08 05:25] LABS: ALBUMIN 2.4 g/dL (3.4-5.0); BILIRUBIN - TOTAL 0.11 mg/dL (0.2-1.3); CALCIUM 8.1 mg/dL (8.5-10.1); CARBON DIOXIDE 19.1 mmol/L (21.0-32.0); CREATININE - SERUM 4.3 mg/dL (0.6-1.3); PHOSPHOROUS 6.1 mg/dL (2.5-4.9); PROTEIN - SERUM 7.1 g/dL (6.4-8.2)
[2019-12-08 05:30] LABS: ANION GAP 19.2 mmol/L (8-16); POTASSIUM - SERUM 4.3 mmol/L (3.5-5.1)
--- NOTE | 2019-12-08 06:36 | NUR ---
DR. SUTHERLAND NOTIFIED OF BUN
[2019-12-08 09:01] LABS: INR 1.33 (0.85-1.17); PROTIME 16.4 SECONDS (11.6-15.0)
[2019-12-08 09:11] LABS: COMPLEMENT C4 25.5 mg/dL (17.4-52.2)
--- NOTE | 2019-12-08 09:46 | NUR ---
OGT ADVANCED. HEARD IN STOMACH. MEDS GIVEN. ORAL CARE PROVIDED. PT TOLERATED WELL.
[2019-12-09] VITALS (22 sets, daily range): BP systolic 75–182; BP diastolic 37–90
[2019-12-09 05:25] LABS: BASOPHILS 0 % (0-2); EOSINOPHILS 0 % (0-7); HEMATOCRIT 27.4 % (36.0-48.0); HEMOGLOBIN 9.2 g/dL (12-16); IMMATURE GRANULOCYTES 1.1 % (0-5); LYMPHOCYTES 16.3 % (15-50); MCH 28.8 pg (26.0-34.0); MCHC 33.6 g/dL (31.0-37.0); MCV 85.9 fL (80.0-100.0); MEAN PLATELET VOLUME 9.6 fL (7.4-10.4); NEUTROPHILS 77.6 % (40-80); PLATELET COUNT 268 10x3/uL (130-400); RBC 3.19 10x6/uL (4.00-5.40); RDW 17.6 % (11.5-14.5); WBC 3.6 10x3/uL (4.8-10.8)
[2019-12-09 05:36] LABS: ALBUMIN 2.5 g/dL (3.4-5.0); BILIRUBIN - TOTAL 0.4 mg/dL (0.2-1.3); CALCIUM 8.2 mg/dL (8.5-10.1); CREATININE - SERUM 4.1 mg/dL (0.6-1.3); PROTEIN - SERUM 6.8 g/dL (6.4-8.2)
[2019-12-09 05:51] LABS: ANION GAP 16.3 mmol/L (8-16); CARBON DIOXIDE 24.3 mmol/L (21.0-32.0); POTASSIUM - SERUM 3.6 mmol/L (3.5-5.1)
--- NOTE | 2019-12-09 08:59 | EC ---
PATIENT:ISRAEL CHAUDHARI DATE OF SERVICE: 12/04/19 SEX: F MEDICAL RECORD: [id number] DATE OF : 48 LOCATION:[facility] D230 AGE OF PATIENT: 69 ADMISSION DATE: 12/04/19 REFERRING PHYSICIAN: INTERPRETING PHYSICIAN: JACQUELYN MORELOS MD ECHOCARDIOGRAM REPORT ECHO CHARGES 4 ECHO COMPLETE Date: 12/07/19 CLINICAL DIAGNOSIS: SOB ECHOCARDIOGRAPHIC MEASUREMENTS (adult normal given) AC root (d.<3.7cm) 3.5 cm LV Septum d (<1.2 cm> 1.9 cm Valve Excursion 2.0 cm LV Septum (systole) 2.2 cm Left Atria (s.<4.0cm> 4.7 cm LVPW d(<1.2cm) 1.8 cm RV (d.<2.3cm) 3.6 cm LVPW (sytole) 2.1 cm LV diastole(<5.6CM) 5.5 cm MV E-F(>70mm/sec) cm LV systole 3.1 cm LVOT Diameter 1.9 cm MV exc.(>10mm) 2.0 cm Est.ejection fraction (50-75%) % DOPPLER: LVIT cm/sec A 118.0cm/sec E cm/sec LA cm/sec RVSP 39 mmHg LVOT 115 cm/sec AOP1/2T m/s Asc. Ao 166 cm/sec RVOT 104 cm/sec RA cm/sec PA 173 cm/sec AV Gradient Peak 11.07mmHg AV Mean 6.07 mmHg AV Area 1.8 cm MV Gradient Peak 7.74 mmHg MV Mean 3.20 mmHg MV Area cm COMMENTS: Director Of Professional Services: 2 PASCUAL ROY Researcher: 3 Dr. Lainez TAPE# PACS Pericardial Effusion Y DATE OF SERVICE: Adequate 2D, color flow imaging, spectral Doppler, and M-Mode. LVH is present. LV internal dimensions are normal. Wall motion is normal. EF is greater than or equal to 55%. Aortic valve is tricuspid. No evidence of stenosis by Doppler interrogation. Left atrium is dilated at 4.7 cm. Mitral valve shows no prolapse. Mild MR. Right-sided chambers are grossly normal. Mild TR. Incidental note is made is made of small pericardial effusion of no hemodynamic significance. ECHOCARDIOGRAM REPORT [id number] ISRAEL CHAUDHARI EF of Aortic valve is tricuspid. No evidence of clubbing, cyanosis. NOSE: No evidence of stenosis by Doppler interrogation. Left atrium dilated at 4.7 cm in approximately mild MR. Right-sided chambers are grossly normal. Mild TR. Incidental note is made of small pericardial effusion of no hemodynamic significance. TRANSINT:[id number] Voice Confirmation ID: [id number] DOCUMENT ID: [id number] JACQUELYN MORELOS MD at 0859 CC: [id number] DICTATION DATE: 12/08/19 1223 RIBBING MACHINE OPERATOR: 12/08/[address] [facility] [address] [id number]
[2019-12-09 09:13] LABS: ANA REFLEX - ANTICHROMATIN ABS <0.2 AI (0.0-0.9); ANA REFLEX - CENTROMERE B ABS <0.2 AI (0.0-0.9); ANA REFLEX - DBL STRANDED DNA 13 IU/mL (0-9); ANA REFLEX - DIRECT Positive (Negative); ANA REFLEX - JO-1 AB <0.2 AI (0.0-0.9); ANA REFLEX - RNP ANTIBODIES <0.2 AI (0.0-0.9); ANA REFLEX - SCL-70 <0.2 AI (0.0-0.9); ANA REFLEX - SJOGRENS AB SSA <0.2 AI (0.0-0.9); ANA REFLEX - SJOGRENS AB SSB <0.2 AI (0.0-0.9); ANA REFLEX - SMITH AB <0.2 AI (0.0-0.9)
--- NOTE | 2019-12-09 10:07 | NUR ---
REPORT GIVEN PHYLLIS GARCIA.
--- NOTE | 2019-12-09 19:00 | NUR ---
SHIFT ASSESSMENT COMPLETED. PT CARE ASSUMED.MONITORS ON AND WORKING. VENT SETTINGS NOTED. PADILLA CATH STAT LOCKED IN PLACE. WILL CONTINUE TO OBSERVE.
[2019-12-10] VITALS (21 sets, daily range): BP systolic 153–190; BP diastolic 77–98
[2019-12-10 04:49] LABS: BASOPHILS 0 % (0-2); EOSINOPHILS 0 % (0-7); HEMATOCRIT 28.4 % (36.0-48.0); HEMOGLOBIN 9.2 g/dL (12-16); IMMATURE GRANULOCYTES 1.3 % (0-5); LYMPHOCYTES 11.7 % (15-50); MCH 28.3 pg (26.0-34.0); MCHC 32.4 g/dL (31.0-37.0); MCV 87.4 fL (80.0-100.0); MEAN PLATELET VOLUME 9.3 fL (7.4-10.4); MONOCYTES 5.1 % (2-11); NEUTROPHILS 81.9 % (40-80); PLATELET COUNT 244 10x3/uL (130-400); RBC 3.25 10x6/uL (4.00-5.40); RDW 17.3 % (11.5-14.5)
[2019-12-10 04:55] LABS: WBC 4.7 10x3/uL (4.8-10.8)
[2019-12-10 05:12] LABS: ALBUMIN 2.8 g/dL (3.4-5.0); ANION GAP 20.8 mmol/L (8-16); BILIRUBIN - TOTAL 0.39 mg/dL (0.2-1.3); CALCIUM 8.5 mg/dL (8.5-10.1); CARBON DIOXIDE 21.9 mmol/L (21.0-32.0); CREATININE - SERUM 3.7 mg/dL (0.6-1.3); POTASSIUM - SERUM 3.7 mmol/L (3.5-5.1); PROTEIN - SERUM 6.9 g/dL (6.4-8.2)
--- NOTE | 2019-12-10 08:25 | NUR ---
ROUNDING AND NEW ORDERS OBTAINED AND PLACED. PT WILL START OGT FEEDING TODAY. WILL CPOC.
--- NOTE | 2019-12-10 10:11 | NUR ---
Nutrition Follow-up: Pt intubated/sedated. Noted plans to start Nepro @ 20 mL/hr today (provides 864 kcal & 39 g protein daily). Receiving Diprivan @ 27 mL/hr (provides 713 kcal daily). Diet: Nepro @ 20 mL/hr Wt: 133# (12/07) Last BM: 12/08 per chart Labs noted: Na 150, K_ 3.7, Glu 139, Alb 2.8 Meds noted: D5 1/2NS/KCl @ 50, Diprivan, Nystatin, Lactulose, Pepcid, Remeron, Carafate, Protonix, Solumedrol -TF as tolerated per MD. -RD following.
--- NOTE | 2019-12-10 10:26 | NUR ---
PTS CALLED FOR AN UPDATE AND WAS UPDATED. CURRENTLY WEANED SEDATION ALL THE WAY DOWN TO 15MCG OF PROPOFOL. PT TRYING A CPAP TRIAL AT THIS TIME. STARTED NEW ORDER OF FLUIDS PER RENAL AND INITIATED NEPRO TUBE FEEDING VIA OGT CONFIRMED WITH AUSCULTATION PRIOR TO USE AND NO CURRENT RESIDUAL. FEEDING GOIND AT 20CC/HR. WILL CPOC.
--- NOTE | 2019-12-10 11:30 | NUR ---
PT INCONTINENT OF BOWEL. COMPLETE BED CHANGE AND HALF BATH PROVIDED. EXTENSIVE PADILLA CARE DONE PT HAD FECES ON HER JOANNE AREA. PT VERY AWAKE AND ROWDY SHE HAS HER PROPOFOL WEANED ALL THE WAY DOWN FOR HER CPAP TRIAL. PT CONSTANTLY PULLING AT HER STUFF AND FIGHTING HER RESTRAINTS TRIED TALKING TO HER AND REASSURING HER BUT SHE WILL NOT LISTEN. CPAP TRIAL GOING GOOD THOUGH. NO IMMEDIATE NEEDS AT THIS TIME. PULLED PT UP IN BED AND WILL CPOC.
[2019-12-10 13:12] LABS: ANTI-GLOMERULAR BASMENT MEMBRN 3 units (0-20)
--- NOTE | 2019-12-10 13:47 | NUR ---
URINE ORDERED TWO DAYS AGO AND STILL NOT COLLECTED. UNSURE ON REASONING PT HAS A PADILLA CATHETER. COLLECTED AND SENT TO LAB NOW.
[2019-12-10 13:58] LABS: CREATININE - URINE 37.7 mg/dL (30-125); PROTEIN - URINE 188.3 mg/dL (0.0-11.9)
[2019-12-10 15:12] LABS: ANCA - ANTIMYELOPEROXIDASE <9.0 U/mL (0.0-9.0); ANCA - ANTIPROTEINASE 3 <3.5 U/mL (0.0-3.5); ANCA - ATYPICAL <1:20 titer (Neg:<1:20); ANCA - CYTOPLASMIC <1:20 titer (Neg:<1:20); ANCA - PERINUCLEAR <1:20 titer (Neg:<1:20)
--- NOTE | 2019-12-10 16:28 | NUR ---
PT PASSED CPAP TRIAL AND IS NOW EXTUBATED. RESTRAINTS REMOVED. PROPOFOL COMPLETELY OFF AND TUBE FEEDING REMOVED. ORAL CARE PERFORMED. PT INCONTINENT OF DARK LOOSE STOOL. COMPLETE LINEN CHANGE PROVIDED AND PULLED PT UP IN BED. NO IMMEDIATE NEEDS AT THIS TIME. WILL UPDATE . RR NONLABORED AND EVEN WITH NC @4L IN PLACE. PULSE OX 95%
--- NOTE | 2019-12-10 18:39 | NUR ---
PT ATTEMPTING TO CRAWL OUT OF BED. REPOSITIONED PT UP IN BED AND ENCOURAGED HER TO PLEASE STAY IN BED AND CALL FOR HELP IF NEEDED. PT TRYING TO TALK BUT I CANT REALLY UNDERSTAND HER. BUILT IN BED ALARM ON. WILL CTM.
[2019-12-11] VITALS (48 sets, daily range): BP systolic 115–202; BP diastolic 55–106
[2019-12-11 04:34] LABS: BASOPHILS 0 % (0-2); EOSINOPHILS 0 % (0-7); HEMOGLOBIN 9.8 g/dL (12-16); IMMATURE GRANULOCYTES 0.8 % (0-5); LYMPHOCYTES 5.9 % (15-50); MCH 27.8 pg (26.0-34.0); MCHC 31.6 g/dL (31.0-37.0); MCV 87.8 fL (80.0-100.0); MONOCYTES 7.3 % (2-11); PLATELET COUNT 255 10x3/uL (130-400); RBC 3.53 10x6/uL (4.00-5.40); RDW 17.5 % (11.5-14.5)
[2019-12-11 04:47] LABS: CALCIUM 9.2 mg/dL (8.5-10.1); CREATININE - SERUM 3.5 mg/dL (0.6-1.3); MAGNESIUM - SERUM 1.8 mg/dL (1.8-2.4); PHOSPHOROUS 5.7 mg/dL (2.5-4.9); WBC 10.1 10x3/uL (4.8-10.8)
--- NOTE | 2019-12-11 07:45 | NUR ---
BP 202/101, AGITATED, PRN LABETALOL AND ATIVAN GIVEN PER ORDER
--- NOTE | 2019-12-11 09:30 | NUR ---
BP 197/116, PRN HYDRALIZINE AND CLONIDINE PATH GIVEN
--- NOTE | 2019-12-11 10:20 | NUR ---
BP CONTINUES TO BE HIGH, PC TO DR SUTHERLAND, NEW ORDER GIVEN FOR CARDENE GTT, KCL AND MAG ORDER GIVEN FOR REPLACEMENT, AND SE ORDERED
--- NOTE | 2019-12-11 10:40 | NUR ---
PC FROM MR CHAUDHARI, SECRITY CODE OBTAINED AND STATUS UPDATED,
--- NOTE | 2019-12-11 11:00 | NUR ---
BP 154/76 NOW WILL CONTINUE WITH POC, CARDENE GTT AT 7 MG/HR, NO OTHER ACUTE CHANGES FROM PREVIOUS
--- NOTE | 2019-12-11 11:30 | NUR ---
O2 SAT TRENDING DOWN, HFNC TITRATED TO 7L, BP 134/72
--- NOTE | 2019-12-11 11:55 | NUR ---
O2 CONTINUES TO TREND DOWN, BIPAP INTITIATED 60% FIO2 BY RT
--- NOTE | 2019-12-11 14:15 | NUR ---
SP HERE FOR SE, COMPLETED AND PATIENT PASSED STATE THEY WILL RECOMMEND AND ORDER A DIET
--- NOTE | 2019-12-11 15:15 | NUR ---
BIPAP OFF FOR MEDS, RESTARTED HOME BP MEDS, WILL CONTINUE TO MONITOR
--- NOTE | 2019-12-11 19:37 | NUR ---
PT WATCHING TV. SHE IS CONFUSED TO PLACE, TIME AND SITUATION. NO DISTRESS NOTED. VITALS STABLE. O2 SAT 100% ON BIPAP 60% O2. BED IS LOW AND CALL LIGHT WITHIN REACH. BED ALARM ON. SIDE RAILS UP X 2.
[2019-12-12] VITALS (85 sets, daily range): BP systolic 102–165; BP diastolic 54–102
--- NOTE | 2019-12-12 04:13 | NUR ---
CARDENE DRIP SWITCHED FROM RIGHT WRIST TO RIGHT FOREARM PIV.
[2019-12-12 04:31] LABS: BASOPHILS 0 % (0-2); EOSINOPHILS 0 % (0-7); HEMATOCRIT 27.9 % (36.0-48.0); HEMOGLOBIN 8.9 g/dL (12-16); IMMATURE GRANULOCYTES 0.8 % (0-5); LYMPHOCYTES 5.9 % (15-50); MCH 28.2 pg (26.0-34.0); MCHC 31.9 g/dL (31.0-37.0); MCV 88.3 fL (80.0-100.0); MEAN PLATELET VOLUME 9.5 fL (7.4-10.4); MONOCYTES 4.3 % (2-11); RBC 3.16 10x6/uL (4.00-5.40); RDW 17.3 % (11.5-14.5); WBC 8.5 10x3/uL (4.8-10.8)
[2019-12-12 04:32] LABS: ANION GAP 16.2 mmol/L (8-16); CALCIUM 8.6 mg/dL (8.5-10.1); CARBON DIOXIDE 20.4 mmol/L (21.0-32.0); CREATININE - SERUM 3.6 mg/dL (0.6-1.3); PHOSPHOROUS 5.3 mg/dL (2.5-4.9); POTASSIUM - SERUM 3.6 mmol/L (3.5-5.1)
[2019-12-12 04:37] LABS: PLATELET COUNT 199 10x3/uL (130-400)
--- NOTE | 2019-12-12 10:01 | NUR ---
Nutrition Follow-up: Extubated 12/09. PRODUCTION TEAM MEMBER recs pureed with nectar thick liquids and 1:1 feeding. Diet: Renal, Pureed, Leoti Liquids, 1:1 Wt: 133# (12/07) Labs noted: K+ 3.6, Glu 148, PO4 5.3 Meds noted: Solumedrol, Nystatin, Lactulose, Pepcid, Remeron, Carafate, Protonix, D5 1/2NS/KCl @ 50 -Encourage PO intake and honor food preferences within diet restrictions. -RD following.
--- NOTE | 2019-12-12 10:23 | NUR ---
RT SWITCHED OVER TO 7L HFNC THIS AM. PT SAT UP TO EAT BREAKFAST. WAS A FEEDER. TOLERATED WELL. MORE ALERT THAN INITIAL ASSESSMENT THIS AM. SPOKE W/ HER AND UPDATE GIVEN.
--- NOTE | 2019-12-12 15:51 | NUR ---
DR. CREWS PAGED APPROX 1530. PT WENT INTO AFIB RVR AND REMAINS AT THAT RATE. HE ORDERS EKG AND ABG.
--- NOTE | 2019-12-12 16:31 | NUR ---
DR. LUND NOTIFIED OF A FIB RVR. NO NEW ORDERS.
--- NOTE | 2019-12-12 19:00 | NUR ---
REPORT GIVEN BY TREATING PLANT SUPERVISOR
--- NOTE | 2019-12-12 19:45 | NUR ---
SPOKE WITH PT . GAVE HIM AN UPDATE OF HOW PT IS DOING. HE KEPT REPEATING THAT NO ONE WOULD LET HIM SPEAK TO OR COME IN TO SEE PT. EXPLAINED WHY HE COULD NOT COME IN SEVERAL TIMES. I ANSWERED ALL HIS QUESTIOINS AND HE WAS SATISFIED WHEN WE HUNG UP.
--- NOTE | 2019-12-12 21:00 | NUR ---
ASSESSMENT COMPLETED. PT IS IN SOFT WRIST RESTRAINTS. SHE IS NOT TRYING TO FIGHT THEM AND IS NOT TRYING TO GET OOB. WHEN SHE SPEAKS TO ME SHE IS ALERT AND ORIENTED. SHE KNOWS WHO THE PRESIDENT IS, WHAT YEAR IT IS SHE DID NOT KNOW THAT SHE WAS IN THE HOSPITAL. PT WAS SPEAKING CLEARLY WHEN WE TALKED. SHE HAS A PADILLA CATHETER THAT IS DRAINING CONCENTRATED LOOKING URINE. SHE HAS AN IV IN THE RIGHT WRIST WITH D5 1/2 NS WITH 10 MEQ OF POTASSIUM RUNNING AT 50 ML/HR. SHE HAS A SALINE LOCK IN THE RIGHT AC. PT HAS TAKEN ALL HER PO MEDS CRUSHED WITH APPLESAUCE. SHE DRINKS WATER WITH NECTAR THICK LIQUID VERY WELL. WITHOUT CHOKING. THERE IS SOME REDNESS TO HER BOTTOM.
[2019-12-13] VITALS (64 sets, daily range): BP systolic 121–177; BP diastolic 66–98
--- NOTE | 2019-12-13 01:25 | NUR ---
PT CAUGHT TRYING TO GET OUT OF BED. SHE WAS PUT BACK IN HER BED AND EXPLAINED THAT SHE COULD NOT GET UP. SHE STATES SHE NEEDS TO TALK TO HER BUT I EXPLAINED THE TIME SITUATION AND HER WOULD BE ASLEEP. SHE SAID OK.
--- NOTE | 2019-12-13 01:33 | NUR ---
ATIVAN 1 MG GIVEN IV.
--- NOTE | 2019-12-13 02:05 | NUR ---
PT WAS GIVEN A BATH. THIS REALLY TIRED HER OUT. WITH WRIST RESTRAINTS OFF SHE CAN TURN FAIRLY EASILY. SHE LIKES TO KEEP THOSE LEGS CROSSED. SHE IS KEEPING HER SCDS ON WITHOUT C/O
--- NOTE | 2019-12-13 02:44 | NUR ---
IN ROOM TO BRIEFLY VISIT. I EXPLAINED THAT I WOULD BE BACK TO DO HER ASSESSMENT. PT DOES HAVE SOFT WRIST RESTRAINTS IN PLACE
[2019-12-13 04:20] LABS: BASOPHILS 0 % (0-2); EOSINOPHILS 0 % (0-7); HEMATOCRIT 28.7 % (36.0-48.0); IMMATURE GRANULOCYTES 0.7 % (0-5); LYMPHOCYTES 5.4 % (15-50); MCHC 31.4 g/dL (31.0-37.0); MCV 89.1 fL (80.0-100.0); MEAN PLATELET VOLUME 10.1 fL (7.4-10.4); MONOCYTES 2.9 % (2-11); PLATELET COUNT 152 10x3/uL (130-400); RBC 3.22 10x6/uL (4.00-5.40); RDW 17.4 % (11.5-14.5); WBC 8.5 10x3/uL (4.8-10.8)
[2019-12-13 04:29] LABS: INR 1.21 (0.85-1.17); PROTIME 15.2 SECONDS (11.6-15.0)
[2019-12-13 04:38] LABS: ANION GAP 16.7 mmol/L (8-16); CALCIUM 9.1 mg/dL (8.5-10.1); CREATININE - SERUM 3.6 mg/dL (0.6-1.3); PHOSPHOROUS 5.7 mg/dL (2.5-4.9); POTASSIUM - SERUM 3.7 mmol/L (3.5-5.1)
--- NOTE | 2019-12-13 05:05 | NUR ---
PT IS RESTING QUIETLY. NO C/0 OR NEEDS
--- NOTE | 2019-12-13 05:10 | NUR ---
PT CAUGHT TRYING TO GET OUT OF BED. SHE IS WONDERING WHERE HER IS. I ORIENTED HER TO TIME AND PLACE. MEDS GIVEN
--- NOTE | 2019-12-13 06:21 | NUR ---
PT IS RESTING QUIETLY IN BED
[2019-12-14] VITALS (30 sets, daily range): BP systolic 105–180; BP diastolic 64–112
[2019-12-14 05:37] LABS: BASOPHILS 0 % (0-2); EOSINOPHILS 0 % (0-7); HEMATOCRIT 26.8 % (36.0-48.0); HEMOGLOBIN 8.4 g/dL (12-16); IMMATURE GRANULOCYTES 0.6 % (0-5); LYMPHOCYTES 4.8 % (15-50); MCH 27.5 pg (26.0-34.0); MCHC 31.3 g/dL (31.0-37.0); MCV 87.9 fL (80.0-100.0); MEAN PLATELET VOLUME 10.2 fL (7.4-10.4); MONOCYTES 4.6 % (2-11); RBC 3.05 10x6/uL (4.00-5.40); RDW 17.4 % (11.5-14.5)
[2019-12-14 06:05] LABS: CALCIUM 8.9 mg/dL (8.5-10.1); CARBON DIOXIDE 17.6 mmol/L (21.0-32.0); CREATININE - SERUM 3.7 mg/dL (0.6-1.3); PHOSPHOROUS 4.9 mg/dL (2.5-4.9); POTASSIUM - SERUM 3.6 mmol/L (3.5-5.1)
[2019-12-14 06:06] LABS: PLATELET COUNT 190 10x3/uL (130-400); WBC 10.8 10x3/uL (4.8-10.8)
--- NOTE | 2019-12-14 06:55 | NUR ---
0334 HOME PICKED UP
--- NOTE | 2019-12-14 18:31 | NUR ---
1700 -AFIB - CHANGE IN RHYTHM, INCREASE IN O2 NEEDS AND INCREASE IN WORK OF BREATHING. SPOKE WITH DR YIP - NEW ORDERS - INCREASE CARDIZEM TO 60 MG EVERY 6 HOURS, STAT CHEST XRAY, ABG. PHONE RESULTS OF ABGS AND CHEST XRAY TO ENTENSIVIST AND ASK TO CONSIDER DIURESES.
--- NOTE | 2019-12-14 18:50 | NUR ---
NOTIFIED DR MORALES OF RESULTS OF CHEST XRAY AND NEW ORDERS. ABG'S PENDING
[2019-12-15] VITALS (33 sets, daily range): BP systolic 113–170; BP diastolic 63–103
[2019-12-15 05:02] LABS: BASOPHILS 0 % (0-2); EOSINOPHILS 0 % (0-7); HEMATOCRIT 26.5 % (36.0-48.0); HEMOGLOBIN 8.2 g/dL (12-16); IMMATURE GRANULOCYTES 0.6 % (0-5); LYMPHOCYTES 3.9 % (15-50); MCH 27.3 pg (26.0-34.0); MCHC 30.9 g/dL (31.0-37.0); MCV 88.3 fL (80.0-100.0); MEAN PLATELET VOLUME 10.5 fL (7.4-10.4); NEUTROPHILS 93.5 % (40-80); PLATELET COUNT 174 10x3/uL (130-400); RDW 17.5 % (11.5-14.5)
[2019-12-15 05:13] LABS: ANION GAP 18.1 mmol/L (8-16); CALCIUM 8.8 mg/dL (8.5-10.1); CARBON DIOXIDE 16.7 mmol/L (21.0-32.0); CREATININE - SERUM 3.9 mg/dL (0.6-1.3); PHOSPHOROUS 5.4 mg/dL (2.5-4.9); POTASSIUM - SERUM 3.8 mmol/L (3.5-5.1)
--- NOTE | 2019-12-15 08:09 | NUR ---
WEANED CARDENE DRIP DOWN TO 3MG/HR BP STARTING TO STABILIZE. WILL CONTINUE TO WEAN AVAILABLE AND TREAT PT WITH PRN LABETALOL AND APRESOLINE ORDERED. PT STILL IN AFIB BUT RATE IS CONTROLLED.
--- NOTE | 2019-12-15 08:09 | NUR ---
RESTING IN BED WITH EYES CLOSED EASILY TO AROUSED WHEN NAME IS CALLED. RESP EVEN UNLABORED WITH DISTRESS NOTED. HAS BIPAP IN USES AT THIS TIME. REMAIN IN RESTRAINTS. CHECKED ON OFTEN.
--- NOTE | 2019-12-15 08:57 | NUR ---
PTS BP REMAINS STABLE CONTINUING OF WEANING CARDENE DRIP. WEANED PT COMPLETELY OFF DRIP AND WILL TREAT PRN FOR HIGH BP ABLE. CALLED AND WAS UPDATED ON CURRENT PLAN OF CARE AND DISEASE PROCESS. PT WAS ABLE TO EAT A FEW BITES OF BREAKFAST NO S/S OF ASPIRATION NOTED. BIPAP BACK IN PLACE. NO CURRENT NEEDS WILL CPOC.
--- NOTE | 2019-12-15 09:05 | NUR ---
CALLED FOR UPDATE AT THIS TIME.
--- NOTE | 2019-12-15 10:14 | NUR ---
Nutrition follow-up: Pt with BIPAP in place Pt receiving a renal pureed diet with nectar thick liquids Nurse reports pt only ate ~3 bites of breakfast. Labs reviewed Wt: 133# RDN following.
--- NOTE | 2019-12-15 10:22 | NUR ---
PTS BP REMAINS CONTROLLED WITH PRN MEDICATIONS SHE IS STILL OFF THE CARDENE DRIP. WILL CONTINUE TO TRY AND KEEP CONTROL OF THIS WITH PRIMARY NURSE.
--- NOTE | 2019-12-15 10:47 | NUR ---
PHYSICAL THERAPY JUST GOT PT UP TO CHAIR AT THIS TIME. C/L IN REACH AT BEDSIDE.
--- NOTE | 2019-12-15 10:53 | NUR ---
PT UP TO BEDSIDE CHAIR WITH THERAPY. HR JUMPED UP TO 112 UNCONTROLLED A.FIB. PROVIDED PT WITH PRN LABETALOL SBP>150. WILL CPOC.
--- NOTE | 2019-12-15 12:30 | NUR ---
ASSISTED BACK TO BED AT THIS TIME BY THIS NURSE D/T PT TRYING TO GET UP UNASSISTED. C/L IN REACH A BEDSIDE.
--- NOTE | 2019-12-15 12:46 | NUR ---
CALLED FOR UPDATE.
--- NOTE | 2019-12-15 13:38 | NUR ---
REST WELL AT THIS TIME WITH EYES CLOSED EASILY TO AROUSED WHEN NAME IS CALLED. C/L IN REACH AT BEDSIDE.
--- NOTE | 2019-12-15 14:18 | NUR ---
PTS BP REMAINS STABLE OFF CARDENE DRIP WILL KEEP HER OFF OF IT AND CONTINUE TO MONITER BP AND TREAT PRN FOR HTN. PT LYING BACK IN BED RESTING QUIETLY. PT C/O BEING COLD AND WAS PROVIDED WITH A WARM BLANKET. NO FURTHER NEEDS AT THIS TIME. CL IN REACH. WILL CTM.
--- NOTE | 2019-12-15 18:03 | NUR ---
FACUNDO CHAUDHARI WHICH IS PT HUBSAND CALLED AT THIS TIME WITH UPDATED GIVEN.
[2019-12-15 18:08] LABS: SPE - A/G RATIO 0.8 (0.7-1.7); SPE - ALBUMIN 2.8 g/dL (2.9-4.4); SPE - ALPHA-1 GLOBULIN 0.3 g/dL (0.0-0.4); SPE - ALPHA-2 GLOBULIN 1.1 g/dL (0.4-1.0); SPE - BETA GLOBULIN 0.7 g/dL (0.7-1.3); SPE - GAMMA GLOBULIN 1.2 g/dL (0.4-1.8); SPE - M-SPIKE Not Observed g/dL (Not Observed); SPE - TOTAL PROTEIN 6.1 g/dL (6.0-8.5)
--- NOTE | 2019-12-15 19:20 | NUR ---
SHIFT ASSESSMENT PER FLOW SHEET, VS CONTINUE, IV IN RIGHT FA INTACT WITH NO REDNESS OR EDEMA INFUSING VIA PUMP D5W AT 75 ML/HR PER MD ORDERS, SEE EMAR, PADILLA CATH DRAINING LIGHT YELLOW URINE, PT DENIES PAIN, SCD'S NOTED TO BE TURNED OFF AT THIS TIME, SCD'S TURNED ON AND WORKING PROPERLY, PT DENIES NEEDS AT THIS TIME, BED IN LOW POSITION, SIDE RAILS X 2, CALL LIGHT IN REACH
--- NOTE | 2019-12-15 20:34 | NUR ---
PT RESTING WITH EYES CLOSED, O2 NOTED TO BE OFF, PT AROUSES TO SOFT VERBAL STIMULATION, O2 PLACED BACK ON, PT DENIES NEEDS AT THIS TIME
--- NOTE | 2019-12-15 22:18 | NUR ---
PT AWAKE, ADM 2100 MEDS PER MD ORDERS, SEE EMAR, PILLS CRUSHED AND PLACED IN APPLESAUCE, PT JERILYN WELL
[2019-12-16] VITALS (18 sets, daily range): BP systolic 116–174; BP diastolic 59–89; Ht 162.6 cm; Wt 54.5 kg
--- NOTE | 2019-12-16 00:26 | NUR ---
PT AWAKE, BIPAP ON, REMOVED PER IGNACIO, RESP, ADM 0015 MED CRUSHED AND PLACED IN APPLESAUCE, PT JERILYN WELL, IGNACIO, RESP PLACED PT BACK ON BIPAP, BED IN LOW POSITION, SIDE RAILS X 2, CALL LIGHT IN REACH
--- NOTE | 2019-12-16 02:24 | NUR ---
PT RESTING WITH EYES CLOSED, RESP QUIET, NO DISTRESS NOTED, LEFT UNDISTURBED AT THIS TIME, FALL PRECAUTIONS IN PLACE
--- NOTE | 2019-12-16 03:00 | NUR ---
PT RESTING WITH EYES CLOSED, RESP QUIET, NO DISTRESS NOTED, LEFT UNDISTURBED AT THIS TIME
--- NOTE | 2019-12-16 03:10 | NUR ---
SAURABH MELENDEZ RN, CHARGE NURSE AWARE OF BP
--- NOTE | 2019-12-16 05:00 | NUR ---
PT AWAKE, BIPAP REMOVED PER PT'S REQUEST, O2 PLACED BACK ON, VS CONTINUE, TEMP OBTAINED, I&O'S COLLECTED, PARTIAL BEDDING CHANGE, PT DENIES NEEDS OR PAIN AT THIS TIME, FALL PRECAUTIONS IN PLACE
[2019-12-16 05:25] LABS: ANION GAP 21.3 mmol/L (8-16); CALCIUM 8.5 mg/dL (8.5-10.1); CARBON DIOXIDE 14.4 mmol/L (21.0-32.0); CREATININE - SERUM 4.2 mg/dL (0.6-1.3); MAGNESIUM - SERUM 1.8 mg/dL (1.8-2.4); PHOSPHOROUS 5.7 mg/dL (2.5-4.9); POTASSIUM - SERUM 3.7 mmol/L (3.5-5.1)
[2019-12-16 05:26] LABS: BASOPHILS 0 % (0-2); EOSINOPHILS 0 % (0-7); HEMATOCRIT 26.1 % (36.0-48.0); HEMOGLOBIN 8.2 g/dL (12-16); IMMATURE GRANULOCYTES 0.8 % (0-5); LYMPHOCYTES 5.3 % (15-50); MCH 27.6 pg (26.0-34.0); MCHC 31.4 g/dL (31.0-37.0); MCV 87.9 fL (80.0-100.0); MEAN PLATELET VOLUME 10.6 fL (7.4-10.4); MONOCYTES 3.1 % (2-11); NEUTROPHILS 90.8 % (40-80); PLATELET COUNT 178 10x3/uL (130-400); RBC 2.97 10x6/uL (4.00-5.40); RDW 17.3 % (11.5-14.5); WBC 8.9 10x3/uL (4.8-10.8)
--- NOTE | 2019-12-16 06:02 | NUR ---
PT AWAKE, ADM 0600/0700 MEDS PER MD ORDERS, CRUSHED AND PLACED IN APPLESAUCE, PT JERILYN WELL, DENIES NEEDS OR PAIN AT THIS TIME
--- NOTE | 2019-12-16 07:00 | NUR ---
REC'D REPORT AND RESUMED CARE, AA, CONFUSED WITH GARBLED SPEECH, RIGHT FA PIV, D5W AT 75, LEAKING TO GOWN, AFTER ASSESSMENT, REMOVED PIV GAUZE DRESSING APPLIED, NO NEEDS AT THIS TIME
--- NOTE | 2019-12-16 10:30 | NUR ---
CALLED TO ROOM, UP IN CHAIR, LARGE STOOL TO CHAIR, STATES SHE SILL HAS TO GO MORE, BEDSIDE COMMODE TO BEDSIDE, LARGE S0FT STOOL TO JACINTO, SKINCARE AND LINEN CHANGE COMPLETED, BACK TO CHAIR PER REQUEST
--- NOTE | 2019-12-16 14:55 | NUR ---
OT NOTE: BED MOB WITH MIN ASSIST; SIT TO STAND WITH MIN ASSIST; TRANSFER TO CHAIR WITH MOD ASSIST; PT WITH INCONT EPISODE AND REQUIRED FULL PERINEAL CARE; ASSIST REQUIRED FOR WASHING HANDS AND FACE WITH CLOTH. MAX ASSIST TO DUNG SOCKS AND MIN ASSIST TO DUNG GOWN. ABLE TO PERFORM A FEW UE/LE EXS WHILE UP IN CHAIR ISMAEL KILLIAN, OTR/L
--- NOTE | 2019-12-16 15:10 | NUR ---
Rehab Note- Acute Inpatient Rehab prescreen order received. The patient has [facility] [employer] insurance and will require a PreAuth. Will begin the PreAuth process. Will follow at this time. Thank you for this referral! Carmen Bermudez RN Clinical Liaison, [facility] Rehab
--- NOTE | 2019-12-16 18:00 | NUR ---
OT NOTE: PT COMPLETED UE A/AROM TOLERATED. PT REQUIRED MOD A WITH HAND HYGIENE SECONDARY TO DIFFICULTY WITH SEQUENCING STEPS FOR TASK. [phone] THANK YOU,DAVIN POTTS
[2019-12-17] VITALS: BP 133/60
[2019-12-17 04:00] VITALS: BP 166/72
[2019-12-17 06:04] LABS: BASOPHILS 0 % (0-2); EOSINOPHILS 0.3 % (0-7); HEMATOCRIT 26.5 % (36.0-48.0); HEMOGLOBIN 8.5 g/dL (12-16); IMMATURE GRANULOCYTES 0.8 % (0-5); LYMPHOCYTES 12.8 % (15-50); MCHC 32.1 g/dL (31.0-37.0); MCV 87.2 fL (80.0-100.0); MEAN PLATELET VOLUME 10.7 fL (7.4-10.4); MONOCYTES 11.5 % (2-11); NEUTROPHILS 74.6 % (40-80); PLATELET COUNT 168 10x3/uL (130-400); RBC 3.04 10x6/uL (4.00-5.40); RDW 17.3 % (11.5-14.5); WBC 7.9 10x3/uL (4.8-10.8)
[2019-12-17 07:34] LABS: ALBUMIN 2.5 g/dL (3.4-5.0); ANION GAP 20.5 mmol/L (8-16); BILIRUBIN - TOTAL 0.27 mg/dL (0.2-1.3); CALCIUM 8.6 mg/dL (8.5-10.1); CARBON DIOXIDE 13.9 mmol/L (21.0-32.0); CREATININE - SERUM 4.4 mg/dL (0.6-1.3); POTASSIUM - SERUM 3.4 mmol/L (3.5-5.1); PROTEIN - SERUM 5.9 g/dL (6.4-8.2)
[2019-12-17 08:45] VITALS: BP 144/61
--- NOTE | 2019-12-17 10:27 | NUR ---
[facility] NURSE INSERTED 20 GUAGE IV IN LEFT FOREARM. FIRST ATTEMPT.
[2019-12-17 11:36] VITALS: BP 146/58
--- NOTE | 2019-12-17 15:40 | NUR ---
Rehab Note- Received call from Kendra with [facility] that their medical data entry clerk denied the patient an inpatient rehab stay that her needs can be met at a lower level of care. A peer to peer can be set up by 1500 on 12/17 by calling Kendra with [facility] at [phone] with the physician's name, #, and an appropriate time to call for peer to peer. Notified JOANIE Mckee. Thank you for this referral! Carmen Bermudez RN Clinical Liaison, [facility] Rehab
--- NOTE | 2019-12-17 15:45 | NUR ---
PATIENT IN BED RESTING. AT BEDSIDE. BED LOW POSITION, CALL LIGHT IN REACH, KEV ALARM ON. DENIES NEEDS AT THIS TIME. WILL CONTINUE TO MONITOR.
--- NOTE | 2019-12-17 15:47 | NUR ---
OT NOTE: PT NOT FEELING WELL TODAY. PERFORMED BED MOB WITH MIN ASSIST. DIFFICULTY WITH SIMPLE ADL TASKS. SIT TO STAND WITH MIN ASSIST. ISMAEL KILLIAN, OTR/L
--- NOTE | 2019-12-17 16:42 | NUR ---
OT NOTE: PT COMPLETED SUPINE TO SIT WITH MOD A. PT COMPLETED EOB SITTING WITH MIN A. PT WAS NAUSEATED. JIN NOTIFIED NURSING THAT PT WAS NAUSEATED. [phone] THANK YOU,DAVIN POTTS
[2019-12-17 16:55] VITALS: BP 143/71
[2019-12-17 20:00] VITALS: BP 153/74
--- NOTE | 2019-12-17 20:00 | NUR ---
PT LYING IN BED SLEEPING WITHOUT DISTRESS, IV LEFT FA INFUSING D5 @ 75. CL IN REACH, KEV ON. WILL CTM
--- NOTE | 2019-12-17 21:00 | NUR ---
CALLED TELE FOR MONITOR, NONE AVAILABLE AT THIS TIME
[2019-12-18] VITALS: BP 157/74
[2019-12-18 04:00] VITALS: BP 154/72
--- NOTE | 2019-12-18 09:00 | NUR ---
ALERT AND ORIENTED X3. O2 4L N/C. WITH LUNGS DIMINISHED X4 ANTERIOR NO DYSPNEA NOTED AT THIS TIME.. IVF INFUSING TO LEFT F/A AT PRESCRIBED RATE. AT BEDSIDE AND ENCOURAGED TO USE CALL LIGHT FOR ASSSIT.
[2019-12-18 09:18] VITALS: BP 161/73
[2019-12-18 12:30] VITALS: BP 164/76
--- NOTE | 2019-12-18 12:54 | NUR ---
OT NOTE: BED MOB WITH MIN ASSIST; ONCE UP TO SIDE OF BED, PT BECAME VERY NAUSEOUS. SPEECH IS IMPROVED, HOWEVER, PT REMAINS CONFUSED WITH POOR STM. ABLE TO WASH FACE AND HANDS WITH SET UP. RESISTANT TO GET UP INTO CHAIR DUE TO NAUSEA. ISMAEL KILLIAN, OTR/L [phone]
--- NOTE | 2019-12-18 13:03 | MORECARE ---
CASE MANAGEMENT DISCHARGE SUMMARY PATIENT: ISRAEL CHAUDHARI UNIT: [id number] ADM DATE: 12/04/19 AGE: 69 : 49 SEX: F ROOM/BED: D.220 AUTHOR: MAK PALENCIA PHYSICIAN: REFERRING PHYSICIAN: SELIN LUND MD DATE OF SERVICE: 12/18/19 Discharge Plan Patient Name: ISRAEL CHAUDHARI Facility: [facility]:[place] : 1950 Planned Disposition: Home with Home Health Anticipated Discharge Date: Discharge Date: Expected LOS: Initial Reviewer: [id number] Initial Review Date: 12/04/2019 Generated: 12/18/19 2:03 pm Comments DCP- Discharge Planning Updated by [email or web address]: Montserrat Sam on 12/17/19 6:[address] LATE ENTRY 12/16/19 CM attempted to meet with patient to discuss discharge planning. Patient is very [place] and it was very difficult to communicate with patient. She did say that she lives at home with her and that she has home 02. She gave CM permission to contact her for discharge plan. CM attempted to call Chip Chaudhari - spouse - [phone]. and didn't get an answer. CM will continue to follow and assist as needed with discharge planning / needs. Patient Name: ISRAEL CHAUDHARI Page [id number] at 1303 All edits/amendments must be made on the electronic document DICTATION DATE: 12/18/19 1303 COMMUNICATIONS OFFICER: AUTUMN 12/18/19 1303 RPT#: [id number] DC DATE: STATUS: ADM IN [facility] [address] [place] [address] END OF REPORT
--- NOTE | 2019-12-18 13:14 | MORECARE ---
CASE MANAGEMENT DISCHARGE SUMMARY PATIENT: ISRAEL CHAUDHARI UNIT: [id number] ADM DATE: 12/04/19 AGE: 69 : 49 SEX: F ROOM/BED: D.0410 AUTHOR: MAK PALENCIA PHYSICIAN: REFERRING PHYSICIAN: SELIN LUND MD DATE OF SERVICE: 12/18/19 Discharge Plan Patient Name: ISRAEL CHAUDHARI Facility: [facility]:[place] : 1950 Planned Disposition: Home with Home Health Anticipated Discharge Date: Discharge Date: Expected LOS: Initial Reviewer: [id number] Initial Review Date: 12/04/2019 Generated: 12/18/19 2:13 pm Comments DCP- Discharge Planning Updated by [id number]: Belén Garcia on 12/18/19 12:[address] Patient Name: ISRAEL CHAUDHARI Admission Status: ER Accout number: [id number] Admission Date: 12-04-2019 : 1950 Admission Diagnosis:PNEUMONIA, UNSPECIFIED ORGANISM Attending: SELIN LUND Current LOS: 14 Anticipated DC Date: Planned Disposition: Home with Home Health Primary Insurance: [facility] [employer] SOLUTIONS Discharge Planning Comments: CM MET WITH PATIENT AND TO DISCUSS DISCHARGE PLANNING NEEDS. DR LUND SPOKE WITH ME YESTERDAY ABOUT HOSPICE WITH THIS PATIENT. WHEN I MET WITH THEM TODAY THE WAS NOT ON BOARD. I TRIED TO EXPLAIN IT TO HIM, BUT I DO NOT THINK HE UNDERSTOOD. THE PATIENT STATES THAT SHE HAS A HOSPITAL BED, VENT, HOME O2 ( WEARS 3 L ALL THE TIME) PORTABLE O2, WALKER, WHEELCHAIR, NEBULIZER AND A BATHUB AT HOME. SHE IS CURRENT WITH [facility] & WOULD LIKE TO CONTINUE TO USE. THEY BOTH SAY THAT THEY HAVE PLENTY OF HELP. I TOLD THEM THAT DR LUND WILL BE HERE AND SPEAK WITH HIM ABOUT IT. IMM SERVED AND EXPLAINED. CM TO FOLLOW AND ASSIST NEEDED Health Promotion Officer: Belén Garcia DCP- Discharge Planning Updated by [id number]: Montserrat Sam on 12/17/19 6:[address] LATE ENTRY 12/16/19 CM attempted to meet with patient to discuss discharge planning. Patient is very [place] and it was very difficult to communicate with patient. She did say that she lives at home with her and that she has home 02. She gave CM permission to contact her for discharge plan. CM attempted to call Chip Chaudhari - spouse - [phone]. and didn't get an answer. CM will continue to follow and assist as needed with discharge planning / needs. DCPIA - Discharge Planning Initial Assessment Updated by [email or web address]: Belén Garcia on 12/18/19 1:05 pm * Is the patient Alert and Oriented? Yes * PCP ASHELY * Pharmacy [facility] * Preadmission Environment Home with Family * ADLs Partial Dependent * Partial ADLs (Assistance needed) Ambulation Medication Management * Equipment Bedside [facility] Bed Nebulizer Other Oxygen Rolling Walker Shower Chair Walker Wheelchair * Other Equipment "VENT" BATHTUB * List name and contact numbers for known caregivers / representatives who currently or will assist patient after discharge: LOREDO [phone] * Verbal permission to speak to the caregivers and representatives has been obtained from the patient. N/A * Community resources currently utilized Home Health * Please name any agencies selected above. [employer] [facility] * Additional services required to return to the preadmission environment? Yes * Can the patient safely return to the preadmission environment? Yes * Has this patient been hospitalized within the prior 30 days at any hospital? No Coverage Notice Reviewer: [email or web address] Queenie Garcia Notice Issued Date-Time: 12/18/2019 10:40 Notice Type: IM Discharge Notice Notice Delivered To: Patient Relationship to Patient: Pulper Tender Name: Delivery Method: HAND - Hand Delivered Soumya Days: Prior Verbal Notification: Recipient Understood Notice: Yes Recipient Signature: Yes Med Rec Note Co-signed by Attending: Coverage Notice Comment: IMM SERVED AND EXPLAINED Reviewer: [id number] Queenie Garcia Notice Issued Date-Time: 12/18/2019 10:40 Notice Type: Patient Choice Letter Notice Delivered To: Patient Relationship to Patient: Pulper Tender Name: Delivery Method: HAND - Hand Delivered Soumya Days: Prior Verbal Notification: Recipient Understood Notice: Yes Recipient Signature: Yes Med Rec Note Co-signed by Attending: Coverage Notice Comment: AJAY AMARAL Last DP export: 12/18/19 12:03 Patient Name: ISRAEL CHAUDHARI Page [phone] at 1314 All edits/amendments must be made on the electronic document DICTATION DATE: 12/18/191313 ANTENNA SPECIALIST: AUTUMN 12/18/191313 [facility]#: [id number] DC DATE: STATUS: ADM IN [facility] [address] [place] [address] END OF REPORT
[2019-12-18] MEDS ORDERED: CARDIZEM60 MG PO (16:37)
[2019-12-18] MEDS ORDERED: MEDROL DOSE PACK4 MG PO (16:39)
[2019-12-18 16:41] LABS: BASOPHILS 0 % (0-2); EOSINOPHILS 0.9 % (0-7); HEMATOCRIT 27.1 % (36.0-48.0); HEMOGLOBIN 8.5 g/dL (12-16); IMMATURE GRANULOCYTES 0.9 % (0-5); LYMPHOCYTES 8.9 % (15-50); MCH 27.5 pg (26.0-34.0); MCHC 31.4 g/dL (31.0-37.0); MCV 87.7 fL (80.0-100.0); MONOCYTES 10.7 % (2-11); NEUTROPHILS 78.6 % (40-80); PLATELET COUNT 154 10x3/uL (130-400); RBC 3.09 10x6/uL (4.00-5.40); RDW 17.2 % (11.5-14.5); WBC 6.7 10x3/uL (4.8-10.8)
[2019-12-18 16:48] LABS: ANION GAP 21.8 mmol/L (8-16); CALCIUM 8.3 mg/dL (8.5-10.1); CREATININE - SERUM 4.4 mg/dL (0.6-1.3); POTASSIUM - SERUM 3.8 mmol/L (3.5-5.1)
[2019-12-18 17:06] VITALS: BP 158/73
--- NOTE | 2019-12-18 18:18 | NUR ---
IV DISCONTINUED WITH PATIENT AND HSBAND VERBALZIED UNDERSTANDING. O2 4L N/C. PATIENT STATED WANTED [place] CATHETER DISCONTINUED. RISK VERSUS BENEFITS EXPLAINED BUT WAS PERSISTANT ON CATHETER REMOVAL PRIOR TODISCHARGE WITH 100OCC RAVEN URINE NOTED IN [place]
--- NOTE | 2019-12-19 07:15 | MORECARE ---
CASE MANAGEMENT DISCHARGE SUMMARY PATIENT: ISRAEL CHAUDHARI UNIT: [id number] ADM DATE: 12/04/19 AGE: 69 : 49 SEX: F ROOM/BED: D.4012 AUTHOR: MAK PALENCIA PHYSICIAN: REFERRING PHYSICIAN: SELIN LUND MD DATE OF SERVICE: 12/19/19 Discharge Plan Patient Name: ISRAEL CHAUDHARI Facility: [facility]:[place] : 1950 Planned Disposition: Home with Home Health Anticipated Discharge Date: Discharge Date: 12/18/2019 Expected LOS: Initial Reviewer: [id number] Initial Review Date: 12/04/2019 Generated: 12/19/19 8:15 am Comments DCP- Discharge Planning Updated by [id number]: Belén Garcia on 12/18/19 12:[address] Patient Name: ISRAEL CHAUDHARI Admission Status: ER Accout number: [id number] Admission Date: 12-04-2019 : 1950 Admission Diagnosis:PNEUMONIA, UNSPECIFIED ORGANISM Attending: SELIN LUND Current LOS: 14 Anticipated DC Date: Planned Disposition: Home with Home Health Primary Insurance: [facility] MED[employer] SOLUTIONS Discharge Planning Comments: CM MET WITH PATIENT AND TO DISCUSS DISCHARGE PLANNING NEEDS. DR LUND SPOKE WITH ME YESTERDAY ABOUT HOSPICE WITH THIS PATIENT. WHEN I MET WITH THEM TODAY THE WAS NOT ON BOARD. I TRIED TO EXPLAIN IT TO HIM, BUT I DO NOT THINK HE UNDERSTOOD. THE PATIENT STATES THAT SHE HAS A HOSPITAL BED, VENT, HOME O2 ( WEARS 3 L ALL THE TIME) PORTABLE O2, WALKER, WHEELCHAIR, NEBULIZER AND A BATHUB AT HOME. SHE IS CURRENT WITH [facility] & WOULD LIKE TO CONTINUE TO USE. THEY BOTH SAY THAT THEY HAVE PLENTY OF HELP. I TOLD THEM THAT DR LUND WILL BE HERE AND SPEAK WITH HIM ABOUT IT. IMM SERVED AND EXPLAINED. CM TO FOLLOW AND ASSIST NEEDED Instructional Design Consultant: Belén Garcia DCP- Discharge Planning Updated by [id number]: Montserrat Sam on 12/17/19 6:[address] LATE ENTRY 12/16/19 CM attempted to meet with patient to discuss discharge planning. Patient is very [place] and it was very difficult to communicate with patient. She did say that she lives at home with her and that she has home 02. She gave CM permission to contact her for discharge plan. CM attempted to call Chip Chaudhari - krystal - [phone]. and didn't get an answer. CM will continue to follow and assist as needed with discharge planning / needs. DCPIA - Discharge Planning Initial Assessment Updated by [id number]: Belén Garcia on 12/18/19 1:05 pm * Is the patient Alert and Oriented? Yes * PCP ASHELY * Pharmacy [facility] * Preadmission Environment Home with Family * ADLs Partial Dependent * Partial ADLs (Assistance needed) Ambulation Medication Management * Equipment Bedside [facility] Bed Nebulizer Other Oxygen Rolling Walker Shower Chair Walker Wheelchair * Other Equipment "VENT" BATHTUB * List name and contact numbers for known caregivers / representatives who currently or will assist patient after discharge: CHIP [phone] * Verbal permission to speak to the caregivers and representatives has been obtained from the patient. N/A * Community resources currently utilized Home Health * Please name any agencies selected above. [employer] [facility] * Additional services required to return to the preadmission environment? Yes * Can the patient safely return to the preadmission environment? Yes * Has this patient been hospitalized within the prior 30 days at any hospital? No External Providers External Provider: [facility] Next Contact Date: Service Request Date: Service Type: Resolution: Reviewer: Comments: Coverage Notice Reviewer: [id number] Garcia Notice Issued Date-Time: 12/18/2019 10:40 Notice Type: IM Discharge Notice Notice Delivered To: Patient Relationship to Patient: Transformation Analyst Name: Delivery Method: HAND - Hand Delivered Soumya Days: Prior Verbal Notification: Recipient Understood Notice: Yes Recipient Signature: Yes Med Rec Note Co-signed by Attending: Coverage Notice Comment: IMM SERVED AND EXPLAINED Reviewer: [id number] Queenie Garcia Notice Issued Date-Time: 12/18/2019 10:40 Notice Type: Patient Choice Letter Notice Delivered To: Patient Relationship to Patient: Transformation Analyst Name: Delivery Method: HAND - Hand Delivered Soumya Days: Prior Verbal Notification: Recipient Understood Notice: Yes Recipient Signature: Yes Med Rec Note Co-signed by Attending: Coverage Notice Comment: AJAY TUCKER export: 12/18/19 12:14 Patient Name: ISRAEL CHAUDHARI Page [id number] at 0715 All edits/amendments must be made on the electronic document DICTATION DATE: 12/19/19714 INORGANIC CHEMIST: AUTUMN 12/19/19714 RPT#: [id number] DC DATE:12/18/19 STATUS: DIS IN [facility] [address] [place] [address] END OF REPORT
--- NOTE | 2019-12-19 10:36 | MORECARE ---
CASE MANAGEMENT DISCHARGE SUMMARY PATIENT: ISRAEL HCAUDHARI UNIT: [id number] ADM DATE: 12/04/19 AGE: 69 : 49 SEX: F ROOM/BED: D.9615 AUTHOR: MAK PALENCIA PHYSICIAN: REFERRING PHYSICIAN: SELIN LUND MD DATE OF SERVICE: 12/19/19 Discharge Plan Patient Name: ISRAEL CHAUDHARI Facility: [facility]:[place] : 1950 Planned Disposition: Home with Home Health Anticipated Discharge Date: Discharge Date: 12/18/2019 Expected LOS: Initial Reviewer: [id number] Initial Review Date: 12/04/2019 Generated: 12/19/19 11:36 am Comments DCP- Discharge Planning Updated by [email or web address]: Belén Garcia on 12/19/19 9:[address] spoke with Ray at [facility] to let him know of the discharge yesterday evening. I have sent clinical info to [facility]. DCP- Discharge Planning Updated by [id number]: Belén Garcia on 12/18/19 12:[address] Patient Name: ISRAEL CHAUDHARI Admission Status: ER Accout number: [id number] Admission Date: 12-04-2019 : 1950 Admission Diagnosis:PNEUMONIA, UNSPECIFIED ORGANISM Attending: SELIN LUND Current LOS: 14 Anticipated DC Date: Planned Disposition: Home with Home Health Primary Insurance: [facility] MEDICARE SOLUTIONS Discharge Planning Comments: CM MET WITH PATIENT AND TO DISCUSS DISCHARGE PLANNING NEEDS. DR LUND SPOKE WITH ME YESTERDAY ABOUT HOSPICE WITH THIS PATIENT. WHEN I MET WITH THEM TODAY THE WAS NOT ON BOARD. I TRIED TO EXPLAIN IT TO HIM, BUT I DO NOT THINK HE UNDERSTOOD. THE PATIENT STATES THAT SHE HAS A HOSPITAL BED, VENT, HOME O2 ( WEARS 3 L ALL THE TIME) PORTABLE O2, WALKER, WHEELCHAIR, NEBULIZER AND A BATHUB AT HOME. SHE IS CURRENT WITH [facility] & WOULD LIKE TO CONTINUE TO USE. THEY BOTH SAY THAT THEY HAVE PLENTY OF HELP. I TOLD THEM THAT DR LUND WILL BE HERE AND SPEAK WITH HIM ABOUT IT. IMM SERVED AND EXPLAINED. CM TO FOLLOW AND ASSIST NEEDED Water Treatment Technician: Belén Garcia DCP- Discharge Planning Updated by [id number]: Montserrat Sam on 12/17/19 6:[address] LATE ENTRY 12/16/19 CM attempted to meet with patient to discuss discharge planning. Patient is very [place] and it was very difficult to communicate with patient. She did say that she lives at home with her and that she has home 02. She gave CM permission to contact her for discharge plan. CM attempted to call Chip Chaudhari [facility] [phone]. and didn't get an answer. CM will continue to follow and assist as needed with discharge planning / needs. DCPIA - Discharge Planning Initial Assessment Updated by [id number]: Belén Garcia on 12/18/19 1:05 pm * Is the patient Alert and Oriented? Yes * PCP ASHELY * Pharmacy [facility] * Preadmission Environment Home with Family * ADLs Partial Dependent * Partial ADLs (Assistance needed) Ambulation Medication Management * Equipment Bedside [facility] Bed Nebulizer Other Oxygen Rolling Walker Shower Chair Walker Wheelchair * Other Equipment "VENT" BATHTUB * List name and contact numbers for known caregivers / representatives who currently or will assist patient after discharge: CHIP [phone] * Verbal permission to speak to the caregivers and representatives has been obtained from the patient. N/A * Community resources currently utilized Home Health * Please name any agencies selected above. [facility] * Additional services required to return to the preadmission environment? Yes * Can the patient safely return to the preadmission environment? Yes * Has this patient been hospitalized within the prior 30 days at any hospital? No Coverage Notice Reviewer: [id number] Queenie Garcia Notice Issued Date-Time: 12/18/2019 10:40 Notice Type: IM Discharge Notice Notice Delivered To: Patient Relationship to Patient: Global Logistics Analyst Name: Delivery Method: HAND - Hand Delivered Soumya Days: Prior Verbal Notification: Recipient Understood Notice: Yes Recipient Signature: Yes Med Rec Note Co-signed by Attending: Coverage Notice Comment: IMM SERVED AND EXPLAINED Reviewer: [id number] Queenie Garcia Notice Issued Date-Time: 12/18/2019 10:40 Notice Type: Patient Choice Letter Notice Delivered To: Patient Relationship to Patient: Global Logistics Analyst Name: Delivery Method: HAND - Hand Delivered Soumya Days: Prior Verbal Notification: Recipient Understood Notice: Yes Recipient Signature: Yes Med Rec Note Co-signed by Attending: Coverage Notice Comment: AJAY AMARAL Last DP export: 12/19/19 6:15 Patient Name: ISRAEL CHAUDHARI Page [phone] at 1036 All edits/amendments must be made on the electronic document DICTATION DATE: 12/19/19 1036 AIR TRAFFIC CONTROL SUPERVISOR: AUTUMN 12/19/19 1036 RPT#: [id number] DC DATE:12/18/19 STATUS: DIS IN [facility] [address] [place] [address] END OF REPORT
--- NOTE | 2019-12-19 10:50 | MORECARE ---
CASE MANAGEMENT DISCHARGE SUMMARY PATIENT: ISRAEL CHAUDHARI UNIT: [id number] ADM DATE: 12/04/19 AGE: 69 : 48 SEX: F ROOM/BED: D.0588 AUTHOR: MAK PALENCIA PHYSICIAN: REFERRING PHYSICIAN: SELIN LUND MD DATE OF SERVICE: 12/19/19 Discharge Plan Patient Name: ISRAEL CHAUDHARI Facility: [facility]:[place] : 1950 Planned Disposition: Home with Home Health Anticipated Discharge Date: Discharge Date: 12/18/2019 Expected LOS: 0 Initial Reviewer: [email or web address] Initial Review Date: 12/04/2019 Generated: 12/19/19 11:49 am Comments DCP- Discharge Planning Updated by [id number]: Belén Garcia on 12/19/19 9:[address] spoke with Ray at [facility] to let him know of the discharge yesterday evening. [facility] DCP- Discharge Planning Updated by [email or web address]: Belén Garcia on 12/18/19 12:[address] Patient Name: ISRAEL CHAUDHARI Admission Status: ER Accout number: [id number] Admission Date: 12-04-2019 : 1950 Admission Diagnosis:PNEUMONIA, UNSPECIFIED ORGANISM Attending: SELIN LUND Current LOS: 14 Anticipated DC Date: Planned Disposition: Home with Home Health Primary Insurance: [facility] [employer] Discharge Planning Comments: CM MET WITH PATIENT AND TO DISCUSS DISCHARGE PLANNING NEEDS. DR LUND SPOKE WITH ME YESTERDAY ABOUT HOSPICE WITH THIS PATIENT. WHEN I MET WITH THEM TODAY THE WAS NOT ON BOARD. I TRIED TO EXPLAIN IT TO HIM, BUT I DO NOT THINK HE UNDERSTOOD. THE PATIENT STATES THAT SHE HAS A HOSPITAL BED, VENT, HOME O2 ( WEARS 3 L ALL THE TIME) PORTABLE O2, WALKER, WHEELCHAIR, NEBULIZER AND A BATHUB AT HOME. SHE IS CURRENT WITH [facility] & WOULD LIKE TO CONTINUE TO USE. THEY BOTH SAY THAT THEY HAVE PLENTY OF HELP. I TOLD THEM THAT DR LUND WILL BE HERE AND SPEAK WITH HIM ABOUT IT. [facility] SERVED AND EXPLAINED. CM TO FOLLOW AND ASSIST NEEDED Roll Off Driver: Belén Garcia DCP- Discharge Planning Updated by [id number]: Montserrat Sam on 12/17/19 6:[address] LATE ENTRY 12/16/19 CM attempted to meet with patient to discuss discharge planning. Patient is very LIME and it was very difficult to communicate with patient. She did say that she lives at home with her and that she has home 02. She gave CM permission to contact her for discharge plan. CM attempted to call Chip [facility]aud[facility] [phone]. and didn't get an answer. CM will continue to follow and assist as needed with discharge planning / needs. DCPIA - Discharge Planning Initial Assessment Updated by [email or web address]: Belén Garcia on 12/18/19 1:05 pm * Is the patient Alert and Oriented? Yes * PCP ASHELY * Pharmacy [place] * Preadmission Environment Home with Family * ADLs Partial Dependent * Partial ADLs (Assistance needed) Ambulation Medication Management * [facility] Nebul[facility] Other Oxygen Rolling Walker Shower Chair Walker Wheelchair * Other Equipment "VENT" BATHTUB * List name and contact numbers for known caregivers / representatives who currently or will assist patient after discharge: CHIP [phone] * Verbal permission to speak to the caregivers and representatives has been obtained from the patient. N/A * Community resources currently utilized Home Health * Please name any agencies selected above. [facility] * Additional services required to return to the preadmission environment? Yes * Can the patient safely return to the preadmission environment? Yes * Has this patient been hospitalized within the prior 30 days at any hospital? No Coverage Notice Reviewer: [email or web address] Queenie Garcia Notice Issued Date-Time: 12/18/2019 10:40 Notice Type: IM Discharge Notice Notice Delivered To: Patient Relationship to Patient: Hospice Care Transitions Coordinator Name: Delivery Method: HAND - Hand Delivered Soumya Days: Prior Verbal Notification: Recipient Understood Notice: Yes Recipient Signature: Yes Med Rec Note Co-signed by Attending: Coverage Notice Comment: IMM SERVED AND EXPLAINED Reviewer: [id number] Queenie Garcia Notice Issued Date-Time: 12/18/2019 10:40 Notice Type: Patient Choice Letter Notice Delivered To: Patient Relationship to Patient: Hospice Care Transitions Coordinator Name: Delivery Method: HAND - Hand Delivered Soumya Days: Prior Verbal Notification: Recipient Understood Notice: Yes Recipient Signature: Yes Med Rec Note Co-signed by Attending: Coverage Notice Comment: AJAY CRISTIN Last DP export: 12/19/19 9:36 Patient Name: ISRAEL CHAUDHARI Page [id number] at 1050 All edits/amendments must be made on the electronic document DICTATION DATE: 12/19/191048 ELECTRIC POWER LINE EXAMINER: AUTUMN 12/19/19 1049 RPT#: [id number] DC DATE:12/18/19 STATUS: DIS IN [facility] [address] [place] [address] END OF REPORT
--- NOTE | 2019-12-19 18:08 | NUR ---
OT NOTE: (DOS 12/18/2019) PT NOT FEELING WELL. PT COMPLETED BED MOB TASKS WITH MIN/MOD A. NURSING AWARE. [phone] THANK YOU,DAVIN POTTS
== END 2019-12-18 18:22 | disposition home health service (06) | DRG 208 ==
LOC: D.ER 20:06 → D.EDHOLD 22:45 → D.ICU 22:45 → D.MS 22:45 → D.ICU 12-07 10:31 → D.MS 12-16 17:38
PROVIDERS: Family Medicine; Internal Medicine; Internal Medicine Nephrology; Internal Medicine Pulmonary Disease; ADMIT Family Medicine; ATTEND Family Medicine
PROC: 0BH17EZ Insertion of Endotracheal Airway into Trachea, Via Natural or Artificial Opening (ICD-10-PCS; principal; 2019-12-07)
PROC: 5A1945Z Respiratory Ventilation, 24-96 Consecutive Hours (ICD-10-PCS; 2019-12-07)
DX: J18.9 Pneumonia, unspecified organism (principal); J96.21 Acute and chronic respiratory failure with hypoxia; G93.41 Metabolic encephalopathy; J96.22 Acute and chronic respiratory failure with hypercapnia; I50.33 Acute on chronic diastolic (congestive) heart failure; J44.1 Chronic obstructive pulmonary disease with (acute) exacerbation; E72.20 Disorder of urea cycle metabolism, unspecified; N18.4 Chronic kidney disease, stage 4 (severe); E87.2 Acidosis; J90 Pleural effusion, not elsewhere classified; J98.11 Atelectasis; I48.20 Chronic atrial fibrillation, unspecified; J96.10 Chronic respiratory failure, unspecified whether with hypoxia or hypercapnia; N17.9 Acute kidney failure, unspecified; J44.0 Chronic obstructive pulmonary disease with (acute) lower respiratory infection; K72.90 Hepatic failure, unspecified without coma; I12.9 Hypertensive chronic kidney disease with stage 1 through stage 4 chronic kidney disease, or unspecified chronic kidney disease; K74.60 Unspecified cirrhosis of liver; B19.20 Unspecified viral hepatitis C without hepatic coma; E87.5 Hyperkalemia; K21.9 Gastro-esophageal reflux disease without esophagitis; E03.9 Hypothyroidism, unspecified; R27.0 Ataxia, unspecified; D50.9 Iron deficiency anemia, unspecified; F17.200 Nicotine dependence, unspecified, uncomplicated; R13.12 Dysphagia, oropharyngeal phase; R53.81 Other malaise